=== PATIENT | male | born 1955 | race Caucasian/White ===

== ENCOUNTER 2016-10-21 20:51 | Inpatient (IN) ==
[2016-10-21] MEDS ORDERED: 0.9 % Sodium Chloride 1,000 ML IVC ONE ×3 (21:08→23:02)
[2016-10-21] MEDS ORDERED: 0.9 % Sodium Chloride 1,000 ML ONE (21:08)
[2016-10-21 21:28] LABS: Red Blood Count 3.08 M/mcL (4.19-5.50)
[2016-10-21 21:30] LABS: Hematocrit 31.1 % (37.5-50.1); Hemoglobin 10.7 g/dL (12.9-16.9); Immature Platelets 2.8 % (1.1-6.1); Mean Corpuscular HGB Conc 34.4 g/dL (31.6-35.5); Mean Corpuscular Hemoglobin 34.7 pg (28.0-33.3); Mean Platelet Volume 10.2 fL (9.4-12.4); Red Cell Distribution Width 16.7 % (11.5-14.5)
[2016-10-21 21:31] LABS: Platelet Count 56 K/mcL (140-400)
[2016-10-21 21:36] LABS: INR 2.4; Prothrombin Time 26.4 Seconds (9.4-12.1)
[2016-10-21 21:38] LABS: Activated Partial Thrombo Time 44.9 Seconds (26.0-36.0)
[2016-10-21 21:43] LABS: ABG Base Excess -8.1 mEq/L (-2.0 to 3.0); ABG HCO3 16.7 mEQ/L (21-27); ABG Oxygen Saturation 70 % (95-98); ABG PCO2 31 mmHg (35-45); ABG PH 7.34 pH Units (7.32-7.45); ABG TCO2 17.7 mEq/L (20-26); Blood Gas FiO2 21 %; Carboxyhemoglobin 1.6 % (0-5)
[2016-10-21 21:44] LABS: Alanine Aminotransferase 30 Units/L (0-55); Albumin/Globulin Ratio 0.4 (1.1-2.2); Alkaline Phosphatase 58 Units/L (38-126); Aspartate Amino Transferase 126 Units/L (5-34); BUN/Creatinine Ratio 14 (6-26); Bilirubin,Direct 3.6 mg/dL (0.0-0.5); Bilirubin,Indirect 1.9 mg/dL (0.0-1.2); Blood Urea Nitrogen 53 mg/dL (8-26); Calcium 8.4 mg/dL (8.6-10.8); Carbon Dioxide 15 mEq/L (19-29); Chloride 109 mEq/L (98-109); Creatine Kinase 1634 Units/L (30-200); Globulin 4.6 g/dL (2.4-3.5); Glucose 68 mg/dL (70-99); Osmolality,Calculated 301 (280-300); Potassium 3.5 mEq/L (3.5-4.5); Sodium 139 mEq/L (136-145); Total Protein 6.5 g/dL (6.0-8.3); eGFR For African Americans 19 (> 60); eGFR For Non-African Americans 16 (> 60)
[2016-10-21 21:44] LABS: ABG PO2 39 mmHg (85-104)
[2016-10-21 21:45] LABS: Albumin 1.9 g/dL (3.5-5.0); Ethanol < 10 mg/dL (0-10)
[2016-10-21 22:16] LABS: Lymphocytes # 1.1 K/mcL (0.6-4.6); Monocytes # 0.4 K/mcL (0.0-1.3); Neutrophils # 7.6 K/mcL (1.6-8.9)
[2016-10-21 22:18] LABS: Dohle Bodies Present (Not Present); Toxic Granulation Present (Not Present)
[2016-10-21 22:20] LABS: Anisocytosis 1+ (Not Present); Burr Cells 1+ (Not Present); Platelet Estimate Marked Decrease (Normal); Polychromasia 1+ (Not Present)
[2016-10-21 22:39] LABS: Thyroid Stimulating Hormone 0.763 mcIU/mL (0.350-4.840)
[2016-10-21 22:40] LABS: Bilirubin,Total 5.5 mg/dL (0.2-1.2)
--- NOTE | 2016-10-21 23:05 | Emergency Department Note ---
Disposition Clinical Impression: Dehydration Altered mental status Qualifiers: Altered mental status type: transient alteration of awareness Qualified Code(s) : R40.4 - Transient alteration of awareness Ascites Qualifiers: Ascites type: due to alcoholic cirrhosis Qualified Code(s): K70.31 - Alcoholic cirrhosis of liver with ascites Cirrhosis Qualifiers: Hepatic cirrhosis type: alcoholic cirrhosis Ascites presence: with ascites Qualified Code(s): K70.31 - Alcoholic cirrhosis of liver with ascites Acute kidney failure Qualifiers: Acute renal failure type: with acute tubular necrosis Qualified Code(s): N17.0 - Acute kidney failure with tubular necrosis Disposition: Admitted As Inpatient Condition: Fair Altered Mental Status HPI - General Chief Complaint: ED Altered Mental Status Stated Complaint: fell/hypoglycemic Time Seen by Provider: 10/21/16 20:57 Source: patient, EMS Limitations: altered mental status Nursing Notes Reviewed: Yes Vital Signs Reviewed: Yes - History of Present Illness HPI Narrative: She has a 61-year-old male who was found down in his home today he could have possibly been there for up to 48 hours. He does not have a life alert system when the squad arrived his blood sugar was 40. The patient is very confused he does not remember what happened and does not understand his surroundings at this time. His caregiver was present on arrival she states he has been more confused the last several days. He does suffer from chronic liver disease and gets frequent visits for paracentesis. The patient is unable to give any significant information on what happened he is not complaining of any pain. - Related Data Home Medications Medication Instructions Recorded Confirmed Ranitidine HCl [Heartburn Relief] 150 mg PO BID 02/28/16 10/22/16 Diazepam [Valium] 5 mg PO Q4H PRN 07/22/16 10/22/16 Previous Rx's Medication Instructions Recorded Furosemide [Lasix] 40 mg PO DAILY #30 tablet 04/26/16 Lactulose 20 gm PO BID 30 Days 04/26/16 Magnesium Oxide [Mag-Ox] 400 mg PO BID #60 tablet 07/24/16 Potassium Chloride 20 meq PO DAILY #30 tab.er.prt 07/24/16 HYDROcodone/Acet 5/325 mg [[place] 1 tab PO Q6H PRN #30 tab 08/25/16 5-325 mg] Nadolol [Corgard] 20 mg PO DAILY #30 tablet 12/16/16 Allergies Allergy/AdvReac Type Severity Reaction Status Date / Time aspirin AdvReac Severe Gastrointestinal Verified 08/23/16 07:43 Upset NSAIDS (Non-Steroidal AdvReac Severe Gastrointestinal Verified 08/23/16 07:43 Anti-Inflamma Upset Limitations: ROS unobtainable due to patients medical condition Past Medical History - Past Medical History Source: patient, old records reviewed, obtained from family, nursing notes reviewed Medical history: Reports: cirrhosis, hepatitis Surgical history: Reports: no surgical history Psychiatric history: Reports: no psych history - Social History Smoking Status: Current every day smoker Smokeless Tobacco Status: No Alcohol use: Reports: heavy, recent Drug use: Reports: none Physical Exam - General Limitations: altered mental status General appearance: in no apparent distress - Head Head exam: atraumatic, normocephalic, normal inspection - Eye Eye exam: Present: normal appearance, PERRL, EOMI - ENT ENT exam: mucous membranes dry - Neck Neck exam: Present: normal inspection, full ROM, trachea midline - Chest Chest inspection: Present: normal inspection, symmetric chest wall rise - Respiratory Respiratory exam: Present: other (Bilateral scattered rhonchi) - Cardiovascular Cardiovascular exam: Present: regular rate, normal rhythm, normal heart sounds - Abdominal Exam Abdominal exam: Present: distention, normal bowel sounds - Male exam: Present: scrotal swelling - Back Exam Back exam: Present: normal inspection, full ROM. Absent: tenderness - Neurological Exam Neurological exam: Present: alert, CN II-XII intact - Psychiatric Psychiatric exam: Present: other (Patient confused) Course - Reevaluation(s) Reevaluation #1: I requested dr. rivas hospitalist to eval at bedside. Time: 23:34 Reevaluation #2: SEPSIS FLUIDS NOT ORDERED DUE TO LARGE ASCITES, HOSPITALIST AT BEDSIDE, ZOSYN TO BE STARTED, CONT GENTLE HYDRATION. Time: 23:50 Vital Signs Temperature 97.3 F L 10/21/16 20:54 Pulse Rate 101 10/21/16 20:54 Respiratory Rate 16 10/21/16 20:54 Blood Pressure 87/57 10/21/16 20:54 O2 Sat by Pulse Oximetry 100 10/21/16 20:54 Temperature 97.4 F L 10/22/16 20:03 Pulse Rate 78 10/22/16 20:03 Respiratory Rate 23 10/22/16 20:03 Blood Pressure 99/62 10/22/16 20:03 O2 Sat by Pulse Oximetry 98 10/22/16 20:03 Oxygen Delivery Oxygen Delivery Nasal Cannula Altered Mental Status - Differential Diagnosis Likely: altered mental status, delirium, dementia, hypoglycemia, subarachnoid hemorrhage - Medical Records Medical records reviewed: Yes I reviewed the patient's medical records. - Lab Data Lab results reviewed: Yes I reviewed the patient's lab results. Result diagrams: 10/22/16 01:15 10/22/16 01:15 Lab Results 10/21/16 10/21/16 10/21/16 Range/Units 20:56 21:16 21:16 WBC 9.3 (4.3-11.1) K/mcL RBC 3.08 L (4.19-5.50) M/mcL Hgb 10.7 L (12.9-16.9) g/dL Hct 31.1 L (37.5-50.1) % MCV 101.0 H (83.0-100.0) fL MCH 34.7 H (28.0-33.3) pg MCHC 34.4 (31.6-35.5) g/dL RDW 16.7 H (11.5-14.5) % Plt Count 56 L (140-400) K/mcL MPV 10.2 (9.4-12.4) fL Seg Neutrophils % 40.0 % Band Neutrophils % 42.0 H (0-4) % Lymphocytes % 12.0 % Monocytes % 4.0 % Metamyelocytes % 2.0 H (0) % Neutrophils # 7.6 (1.6-8.9) K/mcL Lymphocytes # 1.1 (0.6-4.6) K/mcL Monocytes # 0.4 (0.0-1.3) K/mcL Toxic Granulation Present A (Not Present) Dohle Bodies Present A (Not Present) Platelet Estimate Marked Decrease L (Normal) Immature Plt Fraction 2.8 (1.1-6.1) % Polychromasia 1+ A (Not Present) Anisocytosis 1+ A (Not Present) [place] Cells 1+ A (Not Present) PT 26.4 H (9.4-12.1) Seconds INR 2.4 APTT 44.9 H (26.0-36.0) Seconds ABG pH (7.32-7.45) pH Units ABG pCO2 (35-45) mmHg ABG pO2 (85-104) mmHg ABG HCO3 (21-27) mEQ/L ABG Total CO2 (20-26) mEq/L ABG O2 Saturation (95-98) % ABG Base Excess (-2.0 to 3.0) mEq/L Carboxyhemoglobin (0-5) % Blood Gas Modality Inspired O2 % Sodium (136-145) mEq/L Potassium (3.5-4.5) mEq/L Chloride (98-109) mEq/L Carbon Dioxide (19-29) mEq/L BUN (8-26) mg/dL Creatinine (0.72-1.25) mg/dL Est GFR ( Amer) (> 60) Est GFR (Non-Af Amer) (> 60) BUN/Creatinine Ratio (6-26) Glucose (70-99) mg/dL POC Glucose 130 H (58-89) Calculated Osmolality (280-300) Lactic Acid (0.5-2.2) mmol/L Calcium (8.6-10.8) mg/dL Total Bilirubin (0.2-1.2) mg/dL Direct Bilirubin (0.0-0.5) mg/dL Indirect Bilirubin (0.0-1.2) mg/dL AST (5-34) Units/L ALT (0-55) Units/L Alkaline Phosphatase (38-126) Units/L Ammonia (18-72) mcmol/L Creatine Kinase (30-200) Units/L Troponin I (0-0.03) ng/mL Serum Total Protein (6.0-8.3) g/dL Albumin (3.5-5.0) g/dL Globulin (2.4-3.5) g/dL Albumin/Globulin Ratio (1.1-2.2) TSH (0.350-4.840) mcIU/mL Ethyl Alcohol (0-10) mg/dL A. baumannii (TEM-PCR) (Not Detect) Zoe albicans (PCR) (Not Detect) C. glabrata (PCR) (Not Detect) C. krusei (PCR) (Not Detect) C. parapsilosis (PCR) (Not Detect) C. tropicalis (PCR) (Not Detect) Enterobacteriac sp PCR (Not Detect) E. cloacae complex PCR (Not Detect) Enterococcus sp PCR (Not Detect) E. coli (PCR) (Not Detect) H. influenzae DNA (Not Detect) Klebsiella oxytoca PCR (Not Detect) Klebsiella pneumoniae (Not Detect) Listeria (PCR) (Not Detect) N. meningitidis (PCR) (Not Detect) Proteus species (PCR) (Not Detect) Serratia marcescens PCR (Not Detect) Staphylococcus sp PCR (Not Detect) Staph aureus (PCR) (Not Detect) MRS (TEM-PCR) (Not Detect) Streptococcus sp PCR (Not Detect) Group A Strep DNA (Not Detect) Group B Strep (PCR) (Not Detect) Strep pneumoniae (PCR) (Not Detect) P. aeruginosa (TEM-PCR) (Not Detect) VRE (PCR) (Not Detect) KPC (blaKPC) Detect PCR (Not Detect) 10/21/16 10/21/16 10/21/16 Range/Units 21:16 21:16 21:16 WBC (4.3-11.1) K/mcL RBC (4.19-5.50) M/mcL Hgb (12.9-16.9) g/dL Hct (37.5-50.1) % MCV (83.0-100.0) fL MCH (28.0-33.3) pg MCHC (31.6-35.5) g/dL RDW (11.5-14.5) % Plt Count (140-400) K/mcL MPV (9.4-12.4) fL Seg Neutrophils % % Band Neutrophils % (0-4) % Lymphocytes % % Monocytes % % Metamyelocytes % (0) % Neutrophils # (1.6-8.9) K/mcL Lymphocytes # (0.6-4.6) K/mcL Monocytes # (0.0-1.3) K/mcL Toxic Granulation (Not Present) Dohle Bodies (Not Present) Platelet Estimate (Normal) Immature Plt Fraction (1.1-6.1) % Polychromasia (Not Present) Anisocytosis (Not Present) [place] Cells (Not Present) PT (9.4-12.1) Seconds INR APTT (26.0-36.0) Seconds ABG pH (7.32-7.45) pH Units ABG pCO2 (35-45) mmHg ABG pO2 (85-104) mmHg ABG HCO3 (21-27) mEQ/L ABG Total CO2 (20-26) mEq/L ABG O2 Saturation (95-98) % ABG Base Excess (-2.0 to 3.0) mEq/L Carboxyhemoglobin (0-5) % Blood Gas Modality Inspired O2 % Sodium 139 (136-145) mEq/L Potassium 3.5 (3.5-4.5) mEq/L Chloride 109 (98-109) mEq/L Carbon Dioxide 15 L (19-29) mEq/L BUN 53 H (8-26) mg/dL Creatinine 3.84 H (0.72-1.25) mg/dL Est GFR ( Amer) 19 L (> 60) Est GFR (Non-Af Amer) 16 L (> 60) BUN/Creatinine Ratio 14 (6-26) Glucose 68 L (70-99) mg/dL POC Glucose (58-89) Calculated Osmolality 301 H (280-300) Lactic Acid (0.5-2.2) mmol/L Calcium 8.4 L (8.6-10.8) mg/dL Total Bilirubin 5.5 H (0.2-1.2) mg/dL Direct Bilirubin 3.6 H (0.0-0.5) mg/dL Indirect Bilirubin 1.9 H (0.0-1.2) mg/dL AST 126 H (5-34) Units/L ALT 30 (0-55) Units/L Alkaline Phosphatase 58 (38-126) Units/L Ammonia 68 (18-72) mcmol/L Creatine Kinase 1634 H (30-200) Units/L Troponin I 0.03 (0-0.03) ng/mL Serum Total Protein 6.5 (6.0-8.3) g/dL Albumin 1.9 L (3.5-5.0) g/dL Globulin 4.6 H (2.4-3.5) g/dL Albumin/Globulin Ratio 0.4 L (1.1-2.2) TSH 0.763 (0.350-4.840) mcIU/mL Ethyl Alcohol < 10 (0-10) mg/dL A. baumannii (TEM-PCR) (Not Detect) Zoe albicans (PCR) (Not Detect) C. glabrata (PCR) (Not Detect) C. krusei (PCR) (Not Detect) C. parapsilosis (PCR) (Not Detect) C. tropicalis (PCR) (Not Detect) Enterobacteriac sp PCR (Not Detect) E. cloacae complex PCR (Not Detect) Enterococcus sp PCR (Not Detect) E. coli (PCR) (Not Detect) H. influenzae DNA (Not Detect) Klebsiella oxytoca PCR (Not Detect) Klebsiella pneumoniae (Not Detect) Listeria (PCR) (Not Detect) N. meningitidis (PCR) (Not Detect) Proteus species (PCR) (Not Detect) Serratia marcescens PCR (Not Detect) Staphylococcus sp PCR (Not Detect) Staph aureus (PCR) (Not Detect) MRS (TEM-PCR) (Not Detect) Streptococcus sp PCR (Not Detect) Group A Strep DNA (Not Detect) Group B Strep (PCR) (Not Detect) Strep pneumoniae (PCR) (Not Detect) P. aeruginosa (TEM-PCR) (Not Detect) VRE (PCR) (Not Detect) KPC (blaKPC) Detect PCR (Not Detect) 10/21/16 10/21/16 10/21/16 Range/Units 21:16 21:16 21:19 WBC (4.3-11.1) K/mcL RBC (4.19-5.50) M/mcL Hgb (12.9-16.9) g/dL Hct (37.5-50.1) % MCV (83.0-100.0) fL MCH (28.0-33.3) pg MCHC (31.6-35.5) g/dL RDW (11.5-14.5) % Plt Count (140-400) K/mcL MPV (9.4-12.4) fL Seg Neutrophils % % Band Neutrophils % (0-4) % Lymphocytes % % Monocytes % % Metamyelocytes % (0) % Neutrophils # (1.6-8.9) K/mcL Lymphocytes # (0.6-4.6) K/mcL Monocytes # (0.0-1.3) K/mcL Toxic Granulation (Not Present) Dohle Bodies (Not Present) Platelet Estimate (Normal) Immature Plt Fraction (1.1-6.1) % Polychromasia (Not Present) Anisocytosis (Not Present) [place] Cells (Not Present) PT (9.4-12.1) Seconds INR APTT (26.0-36.0) Seconds ABG pH 7.34 (7.32-7.45) pH Units ABG pCO2 31 L (35-45) mmHg ABG pO2 39 L* (85-104) mmHg ABG HCO3 16.7 L (21-27) mEQ/L ABG Total CO2 17.7 L (20-26) mEq/L ABG O2 Saturation 70 L (95-98) % ABG Base Excess -8.1 L (-2.0 to 3.0) mEq/L Carboxyhemoglobin 1.6 (0-5) % Blood Gas Modality ROOM AIR Inspired O2 21 % Sodium (136-145) mEq/L Potassium (3.5-4.5) mEq/L Chloride (98-109) mEq/L Carbon Dioxide (19-29) mEq/L BUN (8-26) mg/dL Creatinine (0.72-1.25) mg/dL Est GFR ( Amer) (> 60) Est GFR (Non-Af Amer) (> 60) BUN/Creatinine Ratio (6-26) Glucose (70-99) mg/dL POC Glucose (58-89) Calculated Osmolality (280-300) Lactic Acid 5.9 H* (0.5-2.2) mmol/L Calcium (8.6-10.8) mg/dL Total Bilirubin (0.2-1.2) mg/dL Direct Bilirubin (0.0-0.5) mg/dL Indirect Bilirubin (0.0-1.2) mg/dL AST (5-34) Units/L ALT (0-55) Units/L Alkaline Phosphatase (38-126) Units/L Ammonia (18-72) mcmol/L Creatine Kinase (30-200) Units/L Troponin I (0-0.03) ng/mL Serum Total Protein (6.0-8.3) g/dL Albumin (3.5-5.0) g/dL Globulin (2.4-3.5) g/dL Albumin/Globulin Ratio (1.1-2.2) TSH (0.350-4.840) mcIU/mL Ethyl Alcohol (0-10) mg/dL A. baumannii (TEM-PCR) Not Detected (Not Detect) Zoe albicans (PCR) Not Detected (Not Detect) C. glabrata (PCR) Not Detected (Not Detect) C. krusei (PCR) Not Detected (Not Detect) C. parapsilosis (PCR) Not Detected (Not Detect) C. tropicalis (PCR) Not Detected (Not Detect) Enterobacteriac sp PCR DETECTED A (Not Detect) E. cloacae complex PCR Not Detected (Not Detect) Enterococcus sp PCR Not Detected (Not Detect) E. coli (PCR) Not Detected (Not Detect) H. influenzae DNA Not Detected (Not Detect) Klebsiella oxytoca PCR Not Detected (Not Detect) Klebsiella pneumoniae DETECTED A (Not Detect) Listeria (PCR) Not Detected (Not Detect) N. meningitidis (PCR) Not Detected (Not Detect) Proteus species (PCR) Not Detected (Not Detect) Serratia marcescens PCR Not Detected (Not Detect) Staphylococcus sp PCR Not Detected (Not Detect) Staph aureus (PCR) Not Detected (Not Detect) MRS (TEM-PCR) N/A (Not Detect) Streptococcus sp PCR Not Detected (Not Detect) Group A Strep DNA Not Detected (Not Detect) Group B Strep (PCR) Not Detected (Not Detect) Strep pneumoniae (PCR) Not Detected (Not Detect) P. aeruginosa (TEM-PCR) Not Detected (Not Detect) VRE (PCR) N/A (Not Detect) KPC (blaKPC) Detect PCR Not Detected (Not Detect) 10/21/16 Range/Units 23:13 WBC (4.3-11.1) K/mcL RBC (4.19-5.50) M/mcL Hgb (12.9-16.9) g/dL Hct (37.5-50.1) % MCV (83.0-100.0) fL MCH (28.0-33.3) pg MCHC (31.6-35.5) g/dL RDW (11.5-14.5) % Plt Count (140-400) K/mcL MPV (9.4-12.4) fL Seg Neutrophils % % Band Neutrophils % (0-4) % Lymphocytes % % Monocytes % % Metamyelocytes % (0) % Neutrophils # (1.6-8.9) K/mcL Lymphocytes # (0.6-4.6) K/mcL Monocytes # (0.0-1.3) K/mcL Toxic Granulation (Not Present) Dohle Bodies (Not Present) Platelet Estimate (Normal) Immature Plt Fraction (1.1-6.1) % Polychromasia (Not Present) Anisocytosis (Not Present) [place] Cells (Not Present) PT (9.4-12.1) Seconds INR APTT (26.0-36.0) Seconds ABG pH (7.32-7.45) pH Units ABG pCO2 (35-45) mmHg ABG pO2 (85-104) mmHg ABG HCO3 (21-27) mEQ/L ABG Total CO2 (20-26) mEq/L ABG O2 Saturation (95-98) % ABG Base Excess (-2.0 to 3.0) mEq/L Carboxyhemoglobin (0-5) % Blood Gas Modality Inspired O2 % Sodium (136-145) mEq/L Potassium (3.5-4.5) mEq/L Chloride (98-109) mEq/L Carbon Dioxide (19-29) mEq/L BUN (8-26) mg/dL Creatinine (0.72-1.25) mg/dL Est GFR ( Amer) (> 60) Est GFR (Non-Af Amer) (> 60) BUN/Creatinine Ratio (6-26) Glucose (70-99) mg/dL POC Glucose 75 (58-89) Calculated Osmolality (280-300) Lactic Acid (0.5-2.2) mmol/L Calcium (8.6-10.8) mg/dL Total Bilirubin (0.2-1.2) mg/dL Direct Bilirubin (0.0-0.5) mg/dL Indirect Bilirubin (0.0-1.2) mg/dL AST (5-34) Units/L ALT (0-55) Units/L Alkaline Phosphatase (38-126) Units/L Ammonia (18-72) mcmol/L Creatine Kinase (30-200) Units/L Troponin I (0-0.03) ng/mL Serum Total Protein (6.0-8.3) g/dL Albumin (3.5-5.0) g/dL Globulin (2.4-3.5) g/dL Albumin/Globulin Ratio (1.1-2.2) TSH (0.350-4.840) mcIU/mL Ethyl Alcohol (0-10) mg/dL A. baumannii (TEM-PCR) (Not Detect) Zoe albicans (PCR) (Not Detect) C. glabrata (PCR) (Not Detect) C. krusei (PCR) (Not Detect) C. parapsilosis (PCR) (Not Detect) C. tropicalis (PCR) (Not Detect) Enterobacteriac sp PCR (Not Detect) E. cloacae complex PCR (Not Detect) Enterococcus sp PCR (Not Detect) E. coli (PCR) (Not Detect) H. influenzae DNA (Not Detect) Klebsiella oxytoca PCR (Not Detect) Klebsiella pneumoniae (Not Detect) Listeria (PCR) (Not Detect) N. meningitidis (PCR) (Not Detect) Proteus species (PCR) (Not Detect) Serratia marcescens PCR (Not Detect) Staphylococcus sp PCR (Not Detect) Staph aureus (PCR) (Not Detect) MRS (TEM-PCR) (Not Detect) Streptococcus sp PCR (Not Detect) Group A Strep DNA (Not Detect) Group B Strep (PCR) (Not Detect) Strep pneumoniae (PCR) (Not Detect) P. aeruginosa (TEM-PCR) (Not Detect) VRE (PCR) (Not Detect) KPC (blaKPC) Detect PCR (Not Detect) - Radiology Data Radiology results reviewed: Yes I reviewed the patient's radiology results. TPA Checklist - LKW: 3-4.5 hrs Add. Contraindications Patient/family understanding: The patient/family members have been counseled and understood the risk, benefit , and alternatives of treatment. Critical Care Time Critical Care Time: Yes Total Critical Care Time: 40 Attestation: Critical care performed: Time is exclusive of separately billable procedures. Time includes: direct patient care, patient reassessment, coordination of patient care, interpretation of data (laboratory data, radiology data, and respiratory data), review of patient's medical records, medical consultation and documentation of patient care. Procedures included in critical care time: Procedures excluded from critical care time:
[2016-10-21] MEDS ORDERED: Piperacillin/Tazobactam 3.375 GM in D5% in Water (Mini-Bag+) 100 ML IVPB ONE (23:49)
[2016-10-22] MEDS ORDERED: Ipratropium/Albuterol Neb 3 ML IH ONE (00:03)
[2016-10-22] MEDS ORDERED: Naloxone 0.4 MG/ML INJ IVP PRN (00:17)
[2016-10-22] MEDS ORDERED: *HR* Phytonadione 5 MG TABLET PO ONE (00:24)
--- NOTE | 2016-10-22 01:15 | Internal Med History&Physical ---
Date of Encounter: 10/22/16 Time of Encounter: 00:30 Assessment and Plan (1) Hypoglycemia Current visit: Yes Status: Acute Possibly due to poor oral intake and cirrhosis of liver. Pt is on D5-NS infusion at this time (2) Acute kidney failure Current visit: Yes Status: Acute Possibility due to volume depletion versus secondary to rhabdomyolysis. Treat with intravenous fluids. Monitor renal function. CT scan of the abdomen did not show any obstructive pattern Qualifiers: Acute renal failure type: unspecified Qualified Code(s): N17.9 - Acute kidney failure, unspecified (3) Rhabdomyolysis Current visit: Yes Status: Acute Possibly due to fall. Will treat with IV fluids. Qualifiers: Rhabdomyolysis type: non-traumatic Qualified Code(s): M62.82 - Rhabdomyolysis (4) Ascites Current visit: Yes Status: Chronic Pt has bandemia. Will get paracentesis to exclude SBP. Qualifiers: Ascites type: due to alcoholic cirrhosis Qualified Code(s): K70.31 - Alcoholic cirrhosis of liver with ascites (5) Alcoholic cirrhosis of liver with ascites Current visit: Yes Status: Chronic (6) Bandemia Current visit: Yes Status: Acute Possibly due to infection. Urine studies not available. Blood cultures sent. Need paracentesis to exclude SBP. Emperically start zosyn (7) Lactic acidosis Current visit: Yes Status: Acute Need to exclude sepsis. Cultures pending. Emperically treated with zosyn. Monitor lactate level. Treat with IV fluids. (8) Coagulopathy Current visit: Yes Status: Acute Likely due to cirrhosis of liver. Vitamin K PO. (9) Thrombocytopenia Current visit: No Status: Chronic Possibly due to cirrhosis of liver. Monitor platelet count (10) Bronchitis Current visit: Yes Status: Acute Treat with bronchodilators, on antibiotics (11) Hepatic encephalopathy Current visit: Yes Status: Acute Treat with lactulose (12) Alcohol abuse Current visit: Yes Status: Chronic Will start on Thiamin, folic acid, multivitamins, CIWA protocol (13) Macrocytosis Current visit: Yes Status: Chronic Will check Vitamin B12 and folate level. (14) DVT prophylaxis Current visit: Yes Status: Acute Pt has coagulopathy with INR > 2 and thrombocytopenia. No anticoagulants at this time Internal Medicine - H&P: HPI Chief complaint: Found on the floor; hypoglycemia Admitted From: Emergency Dept Plans for Post Hospital Care: Home History of present illness: Mr. Hook is a 61 year old male with medical history significant for alcoholic liver disease /cirrhosis with ascites, portal hypertension, hepatitis C, thrombocytopenia and coagulopathy related to liver cirrhosis. Pt is not able to give clinical details and I have obtained his sister who is at the bedside in the emergency department. I also discussed with the ER physician. Patient apparently was found on the floor by his sister. He was apparently naked and was confused, when his sister found him (last time she visited was about 2 days earlier). His sister called for EMS, and was noted to have the glucose of about 40. He was evaluated in the emergency department and was noted to have acute renal failure with creatinine of 3.84. He was given IV fluids. Treated for hypoglycemia. CT scan of the chest and abdomenwere done. He was noted to have bandemia and elevated lactate. He is admitted to the hospitalist service for further management. Pts sister reports that pt was heavy alcoholic in the past. He started to drink alcohol again, but very less compared to the past. He does not eat much. Pt denies chest pain, shortness of breath. Reports vague abdominal pain. No nausea or vomiting. No incontinence. Past Med Surg Social Fam HX - Past Medical History Medical history: cirrhosis, hepatitis Psychiatric history: no psych history - Past Surgical History Surgical History: no surgical history - Social History Smoking Status: Current every day smoker Smokeless Tobacco Status: No Alcohol use: heavy, recent Drug use: none - Family History Father Adopted: No Family Member Ethnicity: Non- Living Status: Hx Family Cardiac Disorders: No Hx Family Respiratory Disorders: No Hx Family Cancer: No Hx Family GI Disorders: No Hx Family Endocrine Disorder: No Hx Family Neuromuscular Disorders: No Hx Family Neurologic Disorders: No Hx Family HEENT Disorders: No Hx Family Autoimmune Disorders: No Mother Adopted: No Family Member Ethnicity: Non- Living Status: Hx Family Cardiac Disorders: Yes Hx Family Respiratory Disorders: No Hx Family Cancer: No Hx Family GI Disorders: No Hx Family Endocrine Disorder: No Hx Family Neuromuscular Disorders: No Hx Family Neurologic Disorders: No Hx Family HEENT Disorders: No Hx Family Autoimmune Disorders: No Internal Medicine - H&P: Meds Ranitidine HCl [Heartburn Relief] 150 mg PO BID 02/28/16 [History] HYDROcodone/Acet 5/325 mg [[place] 5-325 mg] 1 tab PO Q4H PRN 04/21/16 [History] Furosemide [Lasix] 40 mg PO DAILY #30 tablet 04/26/16 [Rx] Lactulose 20 gm PO BID 30 Days 04/26/16 [Rx] Spironolactone [Aldactone] 100 mg PO DAILY #30 tablet 04/26/16 [Rx] Diazepam [Valium] 5 mg PO Q4H PRN 07/22/16 [History] Magnesium Oxide [Mag-Ox] 400 mg PO BID #60 tablet 07/24/16 [Rx] Potassium Chloride 20 meq PO DAILY #30 tab.er.prt 07/24/16 [Rx] HYDROcodone/Acet 5/325 mg [[place] 5-325 mg] 1 tab PO Q6H PRN #30 tab 08/25/16 [Rx ] Nadolol [Corgard] 20 mg PO DAILY #30 tablet 08/25/16 [Rx] Spironolactone [Aldactone] 100 mg PO DAILY #30 tablet 08/25/16 [Rx] Allergies aspirin Adverse Reaction (Severe, Verified 08/23/16 07:43) Gastrointestinal Upset BLEEDING/NAUSEA/VOMITING NSAIDS (Non-Steroidal Anti-Inflamma Adverse Reaction (Severe, Verified 08/23/16 07:43) Gastrointestinal Upset BLEEDING/NAUSEA/VOMITING All Systems PM: A 10-system review of systems was performed and is negative for pertinent findings except as documented above in the HPI. - Constitutional Vitals: Temp Pulse Resp BP Pulse Ox 97.3 F L 93 16 106/62 100 10/21/16 20:54 10/22/16 00:53 10/22/16 00:53 10/22/16 00:53 10/22/16 00:53 Exam: General: Not in acute distress at the time of my evaluation HEENT: Oral mucosa is dry. No conjunctival palor or scleral icterus Neck: No obvious neck swellings Lungs: Bilateral wheeze present Cardiac: Regular rate and rhythm. No significant murmurs Abdomen: Distended, abdominal wall edema present. Mild tenderness over the left upper quadrant area Genitourinary: No calzada catheter. There is swelling of the prepuse. Redness of the scrotum present Neurological: Confused. No gross localizing deficits. Flapping tremor present Psych: Not aggressive or agitated Extremities: leg edema Skin: No generalized rash Internal Med - H&P Results - Labs CBC & Chem 7: 10/22/16 01:15 10/22/16 01:15 - EKG Data -: EKG Interpreted by Myself EKG shows normal: sinus rhythm Rate: normal - Impressions ITS Impressions Chest X-Ray 10/21/16 21:07 IMPRESSION: In this patient with chronic right hemidiaphragm elevation, new bandlike opacity may represent worsening atelectasis or developing pneumonitis. D/ / Parrish Waters MD / Parrish Waters MD Interpreting Provider: Parrish Waters MD Chest CT 10/21/16 22:18 IMPRESSION: 1. Cirrhosis and portal hypertension. Large volume ascites and body wall edema stable from prior exam. 2. Secretions in the proximal trachea. Trace right pleural effusion. Atelectasis in the right middle lobe and in the superior segment of the right lower lobe. D/ / Parrish Waters MD / Parrish Waters MD Interpreting Provider: Parrish Waters MD Head CT 10/21/16 22:18 IMPRESSION: No acute intracranial hemorrhage or mass effect. Moderate cerebral white matter small vessel ischemic disease without substantial interval change. D/ / Eliceo Coffman MD / Eliceo Coffman MD Interpreting Provider: Eliceo Coffman MD Abdomen/Pelvis CT 10/21/16 22:49
[2016-10-22 01:36] LABS: Hemoglobin 10.7 g/dL (12.9-16.9); Mean Corpuscular Hemoglobin 34.6 pg (28.0-33.3); Red Blood Count 3.09 M/mcL (4.19-5.50)
[2016-10-22 01:38] LABS: Hematocrit 31.1 % (37.5-50.1); INR 2.7; Mean Corpuscular HGB Conc 34.4 g/dL (31.6-35.5); Mean Corpuscular Volume 100.6 fL (83.0-100.0); Mean Platelet Volume 10.1 fL (9.4-12.4); Prothrombin Time 30.2 Seconds (9.4-12.1); Red Cell Distribution Width 16.4 % (11.5-14.5)
[2016-10-22] MEDS: D5% in 0.9% NACL 1,000 ML IVC SCH ×2 (01:44→12:35)
[2016-10-22 01:49] LABS: Albumin/Globulin Ratio 0.4 (1.1-2.2); Bilirubin,Total 5.6 mg/dL (0.2-1.2); Calcium 8.4 mg/dL (8.6-10.8); Globulin 4.6 g/dL (2.4-3.5); Magnesium 1.6 mg/dL (1.6-2.6); Potassium 3.6 mEq/L (3.5-4.5); Total Protein 6.5 g/dL (6.0-8.3)
[2016-10-22 01:50] LABS: Albumin 1.9 g/dL (3.5-5.0)
[2016-10-22 01:56] LABS: Estimated Average Glucose < 68 mg/dl; Hemoglobin A1C <= 3.9 %
[2016-10-22 03:34] LABS: Bilirubin,Urine Small (Negative); Blood,Urine Negative (Negative); Clarity,Urine Cloudy (Clear); Color,Urine Dark Yellow (Yellow); Glucose,Urine (UA) Normal (Normal); Ketones,Urine Trace mg/dL (Negative); Leukocyte Esterase,Urine Small (Negative); Nitrite,Urine Negative (Negative); PH,Urine 5.5 pH Units (5.0-8.0); Protein,Urine Trace mg/dL (Neg-Trace); Urobilinogen,Urine Normal (Normal)
[2016-10-22 03:35] LABS: Bacteria,Urine Many per hpf (None-Few); Hyaline Casts,Urine None Seen per lpf (None-Few); Squamous Epithelial Cell,Urine Many per lpf (None-Few)
[2016-10-22 03:41] LABS: Amphetamine Screen,Urine Negative ng/mL (Cutoff=1000); Barbiturate Screen,Urine Negative ng/mL (Cutoff=200); Benzodiazepines Screen,Urine Positive ng/mL (Cutoff=200); Cannabinoid Screen,Urine Negative ng/mL (Cutoff = 50); Cocaine Screen,Urine Negative ng/mL (Cutoff= 300); Opiate Screen,Urine Positive ng/mL (Cutoff=300); Phencyclidine Screen,Urine Negative ng/mL (Cutoff=25)
[2016-10-22] MEDS ORDERED: 0.9 % Sodium Chloride 250 ML IVC ONE (04:23)
[2016-10-22] MEDS ORDERED: *HR* LORazepam 2 MG/ML VIAL IVP PRN ×3 (04:24)
[2016-10-22 06:49] LABS: Folate 4.2 ng/mL (7.0-31.4); Vitamin B12 > 2000 pg/mL (213-816)
[2016-10-22] MEDS ORDERED: *HR* Heparin 5,000 UNIT/ML VIAL SQ SCH (07:00)
[2016-10-22] MEDS ORDERED: Piperacillin/Tazobactam 2.25 GM in D5% in Water (Mini-Bag+) 100 ML IVPB SCH (08:00)
[2016-10-22] MEDS ORDERED: Folic Acid 1 MG TABLET PO SCH (09:00)
[2016-10-22] MEDS ORDERED: Lactulose Oral Soln 20 GM/30 ML UDC PO SCH (09:00)
[2016-10-22] MEDS: Albumin 25% 25gram/100mL 25 GM/100 ML IV.SOLN IVPB SCH ×2 (10:37→15:19)
[2016-10-22 10:44] LABS: Acinetobacter baumannii by PCR Not Detected (Not Detect); Candida albicans by PCR Not Detected (Not Detect); Candida glabrata by PCR Not Detected (Not Detect); Candida krusei by PCR Not Detected (Not Detect); Candida parapsilosis by PCR Not Detected (Not Detect); Candida tropicalis by PCR Not Detected (Not Detect); Enterococcus by PCR Not Detected (Not Detect); Escherichia coli by PCR Not Detected (Not Detect); Klebsiella oxytoca by PCR Not Detected (Not Detect); Klebsiella pneumoniae by PCR ***DETECTED*** (Not Detect); Pseudomonas aeruginosa by PCR Not Detected (Not Detect); Serratia marcescens by PCR Not Detected (Not Detect); Staphylococcus aureus by PCR Not Detected (Not Detect); Streptococcus agalactiae(B)PCR Not Detected (Not Detect); Streptococcus by PCR Not Detected (Not Detect); Streptococcus pneumoniae PCR Not Detected (Not Detect); Streptococcus pyogenes (A) PCR Not Detected (Not Detect); blaKPC Carbapenem-Resist Gene Not Detected (Not Detect)
--- NOTE | 2016-10-22 11:37 | Neurology - Consult Note ---
Date of Encounter: 10/22/16 Time of Encounter: 11:01 Assessment and Plan (1) Acute kidney failure Current Visit: Yes Status: Acute 1. ARF most likely has ATN, prerenal sec to poor by mouth intake in the setting of diuretics and borderline low BP CK level is elevated at 1634, not significant enough to cause renal failure Check urine sodium, serum uric acid level, PC ratio Hold diuretics, continue IV fluids, monitor I and O. CT abdomen negative for hydronephrosis 2. Low serum bicarbonate. Repeat ABG. Probably has combination of respiratory alkalosis and metabolic acidosis. Plan to start bicarbonate supplements based on ABG Qualifiers: Acute renal failure type: unspecified Qualified Code(s): N17.9 - Acute kidney failure, unspecified History of Present Illness Chief complaint: Renal failure HPI: Mr. Hook is a 61 year old male with h/o alcoholism, hep C, cirrhosis complicated by portal HTN, Thrombocytopenia and coagulopathy. He was found on the floor, confused by his sister and was brought to the ER by shruthi Sanabria. Accu-Chek was 40. bp 106/62, pulse 93 Labs were significant for cr 3.8, 42% bands, INR 2.4, lactic acid level 5.9 CT abdomen; large volume ascites. CT chest; trace right pleural effusion and atelectasis of the right middle lobe and lower lobe. CT head small vessel ischemic change, no acute event Was taking furosemide, SPIRONOLACTONE, magnesium potassium supplements and hydrocodone D5NS and Zosyn were started empirically Baseline cr 0.8-1.1 last year, 1.3 last month, serum globulin elevated at 4.6. UA has trace protein. had Large volume ascites on 09/19/2016. Patient is awake, oriented 3, very slow to respond, does not have much recollection of recent events. Last drink was a beer, a week ago on Sunday as per pt. c/o burning pain with voiding last week. Denies taking OTC meds. Daughter at bedside Past Med Surg Social Fam HX - Past Medical History Medical history: cirrhosis, hepatitis Psychiatric history: no psych history - Past Surgical History Surgical History: no surgical history - Social History Smoking Status: Current every day smoker Smokeless Tobacco Status: No Alcohol use: heavy, recent Drug use: none - Family History Father Adopted: No Family Member Ethnicity: Non- Living Status: Hx Family Cardiac Disorders: No Hx Family Respiratory Disorders: No Hx Family Cancer: No Hx Family GI Disorders: No Hx Family Endocrine Disorder: No Hx Family Neuromuscular Disorders: No Hx Family Neurologic Disorders: No Hx Family HEENT Disorders: No Hx Family Autoimmune Disorders: No Mother Adopted: No Family Member Ethnicity: Non- Living Status: Hx Family Cardiac Disorders: Yes Hx Family Respiratory Disorders: No Hx Family Cancer: No Hx Family GI Disorders: No Hx Family Endocrine Disorder: No Hx Family Neuromuscular Disorders: No Hx Family Neurologic Disorders: No Hx Family HEENT Disorders: No Hx Family Autoimmune Disorders: No Medications and Allergies Ranitidine HCl [Heartburn Relief] 150 mg PO BID 02/28/16 [History] HYDROcodone/Acet 5/325 mg [[place] 5-325 mg] 1 tab PO Q4H PRN 04/21/16 [History] Furosemide [Lasix] 40 mg PO DAILY #30 tablet 04/26/16 [Rx] Lactulose 20 gm PO BID 30 Days 04/26/16 [Rx] Spironolactone [Aldactone] 100 mg PO DAILY #30 tablet 04/26/16 [Rx] Diazepam [Valium] 5 mg PO Q4H PRN 07/22/16 [History] Magnesium Oxide [Mag-Ox] 400 mg PO BID #60 tablet 07/24/16 [Rx] Potassium Chloride 20 meq PO DAILY #30 tab.er.prt 07/24/16 [Rx] HYDROcodone/Acet 5/325 mg [[place] 5-325 mg] 1 tab PO Q6H PRN #30 tab 08/25/16 [Rx ] Nadolol [Corgard] 20 mg PO DAILY #30 tablet 08/25/16 [Rx] Spironolactone [Aldactone] 100 mg PO DAILY #30 tablet 08/25/16 [Rx] Allergies aspirin Adverse Reaction (Severe, Verified 08/23/16 07:43) Gastrointestinal Upset BLEEDING/NAUSEA/VOMITING NSAIDS (Non-Steroidal Anti-Inflamma Adverse Reaction (Severe, Verified 08/23/16 07:43) Gastrointestinal Upset BLEEDING/NAUSEA/VOMITING All Systems: A 10-system review of systems was performed and is negative for pertinent findings except as documented above in the HPI. GI; by mouth intake has been poor. c/o abdominal pain cvs; has chronic swelling of legs and abdominal distention, unclear if it is getting worse Physical Examination - Vital Signs Vital Signs: Initial Vital Signs Temp Pulse Resp BP Pulse Ox 97.3 F L 101 16 87/57 100 10/21/16 20:54 10/21/16 20:54 10/21/16 20:54 10/21/16 20:54 10/21/16 20:54 - Exam Exam: HEENT; PERRL, pallor and icterus present Neck; supple no JVD no lymphadenopathy no carotid bruit CVS; s1s2 present, regular, no murmurs RESP; decreased air entry, coarse rhonchi present ABD; distended, soft, NT, BS present, unable to appreciate organomegaly, no bruits, abd wall edema present EXT; 3+ edema, DP pulses palpable. 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 3 Results - Laboratory Findings CBC and BMP: 10/22/16 01:15 10/22/16 01:15 Abnormal lab findings: Abnormal lab results RBC 3.09 M/mcL (4.19-5.50) L 10/22/16 01:15 Hgb 10.7 g/dL (12.9-16.9) L 10/22/16 01:15 Hct 31.1 % (37.5-50.1) L 10/22/16 01:15 MCV 100.6 fL (83.0-100.0) H 10/22/16 01:15 MCH 34.6 pg (28.0-33.3) H 10/22/16 01:15 RDW 16.4 % (11.5-14.5) H 10/22/16 01:15 Plt Count 53 K/mcL (140-400) L 10/22/16 01:15 Band Neutrophils % 42.0 % (0-4) H 10/21/16 21:16 Metamyelocytes % 2.0 % (0) H 10/21/16 21:16 Toxic Granulation Present (Not Present) A 10/21/16 21:16 Dohle Bodies Present (Not Present) A 10/21/16 21:16 Platelet Estimate Marked Decrease (Normal) L 10/21/16 21:16 Polychromasia 1+ (Not Present) A 10/21/16 21:16 Anisocytosis 1+ (Not Present) A 10/21/16 21:16 Pearl Cells 1+ (Not Present) A 10/21/16 21:16 PT 30.2 Seconds (9.4-12.1) H 10/22/16 01:15 APTT 44.9 Seconds (26.0-36.0) H 10/21/16 21:16 ABG pCO2 31 mmHg (35-45) L 10/21/16 21:19 ABG pO2 39 mmHg (85-104) L* 10/21/16 21:19 ABG HCO3 16.7 mEQ/L (21-27) L 10/21/16 21:19 ABG Total CO2 17.7 mEq/L (20-26) L 10/21/16 21:19 ABG O2 Saturation 70 % (95-98) L 10/21/16 21:19 ABG Base Excess -8.1 mEq/L (-2.0 to 3.0) L 10/21/16 21:19 Chloride 111 mEq/L (98-109) H 10/22/16 01:15 Carbon Dioxide 16 mEq/L (19-29) L 10/22/16 01:15 BUN 54 mg/dL (8-26) H 10/22/16 01:15 Creatinine 3.84 mg/dL (0.72-1.25) H 10/22/16 01:15 Est GFR ( Amer) 19 (> 60) L 10/22/16 01:15 Est GFR (Non-Af Amer) 16 (> 60) L 10/22/16 01:15 Glucose 68 mg/dL (70-99) L 10/22/16 01:15 Calculated Osmolality 303 (280-300) H 10/22/16 01:15 Lactic Acid 4.1 mmol/L (0.5-2.2) H* 10/22/16 05:50 Calcium 8.4 mg/dL (8.6-10.8) L 10/22/16 01:15 Total Bilirubin 5.6 mg/dL (0.2-1.2) H 10/22/16 01:15 Direct Bilirubin 3.6 mg/dL (0.0-0.5) H 10/21/16 21:16 Indirect Bilirubin 1.9 mg/dL (0.0-1.2) H 10/21/16 21:16 AST 131 Units/L (5-34) H 10/22/16 01:15 Creatine Kinase 1236 Units/L (30-200) H 10/22/16 01:15 Albumin 1.9 g/dL (3.5-5.0) L 10/22/16 01:15 Globulin 4.6 g/dL (2.4-3.5) H 10/22/16 01:15 Albumin/Globulin Ratio 0.4 (1.1-2.2) L 10/22/16 01:15 Vitamin B12 > 2000 pg/mL (213-816) H 10/22/16 05:50 Folate 4.2 ng/mL (7.0-31.4) L 10/22/16 05:50 Urine Clarity Cloudy (Clear) A 10/22/16 03:27 Urine Ketones Trace mg/dL (Negative) H 10/22/16 03:27 Urine Bilirubin Small (Negative) H 10/22/16 03:27 Ur Leukocyte Esterase Small (Negative) H 10/22/16 03:27 Urine Microscopic RBC 3-5 per hpf (0-3) H 10/22/16 03:27 Urine Microscopic WBC 5-15 per hpf (0-3) H 10/22/16 03:27 Ur Squamous Epith Cells Many per lpf (None-Few) H 10/22/16 03:27 Urine Bacteria Many per hpf (None-Few) H 10/22/16 03:27 Ur Culture Indicated? YES (NO) A 10/22/16 03:27 Urine Opiates Screen Positive ng/mL (Fpngdr=291) H 10/22/16 03:27 U Benzodiazepines Scrn Positive ng/mL (Wickuj=567) H 10/22/16 03:27 Enterobacteriac sp PCR DETECTED (Not Detect) A 10/21/16 21:16 Klebsiella pneumoniae DETECTED (Not Detect) A 10/21/16 21:16 Consult Discharge Plan - Plan Referrals: Zhou Kern Jr, MD [Primary Care Provider] -
[2016-10-22] MEDS: *HR* Morphine 2 MG/ML SYRINGE IVP PRN ×2 (12:23→21:20)
[2016-10-22] MEDS: Piperacillin/Tazobactam 3.375 GM in D5% in Water (Mini-Bag+) 100 ML IVPB SCH (12:34)
[2016-10-22] MEDS: Thiamine (B-1) 100 MG TABLET PO SCH (12:51)
[2016-10-22] MEDS: Multivit/Ca/Min/Fe/FA 1 TAB TABLET PO SCH (12:51)
--- NOTE | 2016-10-22 14:42 | Electrocardiograph Report ---
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
[2016-10-22 16:28] LABS: ABG HCO3 18.6 mEQ/L (21-27); ABG Oxygen Saturation 95 % (95-98); ABG PCO2 37 mmHg (35-45); ABG PH 7.31 pH Units (7.32-7.45); ABG PO2 81 mmHg (85-104); ABG TCO2 19.7 mEq/L (20-26); Blood Gas Liter Flow 4 L/MIN
[2016-10-22 16:29] LABS: Blood Gas FiO2 36 %
--- NOTE | 2016-10-22 17:14 | Internal Med Progress Note ---
Date of Encounter: 10/22/16 Time of Encounter: 09:00 - Assessment and plan (1) Bacteremia due to Gram-negative bacteria Current Visit: Yes Status: Acute Assessment and plan: Blood culture positive for gram-negative rebecca. We will repeat the blood culture. On zosyn now. Wait for final culture report. (2) Acute kidney failure Current Visit: Yes Status: Acute Assessment and plan: Likely has ATN. We will continue IV fluid, monitor I and O, follow renal function. Nephrology consult appreciated. Qualifiers: Acute renal failure type: with acute tubular necrosis Qualified Code(s): N17.0 - Acute kidney failure with tubular necrosis (3) Altered mental status Current Visit: Yes Status: Acute Assessment and plan: Patient is confused, ammonia level 68. We will continue lactulose, add rifaxamin and zinc, keep 2-3 bowel movements a day. follow-up ammonia level Qualifiers: Altered mental status type: transient alteration of awareness Qualified Code(s): R40.4 - Transient alteration of awareness (4) Bandemia Current Visit: Yes Status: Acute Assessment and plan: Continue antibiotic, Tap Ascites tomorrow to rule out SBP (5) Bronchitis Current Visit: Yes Status: Acute Assessment and plan: Patient has secretion, bronchitis versus pneumonia, continue Zosyn. (6) Cirrhosis Current Visit: Yes Status: Acute Assessment and plan: Treatment plan as above. Per family, patient has been evaluated for liver transplant but not a good candidate because of noncompliance. Qualifiers: Hepatic cirrhosis type: alcoholic cirrhosis Ascites presence: with ascites Qualified Code(s): K70.31 - Alcoholic cirrhosis of liver with ascites (7) DVT prophylaxis Current Visit: Yes Status: Acute Assessment and plan: EPCD (8) Dehydration Current Visit: Yes Status: Acute Assessment and plan: We will continue Albumin infusion and IVF. (9) Hepatic encephalopathy Current Visit: Yes Status: Acute Assessment and plan: Continue lactulose, rifaximin, and zinc. Follow-up ammonia level (10) Hypoglycemia Current Visit: Yes Status: Acute Assessment and plan: Close the monitor glucose level. Currently 154 (11) Rhabdomyolysis Current Visit: Yes Status: Acute Assessment and plan: Continue hydrate patient, follow-up CK level. Qualifiers: Rhabdomyolysis type: non-traumatic Qualified Code(s): M62.82 - Rhabdomyolysis (12) Alcohol abuse Current Visit: Yes Status: Chronic Assessment and plan: CIWA protocol applied, banana bag x3 days. (13) Alcoholic cirrhosis of liver with ascites Current Visit: Yes Status: Chronic Assessment and plan: Treatment as above (14) Portal hypertension Current Visit: No Status: Chronic Assessment and plan: Continue nadolol and lasix, PPI to provent bleeding. - Time Spent With Patient Greater than 35 minutes - Subjective Interval history: Patient is a 61-year-old male admitted for altered mental status and hypoglycemia. His past medical history is significant for old colic or liver disease/cirrhosis with ascites, hep C, current alcoholic. I saw and examined the patient. He is in acute respiratory distress, but oxygen saturation is acceptable. Patient is awake alert, mildly confused, oriented 2. His blood pressure at a lower side. Will continue antibiotic treatment for lung infection and possible SBP. Give IV albumin for low BP. Plan for paracentasis tomorrow. Nephrology consult was appreciated. Discussed with patient's sister and daughter, they told me that patient is generally noncompliant with his medication. He still drinks alcohol now. His condition is critical now, family verbalized understanding. All questions answered. - Constitutional Vitals: Temp Pulse Resp BP Pulse Ox 98.1 F 99 20 97/71 97 10/22/16 15:30 10/22/16 15:45 10/22/16 15:30 10/22/16 15:30 10/22/16 15:30 General appearance: Present: A&O X 2, mild distress - Head Head exam: Present: atraumatic, normocephalic - Eye Eye exam: Present: PERRL, conjuntiva pink, sclera anicteric Pupils: Present: PERRL - Neck Neck exam general surgery: Present: supple, trachea midline. Absent: lymphadenopathy - Respiratory Respiratory exam: Present: CTAB. Absent: accessory muscle use, rales, rhonchi, wheezes - Cardiovascular Cardiovascular exam: Present: RRR, +S1, +S2. Absent: diastolic murmur, gallop, rubs, systolic murmur - GI/Abdominal GI/Abdominal exam: Present: distended, normal bowel sounds, soft, no peritoneal signs. Absent: tenderness - Extremities Exam Extremities exam: Present: warm, radial pulses palpable and symetrical. Absent : calf tenderness, cyanotic, pedal edema - Neurological Exam Neurological exam: Present: CN II-XII intact, oriented X3, no focal deficits. Absent: pronater drift, facial droop, speech deficit - Skin Skin exam: Present: dry, intact Internal Medicine: Result - Labs CBC & Chem 7: 10/22/16 01:15 10/22/16 01:15 Labs: Short CBC 10/22/16 Range/Units 01:15 WBC 8.3 (4.3-11.1) K/mcL Hgb 10.7 L (12.9-16.9) g/dL Hct 31.1 L (37.5-50.1) % Plt Count 53 L (140-400) K/mcL BMP 10/22/16 01:15 Sodium 140 Potassium 3.6 Chloride 111 H Carbon Dioxide 16 L BUN 54 H Creatinine 3.84 H Glucose 68 L Calcium 8.4 L Liver Function 10/22/16 Range/Units 01:15 Total Bilirubin 5.6 H (0.2-1.2) mg/dL AST 131 H (5-34) Units/L ALT 30 (0-55) Units/L Alkaline Phosphatase 56 (38-126) Units/L Albumin 1.9 L (3.5-5.0) g/dL Urine 10/22/16 Range/Units 03:27 Urine Color Dark Yellow (Yellow) Urine Clarity Cloudy A (Clear) Urine pH 5.5 (5.0-8.0) pH Units Ur Specific [place] 1.020 (1.010-1.025) Urine Protein Trace (Neg-Trace) mg/dL Urine Glucose (UA) Normal (Normal) mg/dL - ABG Interpretation ABG results: ABG ABG pH 7.31 pH Units (7.32-7.45) L 10/22/16 16:20 ABG pCO2 37 mmHg (35-45) 10/22/16 16:20 ABG pO2 81 mmHg (85-104) L 10/22/16 16:20 ABG O2 Saturation 95 % (95-98) 10/22/16 16:20 PT/INR, D-dimer PT 30.2 Seconds (9.4-12.1) H 10/22/16 01:15 Consult Discharge Plan - Plan Referrals: Zhou Kern Jr, MD [Primary Care Provider] -
[2016-10-22] MEDS: Zinc Sulfate 220 MG CAPSULE PO SCH (18:28)
[2016-10-22] MEDS: Thiamine (B-1) 100 MG, Folic Acid 1 MG, MVI, adult with vitamin K 10 ML in 0.9 % Sodi... IVPB SCH (18:29)
[2016-10-22] MEDS: Lactulose Oral Soln 20 GM/30 ML UDC PO SCH (21:21)
[2016-10-22] MEDS: Ipratropium/Albuterol Neb 3 ML IH PRN (22:19)
[2016-10-22 22:33] LABS: Protein/Creatinine Ratio,Urine 0.67 mg/mg (0-0.20)
[2016-10-23] MEDS: Albumin 25% 25gram/100mL 25 GM/100 ML IV.SOLN IVPB SCH ×2 (00:19→07:43)
[2016-10-23] MEDS: Piperacillin/Tazobactam 3.375 GM in D5% in Water (Mini-Bag+) 100 ML IVPB SCH ×2 (01:57→12:44)
[2016-10-23 04:20] LABS: ABG Base Excess -5.4 mEq/L (-2.0 to 3.0); ABG HCO3 21.9 mEQ/L (21-27); ABG Oxygen Saturation 70 % (95-98); ABG PCO2 51 mmHg (35-45); ABG PH 7.24 pH Units (7.32-7.45); ABG TCO2 23.5 mEq/L (20-26)
[2016-10-23 04:21] LABS: Blood Gas FiO2 28 %
[2016-10-23 04:23] LABS: ABG PO2 44 mmHg (85-104)
[2016-10-23 04:28] LABS: Basophils % 0.1 %; Eosinophils % 0.3 %; Hematocrit 31.5 % (37.5-50.1); Hemoglobin 10.3 g/dL (12.9-16.9); Immature Granulocytes % 0.6 % (0-4); Lymphocytes # 1.1 K/mcL (0.6-4.6); Lymphocytes % 9.2 %; Mean Corpuscular HGB Conc 32.7 g/dL (31.6-35.5); Mean Corpuscular Hemoglobin 34.7 pg (28.0-33.3); Mean Corpuscular Volume 106.1 fL (83.0-100.0); Mean Platelet Volume 10.3 fL (9.4-12.4); Monocytes % 8.7 %; Neutrophils # 9.6 K/mcL (1.6-8.9); Red Blood Count 2.97 M/mcL (4.19-5.50); Red Cell Distribution Width 16.8 % (11.5-14.5); Segmented Neutrophils % 81.1 %
[2016-10-23] MEDS ORDERED: Furosemide 20 MG/2 ML VIAL IVP ONE ×2 (04:30→05:06)
[2016-10-23 04:41] LABS: Albumin/Globulin Ratio 0.7 (1.1-2.2); Calcium 7.8 mg/dL (8.6-10.8); Globulin 4.1 g/dL (2.4-3.5); Magnesium 2.1 mg/dL (1.6-2.6); Phosphorous 5.9 mg/dL (2.3-4.7); Potassium 3.8 mEq/L (3.5-4.5); Total Protein 6.8 g/dL (6.0-8.3)
[2016-10-23 04:44] LABS: Albumin 2.7 g/dL (3.5-5.0); Bilirubin,Total 5.5 mg/dL (0.2-1.2)
[2016-10-23 04:56] LABS: Platelet Count 62 K/mcL (140-400)
[2016-10-23] MEDS ORDERED: Sodium Bicarbonate 50 MEQ in 0.45 % Sodium Chloride 1,000 ML IVC SCH (05:00)
[2016-10-23 05:04] LABS: Platelet Estimate Decreased (Normal)
[2016-10-23 05:05] LABS: Macrocytosis Present (Not Present)
[2016-10-23] MEDS ORDERED: 0.9 % Sodium Chloride 250 ML ONE (05:05)
[2016-10-23] MEDS: Sodium Bicarbonate 50 MEQ in 0.45 % Sodium Chloride 1,000 ML IVC SCH (05:21)
[2016-10-23] MEDS: Ipratropium/Albuterol Neb 3 ML IH PRN ×4 (05:42→21:01)
[2016-10-23] MEDS: Lactulose Oral Soln 20 GM/30 ML UDC PO SCH ×3 (07:44→19:38)
[2016-10-23] MEDS: Thiamine (B-1) 100 MG TABLET PO SCH (07:44)
[2016-10-23] MEDS: Zinc Sulfate 220 MG CAPSULE PO SCH (07:44)
[2016-10-23] MEDS: Multivit/Ca/Min/Fe/FA 1 TAB TABLET PO SCH (07:45)
[2016-10-23] MEDS ORDERED: *HR* Midazolam HCl 5 MG/5 ML VIAL IVP ONE (07:47)
[2016-10-23] MEDS ORDERED: *HR* Etomidate 40 MG/20 ML VIAL IVP ONE (07:47)
[2016-10-23] MEDS ORDERED: Vancomycin 1,500 MG in D5% in Water 250 ML IVPB ONE (08:00)
--- NOTE | 2016-10-23 08:14 | Gastroenterology Consult Note ---
<Lula Crespo - Last Filed: 10/23/16 11:42> Date of Encounter: 10/23/16 Time of Encounter: 10:40 - Assessment and plan (1) Hepatitis C Current Visit: Yes Status: Chronic Assessment and plan: genotype 2B, viral load 6 mil Qualifiers: Viral hepatitis chronicity: chronic Hepatic coma status: without hepatic coma Qualified Code(s): B18.2 - Chronic viral hepatitis C (2) Acute kidney failure Current Visit: Yes Status: Acute Assessment and plan: 2ndary to cirrhosis - hepatorenal syndrome? or 2ndary to rhabdomyolysis? Consider midodrine therapy. Add midodrine conservatively based on patient respiratory and hemodynamic status at 2.5 mg tid. Adding octreotide SQ [address] Feliz. Qualifiers: Acute renal failure type: with acute tubular necrosis Qualified Code(s): N17.0 - Acute kidney failure with tubular necrosis (3) Coagulopathy Current Visit: Yes Status: Acute (4) Hepatic encephalopathy Current Visit: Yes Status: Chronic Assessment and plan: Patient was to have been on lactulose, titrate to 2-4 BM daily, xifaxan and zinc supplements. (5) Lactic acidosis Current Visit: Yes Status: Resolved Assessment and plan: Currently resolved, likely 2ndary to rhabdomyolysis (6) Alcoholic cirrhosis of liver with ascites Current Visit: Yes Status: Chronic Assessment and plan: MELD Na 37, MELD 37, ChildsPugh C, discriminate function 88.8. R/O SBP. Patient has paracentesis with cellstudies and cytology ordered for today. Due to diminished kidney function during patient last OV with Dr. Feliz in Sep 2016, discussion surrounded possible TIPS for patient refractory ascites. (7) SBP (spontaneous bacterial peritonitis) Current Visit: Yes Status: Acute Assessment and plan: Patient receiving atbs. Add albumin infusion of 1.5 g/kg today and 1.0 g/kg tomorrow x 2 days. Awaiting FFP instillation to correct patient coagulopathy then paracentesis. I/R is having to place a central line for access. - Time Spent With Patient Total time spent is greater than 50% in coordination of care (as documented) at patient's floor/unit and/or counseling patient: less than 15 minutes GI History of Present Illness - Data of Consult Patient: known to practice within the last 3 years Consult date: 10/23/16 Requesting Physician: Sarkis Li MD - Consult Narrative Reason for consult: Cirrhosis, hepatorenal syndrome, etoh History of present illness: Mr. Hook is a 61 year old male with a PMH etoh liver disease with refractory ascites, portal htn, encephalopathy, hepatitis C, thrombocytopenia and coagulopathy well known to GI service. He was last seen in OV with Dr. Feliz at which time possible TIPS placement was discussed. Patient has been admitted for continued complications secondary to his alcoholic cirrhosis multiple times over the past year (2015). Pt was not able to give clinical details at the time of this admission. He was reportedly found on the floor of his home and may have been there up to 48 hours. He was hypoglycemic, found with lactic acidosis and altered mental status. Initial diagnosis of rhabdomyolysis, he is scheduled for paracentesis today to r/o SBP. He is on prophylactic antibiotics. He was found to be in acute kidney failure during this hospitalization. Patient continues to consume alcohol. Patient was unable to verbally respond to me at the time of my examination, he was able to follow commands. He is currently on BIPAP, extremely lethargic, but not difficult to arouse. No family at bedside at the time of my exam, therefore, the above information is taken from the medical records. Colonoscopy: 2010 - Aleida - hyperplastic polyp EGD: 08/2016 - Trini - RAJESH Grade B esoph, portal HTN gastropathy Past Med Surg Social Fam HX - Past Medical History Medical history: cirrhosis, hepatitis Psychiatric history: no psych history - Past Surgical History Surgical History: no surgical history - Social History Smoking Status: Current every day smoker Smokeless Tobacco Status: No Alcohol use: heavy, recent Drug use: none - Family History Father Adopted: No Family Member Ethnicity: Non- Living Status: Hx Family Cardiac Disorders: No Hx Family Respiratory Disorders: No Hx Family Cancer: No Hx Family GI Disorders: No Hx Family Endocrine Disorder: No Hx Family Neuromuscular Disorders: No Hx Family Neurologic Disorders: No Hx Family HEENT Disorders: No Hx Family Autoimmune Disorders: No Mother Adopted: No Family Member Ethnicity: Non- Living Status: Hx Family Cardiac Disorders: Yes Hx Family Respiratory Disorders: No Hx Family Cancer: No Hx Family GI Disorders: No Hx Family Endocrine Disorder: No Hx Family Neuromuscular Disorders: No Hx Family Neurologic Disorders: No Hx Family HEENT Disorders: No Hx Family Autoimmune Disorders: No ROS unobtainable: due to mental status - Constitutional Vitals: Temp Pulse Resp BP Pulse Ox 95.9 F L 63 12 100/65 94 L 10/23/16 07:14 10/23/16 07:14 10/23/16 07:37 10/23/16 07:37 10/23/16 07:37 General appearance: Present: disheveled - Head Head exam: Present: atraumatic, normocephalic - Eye Eye exam: Present: scleral icterus - ENT ENT exam: Present: mucous membranes dry Additional comments: BIPAP in place - Neck Neck exam general surgery: Present: normal inspection, trachea midline - Respiratory Additional comments: BIPAP - Cardiovascular Cardiovascular exam: Present: +S1, +S2 - GI/Abdominal GI/Abdominal exam: Present: distended, firm, hernia - Rectal Rectal exam: Present: deferred - Extremities Exam Extremities exam: Present: pedal edema, warm - Neurological Exam Neurological exam: Present: altered - Psychiatric Psychiatric exam: Present: flat affect - Skin Skin exam: Present: pallor Results - Labs CBC & Chem 7: 10/23/16 04:16 10/23/16 04:16 Labs: Last Result Calcium 7.8 mg/dL (8.6-10.8) L 10/23/16 04:16 Troponin I 0.03 ng/mL (0-0.03) 10/21/16 21:16 Vitamin B12 > 2000 pg/mL (213-816) H 10/22/16 05:50 Folate 4.2 ng/mL (7.0-31.4) L 10/22/16 05:50 Urine Opiates Screen Positive ng/mL (Jjptxi=615) H 10/22/16 03:27 Entire Visit Hgb 10.3 g/dL (12.9-16.9) L 10/23/16 04:16 Hct 31.5 % (37.5-50.1) L 10/23/16 04:16 PT 30.2 Seconds (9.4-12.1) H 10/22/16 01:15 Total Bilirubin 5.5 mg/dL (0.2-1.2) H 10/23/16 04:16 AST 99 Units/L (5-34) H 10/23/16 04:16 ALT 36 Units/L (0-55) 10/23/16 04:16 Ammonia 51 mcmol/L (18-72) 10/23/16 04:16 Folate 4.2 ng/mL (7.0-31.4) L 10/22/16 05:50 E. coli (PCR) Not Detected (Not Detect) 10/21/16 21:16 - ABG ABG results: ABG ABG pH 7.24 pH Units (7.32-7.45) L 10/23/16 04:05 ABG pCO2 51 mmHg (35-45) H 10/23/16 04:05 ABG pO2 44 mmHg (85-104) L* 10/23/16 04:05 ABG O2 Saturation 70 % (95-98) L 10/23/16 04:05 PT/INR, D-dimer PT 30.2 Seconds (9.4-12.1) H 10/22/16 01:15 Consult Discharge Plan - Plan Referrals: Zhou Kenr Jr, MD [Primary Care Provider] - 11/01/16 11:40 am <Leila Feliz - Last Filed: 10/23/16 14:20> Time of Encounter: 11:00 - Time Spent With Patient Total time spent is greater than 50% in coordination of care (as documented) at patient's floor/unit and/or counseling patient: GI History of Present Illness - Data of Consult Requesting Physician: Sarkis Li MD - Consult Narrative History of present illness: Mr. Hook is a 61 year old male - Constitutional Vitals: Temp Pulse Resp BP Pulse Ox 95.8 F L 62 13 95/67 94 L 10/23/16 12:45 10/23/16 12:45 10/23/16 12:45 10/23/16 12:45 10/23/16 12:45 Results - Labs CBC & Chem 7: 10/23/16 04:16 10/23/16 04:16 Labs: Last Result Calcium 7.8 mg/dL (8.6-10.8) L 10/23/16 04:16 Troponin I 0.03 ng/mL (0-0.03) 10/21/16 21:16 Vitamin B12 > 2000 pg/mL (213-816) H 10/22/16 05:50 Folate 4.2 ng/mL (7.0-31.4) L 10/22/16 05:50 Peritoneal Tot Protein 1.1 g/dL (No Ref Range) 10/23/16 12:00 Peritoneal Albumin 0.5 g/dL (No Ref Range) 10/23/16 12:00 Urine Opiates Screen Positive ng/mL (Luohye=234) H 10/22/16 03:27 Entire Visit Hgb 10.3 g/dL (12.9-16.9) L 10/23/16 04:16 Hct 31.5 % (37.5-50.1) L 10/23/16 04:16 PT 24.7 Seconds (9.4-12.1) H 10/23/16 09:37 Total Bilirubin 5.5 mg/dL (0.2-1.2) H 10/23/16 04:16 AST 99 Units/L (5-34) H 10/23/16 04:16 ALT 36 Units/L (0-55) 10/23/16 04:16 Ammonia 51 mcmol/L (18-72) 10/23/16 04:16 Folate 4.2 ng/mL (7.0-31.4) L 10/22/16 05:50 E. coli (PCR) Not Detected (Not Detect) 10/21/16 21:16 - ABG ABG results: ABG ABG pH 7.24 pH Units (7.32-7.45) L 10/23/16 04:05 ABG pCO2 51 mmHg (35-45) H 10/23/16 04:05 ABG pO2 44 mmHg (85-104) L* 10/23/16 04:05 ABG O2 Saturation 70 % (95-98) L 10/23/16 04:05 PT/INR, D-dimer PT 24.7 Seconds (9.4-12.1) H 10/23/16 09:37 - Attending Attestation I examined this patient and my medical decision-making was reviewed with the HEALTH CARE ADMINISTRATOR/PA/Advanced Practice Nurse/Resident Physician. I agree with the documented findings, disposition and treatment plan as described except to the extent set forth below. Neena have seeing alcoholic cirrhosis now with acute liver failure along with renal failure and sepsis most probably due to SBP. Rec: IV albumin, octreotide, midodrine for his renal failure. For his SBP IV abs along with IV albumin. Had a paracentesis done today. Rifaximin for encephalopathy ,prognosis is very poor
[2016-10-23] MEDS ORDERED: Furosemide 40 MG TABLET PO SCH (09:00)
--- NOTE | 2016-10-23 09:01 | Nephrology Progress Note ---
Date of Encounter: 10/23/16 Time of Encounter: 08:59 - Assessment and Plan (1) Acute kidney failure Current Visit: Yes Status: Acute Patient has acute kidney injury in the setting of urinary tract infection gram- negative sepsis cirrhosis with ascites and portal hypertension and volume overload and hypotension. Patient remains oliguric. Azotemia is worsening. I am going to place the patient on a Lasix drip to see if this helps with his urine output. I suspect he is going to need transfer to the intensive care unit and placed on Nilda patient was unable to answer whether or not he wished to proceed with dialysis when I asked him. We will try to contact his family to see if they have any input. Qualifiers: Acute renal failure type: with acute tubular necrosis Qualified Code(s): N17.0 - Acute kidney failure with tubular necrosis (2) Bacteremia due to Gram-negative bacteria Current Visit: Yes Status: Acute (3) Alcoholic cirrhosis of liver with ascites Current Visit: Yes Status: Chronic (4) Bacteremia due to Gram-positive bacteria Current Visit: No Status: Acute (5) Hepatitis C antibody test positive Current Visit: No Status: Acute Subjective Interval history: According to the patient's nurse the patient has deteriorated overnight. He became hypotensive and is now on low-dose dopamine. He is also been placed on BiPAP. From a renal perspective he remains oliguric and his azotemia continues to worsen. Objective - Vital Signs Vital signs: Vital Signs Temp Pulse Resp BP Pulse Ox 10/23/16 08:05 67 10/23/16 07:37 12 100/65 94 L 10/23/16 07:14 95.9 F L 63 20 90/75 94 L 10/23/16 05:42 16 96 10/23/16 03:51 95.4 F L 68 16 82/50 96 10/23/16 00:00 95.8 F L 72 24 95/64 93 L 10/22/16 20:03 97.4 F L 78 23 99/62 98 10/22/16 15:45 99 10/22/16 15:30 98.1 F 95 20 97/71 97 10/22/16 13:10 94 10/22/16 11:26 97.0 F L 94 18 105/63 99 10/22/16 09:43 97 Intake and Output 10/22/16 10/23/16 10/23/16 23:59 07:59 15:59 Intake Total 436 / 436 188.4 / 188.4 Output Total 100 / 100 100 / 100 50 / 50 Balance 336 / 336 88.4 / 88.4 -50 / -50 Intake: IV Fluids 200 / 200 188.4 / 188.4 D5% And 0.9% Nacl 1000 Ml 0 / 0 1,000 ML @ 75 mls/hr IVC .[id number] BIJAL Rx#: [id number] DOPamine Premix (400mg/ 0 / 0 250mL D5W) 400 mg In 250 ml @ 5 MCG/KG/MIN 17.925 mls/hr IVC .[id number] BIJAL Rx#:[id number] Sodium Bicarbonate 50 MEQ 88.4 / 88.4 In 0.45% Sodium Chloride 1000 Ml 1000 Ml 1,000 ML @ 40 mls/hr IVC .Q24H BIJAL Rx#:[id number] Flexbumin 25 gm In 100 ml 100 / 100 100 / 100 @ 60 mls/hr IVPB Q8HR [facility]IJAL Rx#:[id number] Zosyn 3.375 GM In 100 / 100 Dextrose 5% (Minibag+) 100 ML 100 ML @ 25 mls/hr IVPB Q12H BIJAL Rx#: [id number] Oral 236 / 236 0 / 0 Output: Catheter 100 / 100 100 / 100 50 / 50 Other: Meal Nourishment/Supplement Weight 96.2 kg Blood Glucose* 185 96 Patient Weight 10/23/16 23:59 Weight 96.2 kg - General Appearance Exam: Patient is on BiPAP. He is in no acute distress. He really is unable to answer questions in any detail. He is on low-dose dopamine. Lungs coarse breath sounds bilaterally. Heart regular rate and rhythm. Abdomen shows diminished bowel sounds. Abdomen is obviously distended with ascites. Patient has 3+ lower extremity swelling. - Lab 10/23/16 04:16 10/23/16 04:16 Most recent lab results ABG pH 7.24 pH Units (7.32-7.45) L 10/23/16 04:05 ABG pCO2 51 mmHg (35-45) H 10/23/16 04:05 ABG pO2 44 mmHg (85-104) L* 10/23/16 04:05 ABG HCO3 21.9 mEQ/L (21-27) 10/23/16 04:05 ABG O2 Saturation 70 % (95-98) L 10/23/16 04:05 Calcium 7.8 mg/dL (8.6-10.8) L 10/23/16 04:16 Phosphorus 5.9 mg/dL (2.3-4.7) H 10/23/16 04:16 Magnesium 2.1 mg/dL (1.6-2.6) 10/23/16 04:16 Urine Creatinine 297 mg/dL 10/22/16 22:00 Urine Sodium 39.0 mEq/L 10/22/16 22:00 Urine Total Protein 198 mg/dL (1-14) H 10/22/16 22:00 Consult Discharge Plan - Plan Referrals: Zhou Kern Jr, MD [Primary Care Provider] -
[2016-10-23 09:44] LABS: INR 2.2; Prothrombin Time 24.7 Seconds (9.4-12.1)
[2016-10-23] MEDS: Furosemide 480 MG in D5% in Water 192 ML IVC SCH (10:05)
[2016-10-23] MEDS ORDERED: Albumin 25% 25gram/100mL 25 GM/100 ML IV.SOLN IVPB ONE (11:38)
[2016-10-23] MEDS ORDERED: Albumin 25% 25gram/100mL 25 GM/100 ML IV.SOLN ONE (12:15)
[2016-10-23] MEDS ORDERED: Aminoglycoside Consult 1 EACH MC ONE (12:44)
--- NOTE | 2016-10-23 13:22 | IR Procedure Note ---
Date of procedure: 10/23/16 Consent Obtained: Verbal consent Timeout: Correct patient and procedure verified, Correct site verified, Time out performed, Skin prep completed Local anesthetic: Lidocaine 1% Indications: Ascites Procedure Performed: Paracentesis Site/Technique: Paracentesis performed Results/Findings: Large ascites Estimated blood loss (cc): 1 Complications: None; Tolerated procedure well Post Procedure Treatment Plan: Continue inpatient care
[2016-10-23 14:16] LABS: Glucose,Peritoneal Fluid 133 mg/dL (No Ref Range); LDH,Peritoneal Fluid 45 Units/L (No Ref Range); Total Protein,Peritoneal Fluid 1.1 g/dL (No Ref Range)
[2016-10-23 14:18] LABS: RBC,Peritoneal Fluid < 0.002 M/mcL
--- NOTE | 2016-10-23 15:07 | Internal Med Progress Note ---
Date of Encounter: 10/23/16 Time of Encounter: 10:00 - Assessment and plan (1) Bacteremia due to Gram-negative bacteria Current Visit: Yes Status: Acute Assessment and plan: Blood culture positive for gram-negative rebecca. We will repeat the blood culture. On vanco and zosyn now. Wait for final culture report. Patient is at high risk because of vancomycin, need close monitoring. (2) Acute kidney failure Current Visit: Yes Status: Acute Assessment and plan: Likely has ATN. We will continue IV fluid, monitor I and O, follow renal function. Nephrology consult appreciated. Lasix drip was started. Qualifiers: Acute renal failure type: with acute tubular necrosis Qualified Code(s): N17.0 - Acute kidney failure with tubular necrosis (3) Altered mental status Current Visit: Yes Status: Acute Assessment and plan: Patient is confused, ammonia level slightly get Down. Mental status change is multifactoral, include acute kidney injury, hepatic disease, sepsis. We will continue treat underlying disease. Patient is at high risk because of acute change in mental status Qualifiers: Altered mental status type: transient alteration of awareness Qualified Code(s): R40.4 - Transient alteration of awareness (4) Bandemia Current Visit: Yes Status: Acute Assessment and plan: Continue antibiotic, paracentesis done, less likely SBP b/o nucleared cell only 34. (5) Bronchitis Current Visit: Yes Status: Acute Assessment and plan: Patient has secretion, bronchitis versus pneumonia, continue vanco and Zosyn. (6) Cirrhosis Current Visit: Yes Status: Acute Assessment and plan: Treatment plan as above. Per family, patient has been evaluated for liver transplant but not a good candidate because of noncompliance. Qualifiers: Hepatic cirrhosis type: alcoholic cirrhosis Ascites presence: with ascites Qualified Code(s): K70.31 - Alcoholic cirrhosis of liver with ascites (7) DVT prophylaxis Current Visit: Yes Status: Acute Assessment and plan: EPCD (8) Dehydration Current Visit: Yes Status: Acute Assessment and plan: We will continue Albumin infusion and IVF. (9) Hepatic encephalopathy Current Visit: Yes Status: Chronic Assessment and plan: Continue lactulose, rifaximin, and zinc. Follow-up ammonia level (10) Hypoglycemia Current Visit: Yes Status: Acute Assessment and plan: Close the monitor glucose level. Currently 138 (11) Rhabdomyolysis Current Visit: Yes Status: Acute Assessment and plan: Continue hydrate patient, follow-up CK level. CK level get down now. Qualifiers: Rhabdomyolysis type: non-traumatic Qualified Code(s): M62.82 - Rhabdomyolysis (12) Alcohol abuse Current Visit: Yes Status: Chronic Assessment and plan: CIWA protocol applied, banana bag x3 days. (13) Alcoholic cirrhosis of liver with ascites Current Visit: Yes Status: Chronic Assessment and plan: Treatment as above (14) Portal hypertension Current Visit: No Status: Chronic Assessment and plan: Continue nadolol and lasix, PPI to provent bleeding. (15) UTI (urinary tract infection) Current Visit: Yes Status: Acute Assessment and plan: Urine culture positive for gram-negative rebecca. Continue antibiotic treatment. Qualifiers: Urinary tract infection type: acute cystitis Qualified Code(s): N30.00 - Acute cystitis without hematuria (16) Sepsis Current Visit: Yes Status: Acute Assessment and plan: Etiology is undetermined, less likely SBP, possibly from UTI or lung infection. Continue antibiotics and supportive treatment Qualifiers: Sepsis type: sepsis due to unspecified organism Qualified Code(s): A41.9 - Sepsis, unspecified organism - Subjective Interval history: Patient is a 61-year-old male admitted for altered mental status and hypoglycemia. His past medical history is significant for old colic or liver disease/cirrhosis with ascites, hep C, current alcoholic. I saw and examined the patient. His condition is getting worse overnight. Worsening mental status. Only try to open eyes with stimulation. Cannot talk. He has hypothermia, was placed on bear hug. He has hypotension and is on dopamine drip now. IR drained about 9 L peritoneal fluid today. Fluid analysis shows nucleared cell is 34, less likely SBP. Patient has a urine infection with gram-negative rods. He also has cellulitis. Will add Vanco to cover MRSA. GI and nephrology consult appreciated. Patient is in critical condition with multiple organ dysfunction. Prognosis guarded. - Constitutional Vitals: Temp Pulse Resp BP Pulse Ox 95.8 F L 62 13 95/67 94 L 10/23/16 12:45 10/23/16 12:45 10/23/16 12:45 10/23/16 12:45 10/23/16 12:45 General appearance: Present: A&O X 0, mild distress - Head Head exam: Present: atraumatic, normocephalic - Eye Eye exam: Present: PERRL, conjuntiva pink, sclera anicteric Pupils: Present: PERRL - Neck Neck exam general surgery: Present: supple, trachea midline. Absent: lymphadenopathy - Respiratory Respiratory exam: Present: CTAB. Absent: accessory muscle use, rales, rhonchi, wheezes - Cardiovascular Cardiovascular exam: Present: RRR, +S1, +S2. Absent: diastolic murmur, gallop, rubs, systolic murmur - GI/Abdominal GI/Abdominal exam: Present: distended, normal bowel sounds, soft, tenderness, no peritoneal signs - Extremities Exam Extremities exam: Present: warm, radial pulses palpable and symetrical. Absent : calf tenderness, cyanotic, pedal edema Additional comments: Both leg and has redness and warmth on skin, no open wound no discharge. - Neurological Exam Neurological exam: Present: CN II-XII intact, oriented X3, no focal deficits. Absent: pronater drift, facial droop, speech deficit - Skin Skin exam: Present: dry, intact Internal Medicine: Result - Labs CBC & Chem 7: 10/23/16 04:16 10/23/16 04:16 Labs: Short CBC 10/23/16 Range/Units 04:16 WBC 11.8 H (4.3-11.1) K/mcL Hgb 10.3 L (12.9-16.9) g/dL Hct 31.5 L (37.5-50.1) % Plt Count 62 L (140-400) K/mcL Neutrophils # 9.6 H (1.6-8.9) K/mcL BMP 10/23/16 04:16 Sodium 139 Potassium 3.8 Chloride 113 H Carbon Dioxide 19 BUN 75 H D Creatinine 4.55 H Glucose 138 H Calcium 7.8 L Liver Function 10/23/16 Range/Units 04:16 Total Bilirubin 5.5 H (0.2-1.2) mg/dL AST 99 H (5-34) Units/L ALT 36 (0-55) Units/L Alkaline Phosphatase 48 (38-126) Units/L Albumin 2.7 L D (3.5-5.0) g/dL - ABG Interpretation ABG results: ABG ABG pH 7.24 pH Units (7.32-7.45) L 10/23/16 04:05 ABG pCO2 51 mmHg (35-45) H 10/23/16 04:05 ABG pO2 44 mmHg (85-104) L* 10/23/16 04:05 ABG O2 Saturation 70 % (95-98) L 10/23/16 04:05 PT/INR, D-dimer PT 24.7 Seconds (9.4-12.1) H 10/23/16 09:37 - Impressions Impressions Paracentesis Ultrasound 10/23/16 00:00 IMPRESSION: Successful ultrasound guided paracentesis. D/ / Kenneth Lewis MD / Kenneth Lewis MD Interpreting Provider: Kenneth Lewis MD Consult Discharge Plan - Plan Referrals: Zhou Kern Jr, MD [Primary Care Provider] - 11/01/16 11:40 am
[2016-10-23 15:49] LABS: Appearance of Peritoneal Fl CLEAR (Clear)
[2016-10-23] MEDS ORDERED: *HR* FentaNYL (PF) 100 MCG/2 ML VIAL ONE (17:15)
[2016-10-23] MEDS ORDERED: *HR* Midazolam HCl 2 MG/2 ML VIAL ONE (17:16)
--- NOTE | 2016-10-23 18:57 | Event Note ---
Date of Encounter: 10/23/16 Time of Encounter: 17:00 Pt need central line to run multiple drips and to be used for higher rate dopamine. However, pt has coagulopathy which makes central line insertion a high risk procedure. Discussed with family with the risk and benefit, they agrees to have a line. Informed consent signed. Pt had two units of FFP before the line. Pt has very thin right IJ vein. Choose left IJ vein. Sterile procedure followed. Triple lumen catheter was placed uneventfully under US guide. Withdraw three lumen all have good blood retune. Fixed at 14 cm. CXR ordered and position is confirmed. No pneumothorax. Estimated blood loss 10ml.
[2016-10-23] MEDS: Pantoprazole 40 MG VIAL IVP SCH (19:57)
[2016-10-23] MEDS: Thiamine (B-1) 100 MG, Folic Acid 1 MG, MVI, adult with vitamin K 10 ML in 0.9 % Sodi... IVPB SCH (19:59)
[2016-10-23] MEDS ORDERED: Lacri-Lube 3.5 GM TUBE BOTH EYES PRN (22:02)
[2016-10-23] MEDS ORDERED: Propofol 500 MG/50 ML INFUS..BTL ONE (22:16)
--- NOTE | 2016-10-23 22:16 | Event Note ---
Date of Encounter: 10/23/16 Time of Encounter: 21:45 Mr. Hook is a 61 year old male with medical history significant for alcoholic liver disease /cirrhosis with ascites, portal hypertension, hepatitis C, thrombocytopenia and coagulopathy related to liver cirrhosis. He was brought to the emergency department after he was found on the floor by his sister. He was hypoglycemic with blood glucose of 40 at the scene. He was noted to be acute renal failure at admission, with rhabdomyolysis, bandemia, lactic acidosis in the ER. He had significant ascites on evaluation he was empirically started on Zosyn, for suspected SBP but the peritoneal fluid analysis was negative. His urine culture growing gram negative rods and blood cultures are positive for Klebsiella pneumoniae. Pt had large volume paracentesis done today, with removal of over 9L of fluid. Pts mental status was worsening and hypotensive started on dopamine infusion. Rapid response was called as the pt is getting hypoxic on BiPAP hence he was intubated and mechanically ventilated. CXR showed worsening bilateral pulmonary infiltrates may be related to pneumonia, ARDS versus pulmonary edema. Pt is on zosyn and vancomycin at this time. Pt is transferred to ICU, from . I have discussed with the pt's sister and christa and explained the current care and poor prognosis.
[2016-10-23 22:32] LABS: ABG Oxygen Saturation 97 % (95-98); ABG PCO2 55 mmHg (35-45); ABG PH 7.21 pH Units (7.32-7.45); ABG PO2 109 mmHg (85-104); ABG TCO2 23.7 mEq/L (20-26); Blood Gas FiO2 100 %
[2016-10-24] MEDS: Lactulose Oral Soln 20 GM/30 ML UDC PO SCH ×5 (00:54→22:07)
[2016-10-24] MEDS: Lacri-Lube 3.5 GM TUBE BOTH EYES SCH ×6 (01:41→22:06)
[2016-10-24] MEDS: Piperacillin/Tazobactam 3.375 GM in D5% in Water (Mini-Bag+) 100 ML IVPB SCH ×2 (01:41→13:57)
[2016-10-24 04:21] LABS: Nucleated Red Blood Cells 0.1 /100 WBC (0); Red Cell Distribution Width 16.4 % (11.5-14.5)
[2016-10-24 04:23] LABS: Hematocrit 29.8 % (37.5-50.1); Immature Platelets 3.1 % (1.1-6.1); Mean Corpuscular HGB Conc 33.6 g/dL (31.6-35.5); Mean Corpuscular Hemoglobin 34.4 pg (28.0-33.3); Mean Corpuscular Volume 102.4 fL (83.0-100.0); Mean Platelet Volume 10.6 fL (9.4-12.4); Red Blood Count 2.91 M/mcL (4.19-5.50)
[2016-10-24 04:28] LABS: Albumin/Globulin Ratio 0.7 (1.1-2.2); Bilirubin,Total 4.9 mg/dL (0.2-1.2); Calcium 8.1 mg/dL (8.6-10.8); Globulin 3.5 g/dL (2.4-3.5); Potassium 3.4 mEq/L (3.5-4.5)
[2016-10-24 04:35] LABS: Albumin 2.3 g/dL (3.5-5.0); Total Protein 5.8 g/dL (6.0-8.3)
[2016-10-24 04:51] LABS: Platelet Count 65 K/mcL (140-400)
[2016-10-24 04:53] LABS: Lymphocytes # 1.2 K/mcL (0.6-4.6); Monocytes # 1.8 K/mcL (0.0-1.3); Neutrophils # 11.4 K/mcL (1.6-8.9)
[2016-10-24 04:54] LABS: Platelet Estimate Marked Decrease (Normal); Toxic Granulation Present (Not Present); Toxic Vacuolation Present (Not Present)
[2016-10-24] MEDS: Pantoprazole 40 MG VIAL IVP SCH ×2 (05:13→16:15)
[2016-10-24 05:46] LABS: ABG Base Excess -2.3 mEq/L (-2.0 to 3.0); ABG HCO3 23.7 mEQ/L (21-27); ABG Oxygen Saturation 90 % (95-98); ABG PCO2 45 mmHg (35-45); ABG PH 7.33 pH Units (7.32-7.45); ABG PO2 63 mmHg (85-104); ABG TCO2 25.1 mEq/L (20-26)
[2016-10-24 05:48] LABS: Blood Gas FiO2 80 %; Blood Gas PEEP 5 cm H2O; Blood Gas Respiration Rate 14; Blood Gas VT 550 cc
[2016-10-24] MEDS: Chlorhexidine Rinse 15 ML MOUTHWASH MM SCH ×2 (07:59→22:07)
[2016-10-24] MEDS: Thiamine (B-1) 100 MG TABLET PO SCH (07:59)
[2016-10-24] MEDS: Multivit/Ca/Min/Fe/FA 1 TAB TABLET PO SCH (07:59)
--- NOTE | 2016-10-24 08:13 | Nephrology Progress Note ---
Date of Encounter: 10/24/16 Time of Encounter: 08:11 - Assessment and Plan (1) Acute kidney failure Current Visit: Yes Status: Acute Patient has acute kidney injury in the setting of urinary tract infection gram- negative sepsis cirrhosis with ascites and portal hypertension and volume overload and hypotension. He is status post paracentesis with 9 L removed. His hypotension has gotten worse. IV fluids and Lasix drip been discontinued. Since his azotemia is stable and he is not hyperkalemic we will monitor him for another day. Should his azotemia worsen and/or should his urine output decrease he may require jeet. We will continue to monitor him closely. Qualifiers: Acute renal failure type: with acute tubular necrosis Qualified Code(s): N17.0 - Acute kidney failure with tubular necrosis (2) Bacteremia due to Gram-negative bacteria Current Visit: Yes Status: Acute (3) Alcoholic cirrhosis of liver with ascites Current Visit: Yes Status: Chronic (4) Bacteremia due to Gram-positive bacteria Current Visit: No Status: Acute (5) Hepatitis C antibody test positive Current Visit: No Status: Acute Subjective Interval history: The patient is now on the intensive care unit. He is intubated on the ventilator. He is status post paracentesis with approximately 9 L removed. Urine output yesterday was recorded is 825 mL. He is now on dopamine at 10 mics per kilogram per minute. His azotemia is stable. He has mild hypokalemia. Objective - Vital Signs Vital signs: Vital Signs Temp Pulse Resp BP Pulse Ox 10/24/16 07:56 15 95/55 90 L 10/24/16 07:20 78 17 95/55 93 L 10/24/16 06:26 17 96/55 93 L 10/24/16 06:00 80 16 99/58 92 L 10/24/16 05:00 81 21 100/57 91 L 10/24/16 04:30 19 88/51 92 L 10/24/16 04:16 97.7 F 10/24/16 04:00 78 24 84/50 97 10/24/16 03:00 79 20 95/55 100 10/24/16 02:25 18 115/65 98 10/24/16 02:00 84 21 101/60 99 10/24/16 01:00 81 17 99/58 98 10/24/16 00:47 22 108/62 96 02/14/17 00:44 98 F 86 24 102/61 94 L 10/24/16 00:24 98 F 87 28 108/65 95 10/24/16 00:09 98.2 F 81 23 105/59 100 10/24/16 00:00 98.2 F 85 31 112/90 96 10/23/16 23:44 97 32 108/51 77 L 10/23/16 23:38 23 123/51 99 10/23/16 23:35 98.2 F 89 21 123/51 99 10/23/16 23:20 23 98 10/23/16 23:18 97.4 F L 88 22 113/70 100 10/23/16 23:10 96 27 126/71 10/23/16 23:05 96 129/78 10/23/16 23:00 97 125/83 10/23/16 22:55 95 122/76 10/23/16 22:53 96.9 F L 95 122 122/76 10/23/16 22:50 94 120/75 10/23/16 22:45 91 120/85 10/23/16 22:40 93 26 110/76 100 10/23/16 22:38 96.8 F L 89 24 116/72 100 10/23/16 22:35 89 116/72 10/23/16 22:30 90 114/74 10/23/16 22:25 90 115/72 10/23/16 22:20 87 114/61 10/23/16 22:15 84 110/71 10/23/16 22:10 79 94/64 10/23/16 22:05 79 98/53 10/23/16 22:00 79 92/54 10/23/16 21:55 83 24 92/51 100 10/23/16 21:50 79 99/55 10/23/16 21:45 83 94/49 10/23/16 21:40 85 94/56 10/23/16 21:35 86 112/28 10/23/16 21:30 97 107/71 83 L 10/23/16 21:25 97 40 108/51 70 L 10/23/16 21:03 35 86 L 10/23/16 20:45 76 81/71 92 L 10/23/16 20:30 72 93/53 92 L 10/23/16 20:25 72 78/43 91 L 10/23/16 20:20 74 80/55 100 10/23/16 20:15 77 78/43 99 10/23/16 20:02 97.3 F L 73 30 87/53 90 L 10/23/16 20:00 73 87/53 97 10/23/16 19:45 76 102/60 95 10/23/16 19:30 79 110/65 96 10/23/16 18:46 97.1 F L 80 22 112/64 96 10/23/16 17:55 85 10/23/16 16:02 97.0 F L 72 35 96/58 87 L 10/23/16 15:47 96.9 F L 89 18 125/68 90 L 10/23/16 15:15 97.5 F L 82 13 112/61 10/23/16 12:45 95.8 F L 62 13 95/67 94 L 10/23/16 12:30 95.5 F L 63 13 92/46 96 10/23/16 11:37 59 10/23/16 11:24 96.5 F L 60 15 86/52 99 10/23/16 11:01 12 100/65 98 Intake and Output 10/23/16 10/24/16 10/24/16 23:59 07:59 15:59 Intake Total 1482.4 / 1482.4 2003.2 / 2003.2 Output Total 675 / 675 825 / 825 Balance 807.4 / 807.4 1179.2 / 1179.2 Intake: IV Fluids 235.4 / 235.4 1754.2 / 1754.2 DOPamine Premix (400mg/ 129.8 / 129.8 235 / 235 250mL D5W) 400 mg In 250 ml @ 5 MCG/KG/MIN 17.925 mls/hr IVC .[id number] [facility] Rx#:[id number] Lasix 480 MG In Dextrose 171 / 171 5% 192 ML @ 20 MG/HR 10 mls/hr IVC .Q24H [facility] Rx#: [id number] Diprivan 1,000 mg In 100 5.6 / 5.6 43 / 43 ml @ 5 MCG/KG/MIN 2.886 mls/hr IVC .Q24H [facility] Rx#: [id number] Sodium Bicarbonate 50 MEQ 694 / 694 In 0.45% Sodium Chloride 1000 Ml 1000 Ml 1,000 ML @ 40 mls/hr IVC .Q24H [facility] Rx#:[id number] Zosyn 3.375 GM In 100 / 100 100 / 100 Dextrose 5% (Minibag+) 100 ML 100 ML @ 25 mls/hr IVPB Q12H [facility] Rx#: [id number] Vitamin B-1 100 MG 511.2 / 511.2 Folvite 1 MG M.v.i. Adult 10 ml In 0.9 % Sodium Chloride 500 ML @ 85.2 mls/hr IVPB DAILY@1800 [facility] Rx#:[id number] Oral 0 / 0 Blood Product 1247 / 1247 250 / 250 Plasma Unit 248 / 248 [id number] Plasma Unit 250 / 250 [id number] Plasma Unit 999 / 999 [id number] Output: Catheter 675 / 675 625 / 625 Gastric Drainage 200 / 200 Other: Weight 91.081 kg Blood Glucose* 137 108 Patient Weight 10/24/16 23:59 Weight 91.081 kg - General Appearance Exam: Patient is sedated on the ventilator. He is on dopamine at 10 mics per kilo per minute. He is in no acute distress. Lung sounds. Heart regular rate and rhythm. Abdomen is much less distended and less tense compared to yesterday's exam. He has less lower extremity swelling. Has a Jacobs catheter in place. - Lab 10/24/16 03:59 10/24/16 03:59 Most recent lab results ABG pH 7.33 pH Units (7.32-7.45) 10/24/16 05:25 ABG pCO2 45 mmHg (35-45) 10/24/16 05:25 ABG pO2 63 mmHg (85-104) L 10/24/16 05:25 ABG HCO3 23.7 mEQ/L (21-27) 10/24/16 05:25 ABG O2 Saturation 90 % (95-98) L 10/24/16 05:25 Calcium 8.1 mg/dL (8.6-10.8) L 10/24/16 03:59 Phosphorus 5.9 mg/dL (2.3-4.7) H 10/23/16 04:16 Magnesium 2.1 mg/dL (1.6-2.6) 10/23/16 04:16 Urine Creatinine 297 mg/dL 10/22/16 22:00 Urine Sodium 39.0 mEq/L 10/22/16 22:00 Urine Total Protein 198 mg/dL (1-14) H 10/22/16 22:00 Consult Discharge Plan - Plan Referrals: Zhou Kern Jr, MD [Primary Care Provider] - 11/01/16 11:40 am
[2016-10-24] MEDS: Zinc Sulfate 220 MG CAPSULE PO SCH (08:43)
--- NOTE | 2016-10-24 10:01 | Gastroenterology Progress Note ---
<Lula Crespo - Last Filed: 10/24/16 11:07> Date of Encounter: 10/24/16 Time of Encounter: 10:45 - Assessment and plan (1) Hepatitis C Current Visit: Yes Status: Chronic Assessment and plan: genotype 2B, viral load 6 mil Qualifiers: Viral hepatitis chronicity: chronic Hepatic coma status: without hepatic coma Qualified Code(s): B18.2 - Chronic viral hepatitis C (2) Acute kidney failure Current Visit: Yes Status: Acute Assessment and plan: Likely hepatorenal syndrome - nephrology on board. Started octreotide and midodrine yesterday. Creatinine stable. Qualifiers: Acute renal failure type: with acute tubular necrosis Qualified Code(s): N17.0 - Acute kidney failure with tubular necrosis (3) Coagulopathy Current Visit: Yes Status: Acute Assessment and plan: Continue to monitor. FFP for invasive procedures if necessary, vit K (4) Hepatic encephalopathy Current Visit: Yes Status: Chronic Assessment and plan: Patient was to have been on lactulose, titrate to 2-4 BM daily, xifaxan and zinc supplements. He is currently intubated. (5) Lactic acidosis Current Visit: Yes Status: Resolved Assessment and plan: Currently resolved, likely 2ndary to rhabdomyolysis (6) Alcoholic cirrhosis of liver with ascites Current Visit: Yes Status: Chronic Assessment and plan: MELD Na 37, MELD 37, ChildsPugh C, discriminate function 88.8. Receiving treatment for SBP, atbs and albumin infusions daily. Patient had paracentesis 9L removed 10/23 with cellstudies , cytology and pathology report pending. Prognosis is poor. (7) SBP (spontaneous bacterial peritonitis) Current Visit: Yes Status: Acute Assessment and plan: Patient receiving atbs. Added albumin infusion of 1.5 g/kg 10/23 and 1.0 g/kg 2 and . - Time Spent With Patient Total time spent is greater than 50% in coordination of care (as documented) at patient's floor/unit and/or counseling patient: less than 15 minutes - Subjective Interval history: The patient is now on the intensive care unit. He is intubated on the ventilator. He is status post paracentesis with approximately 9 L removed. Abdomen is soft to palpation. Peripheral edema apparent. Urine is yellow. - Constitutional Vitals: Temp Pulse Resp BP Pulse Ox 97.6 F 77 17 95/59 90 L 10/24/16 08:40 10/24/16 08:30 10/24/16 08:30 10/24/16 08:30 10/24/16 08:30 General appearance: Present: disheveled Exam: intubated - Head Head exam: Present: atraumatic, normocephalic - Eye Eye exam: Present: scleral icterus - ENT ENT exam: Present: mucous membranes dry - Neck Neck exam general surgery: Present: normal inspection, trachea midline - Respiratory Additional comments: on ventilator - Cardiovascular Cardiovascular exam: Present: RRR, +S1, +S2 - GI/Abdominal GI/Abdominal exam: Present: hernia, soft, no peritoneal signs - Rectal Rectal exam: Present: deferred - Extremities Exam Extremities exam: Present: pedal edema Additional comments: +1 pitting b/l - Neurological Exam Additional comments: unable to assess - Psychiatric Additional comments: unable to assess - Skin Skin exam: Present: dry, warm Additional comments: jaundice Results - Labs CBC & Chem 7: 10/24/16 03:59 10/24/16 03:59 Labs: Last Result Calcium 8.1 mg/dL (8.6-10.8) L 10/24/16 03:59 Troponin I 0.03 ng/mL (0-0.03) 10/21/16 21:16 Vitamin B12 > 2000 pg/mL (213-816) H 10/22/16 05:50 Folate 4.2 ng/mL (7.0-31.4) L 10/22/16 05:50 Peritoneal Appearance CLEAR (Clear) 10/23/16 12:00 Peritoneal Volume 50.0 mL 10/23/16 12:00 Peritoneal pH 7.61 pH Units (No Ref Range) 10/23/16 12:00 Peritoneal RBC < 0.002 M/mcL (0.000-0.002) 10/23/16 12:00 Periton Tot Nuc Cells 34 TNC/mcL (0-300) 10/23/16 12:00 Periton Band Neuts 1.3 % 10/23/16 12:00 Periton Lymphocytes % 8.8 % 10/23/16 12:00 Periton Monocytes % 1.3 % 10/23/16 12:00 Periton Other Cells % 20.0 % 10/23/16 12:00 Peritoneal Tot Protein 1.1 g/dL (No Ref Range) 10/23/16 12:00 Peritoneal Albumin 0.5 g/dL (No Ref Range) 10/23/16 12:00 Peritoneal LDH 45 Units/L (No Ref Range) 10/23/16 12:00 Peritoneal Glucose 133 mg/dL (No Ref Range) 10/23/16 12:00 Urine Opiates Screen Positive ng/mL (Itiycx=248) H 10/22/16 03:27 Entire Visit Hgb 10.0 g/dL (12.9-16.9) L 10/24/16 03:59 Hct 29.8 % (37.5-50.1) L 10/24/16 03:59 PT 24.7 Seconds (9.4-12.1) H 10/23/16 09:37 Total Bilirubin 4.9 mg/dL (0.2-1.2) H 10/24/16 03:59 AST 46 Units/L (5-34) H 10/24/16 03:59 ALT 22 Units/L (0-55) 10/24/16 03:59 Ammonia 58 mcmol/L (18-72) 10/24/16 03:59 Folate 4.2 ng/mL (7.0-31.4) L 10/22/16 05:50 E. coli (PCR) Not Detected (Not Detect) 10/21/16 21:16 - ABG ABG results: ABG ABG pH 7.33 pH Units (7.32-7.45) 10/24/16 05:25 ABG pCO2 45 mmHg (35-45) 10/24/16 05:25 ABG pO2 63 mmHg (85-104) L 10/24/16 05:25 ABG O2 Saturation 90 % (95-98) L 10/24/16 05:25 PT/INR, D-dimer PT 24.7 Seconds (9.4-12.1) H 10/23/16 09:37 - Impressions Impressions Paracentesis Ultrasound 10/23/16 00:00 IMPRESSION: Successful ultrasound guided paracentesis. D/ / Kenneth Lewis MD / Kenneth Lewis MD Interpreting Provider: Kenneth Lewis MD Chest X-Ray 10/23/16 17:50 IMPRESSION: 1. Worsening bilateral lung infiltrates which may be related to pneumonia, ARDS, versus pulmonary edema. 2. Left internal jugular vein catheter tip terminates in the region of the brachiocephalic vein. No pneumothorax. D/ / 10/23/2016 18:31:01 Ric Jacobs MD / noa Interpreting Provider: Ric Jacobs MD Chest X-Ray 10/23/16 21:31 IMPRESSION: Mild interval retraction of endotracheal tube, tip projecting over the mid thoracic trachea. Bilateral multifocal consolidation. Suspect small right pleural effusion. D/ / Eliceo Coffman MD / Eliceo Coffman MD Interpreting Provider: Eliceo Coffman MD Chest X-Ray 10/23/16 21:31 IMPRESSION: Support apparatus as described above. Patchy bilateral airspace disease, increasing at the right base as compared to prior with probable posterior layering right pleural effusion. D/ / Osman Kapoor MD / Osman Kapoor MD Interpreting Provider: Osman Kapoor MD Consult Discharge Plan - Plan Referrals: Zhou Kern Jr, MD [Primary Care Provider] - 11/01/16 11:40 am <Leila Feliz - Last Filed: 10/24/16 18:22> Time of Encounter: 18:00 - Time Spent With Patient Total time spent is greater than 50% in coordination of care (as documented) at patient's floor/unit and/or counseling patient: - Constitutional Vitals: Temp Pulse Resp BP Pulse Ox 97.6 F 61 15 150/58 91 L 10/24/16 15:31 10/24/16 15:31 10/24/16 15:59 10/24/16 15:59 10/24/16 15:59 Results - Labs CBC & Chem 7: 10/24/16 03:59 10/24/16 03:59 Labs: Last Result Calcium 8.1 mg/dL (8.6-10.8) L 10/24/16 03:59 Troponin I 0.03 ng/mL (0-0.03) 10/21/16 21:16 Vitamin B12 > 2000 pg/mL (213-816) H 10/22/16 05:50 Folate 4.2 ng/mL (7.0-31.4) L 10/22/16 05:50 Peritoneal Appearance CLEAR (Clear) 10/23/16 12:00 Peritoneal Volume 50.0 mL 10/23/16 12:00 Peritoneal pH 7.61 pH Units (No Ref Range) 10/23/16 12:00 Peritoneal RBC < 0.002 M/mcL (0.000-0.002) 10/23/16 12:00 Periton Tot Nuc Cells 34 TNC/mcL (0-300) 10/23/16 12:00 Periton Band Neuts 1.3 % 10/23/16 12:00 Periton Lymphocytes % 8.8 % 10/23/16 12:00 Periton Monocytes % 1.3 % 10/23/16 12:00 Periton Other Cells % 20.0 % 10/23/16 12:00 Peritoneal Tot Protein 1.1 g/dL (No Ref Range) 10/23/16 12:00 Peritoneal Albumin 0.5 g/dL (No Ref Range) 10/23/16 12:00 Peritoneal LDH 45 Units/L (No Ref Range) 10/23/16 12:00 Peritoneal Glucose 133 mg/dL (No Ref Range) 10/23/16 12:00 Urine Opiates Screen Positive ng/mL (Mycgmm=480) H 10/22/16 03:27 Entire Visit Hgb 10.0 g/dL (12.9-16.9) L 10/24/16 03:59 Hct 29.8 % (37.5-50.1) L 10/24/16 03:59 PT 24.7 Seconds (9.4-12.1) H 10/23/16 09:37 Total Bilirubin 4.9 mg/dL (0.2-1.2) H 10/24/16 03:59 AST 46 Units/L (5-34) H 10/24/16 03:59 ALT 22 Units/L (0-55) 10/24/16 03:59 Ammonia 58 mcmol/L (18-72) 10/24/16 03:59 Folate 4.2 ng/mL (7.0-31.4) L 10/22/16 05:50 E. coli (PCR) Not Detected (Not Detect) 10/21/16 21:16 - ABG ABG results: ABG ABG pH 7.33 pH Units (7.32-7.45) 10/24/16 05:25 ABG pCO2 45 mmHg (35-45) 10/24/16 05:25 ABG pO2 63 mmHg (85-104) L 10/24/16 05:25 ABG O2 Saturation 90 % (95-98) L 10/24/16 05:25 PT/INR, D-dimer PT 24.7 Seconds (9.4-12.1) H 10/23/16 09:37 - Impressions Impressions Chest X-Ray 10/23/16 17:50 IMPRESSION: 1. Worsening bilateral lung infiltrates which may be related to pneumonia, ARDS, versus pulmonary edema. 2. Left internal jugular vein catheter tip terminates in the region of the brachiocephalic vein. No pneumothorax. D/ / 10/23/2016 18:31:01 Ric Jacobs MD / [facility] Interpreting Provider: Ric Jacobs MD Chest X-Ray 10/23/16 21:31 IMPRESSION: Mild interval retraction of endotracheal tube, tip projecting over the mid thoracic trachea. Bilateral multifocal consolidation. Suspect small right pleural effusion. D/ / Eliceo Coffman MD / Eliceo Coffman MD Interpreting Provider: Eliceo Coffman MD Chest X-Ray 10/23/16 21:31 IMPRESSION: Support apparatus as described above. Patchy bilateral airspace disease, increasing at the right base as compared to prior with probable posterior layering right pleural effusion. D/ / Osman Kapoor MD / Osman Kapoor MD Interpreting Provider: Osman Kapoor MD Chest X-Ray 10/24/16 09:22 IMPRESSION: 1. Stable position of lines and tubes as above. Left central venous catheter tip overlies the left innominate vein. 2. Unchanged diffuse interstitial and airspace opacities with an upper lobe predominance, which could be related to cardiogenic pulmonary edema versus ARDS or diffuse infection. D/ / 10/24/2016 12:40:09 Apollo Gross MD / [facility] Interpreting Provider: Apollo Gross MD - Attending Attestation I examined this patient and my medical decision-making was reviewed with the ETHYL BLENDER/PA/Advanced Practice Nurse/Resident Physician. I agree with the documented findings, disposition and treatment plan as described except to the extent set forth below. acute liver failure with multiple organs failure along with sepsis. Very poor prognosis
[2016-10-24] MEDS: Albumin 25% 25gram/100mL 25 GM/100 ML IV.SOLN IVPB SCH ×6 (11:37→17:40)
[2016-10-24] MEDS: PrednisoLONE Oral Soln 15 MG/5 ML UDC PO SCH (12:40)
[2016-10-24] MEDS: Norepinephrine 4 MG in D5% in Water 250 ML IVC SCH ×3 (12:44→20:01)
[2016-10-24] MEDS: Sodium Bicarbonate 50 MEQ in 0.45 % Sodium Chloride 1,000 ML IVC SCH (12:44)
--- NOTE | 2016-10-24 12:59 | Pulmonology Progress Note ---
Date of Encounter: 10/24/16 Time of Encounter: 08:30 Objective PUL Vital signs: Last Vital Signs Temp 97.6 F 10/24/16 08:40 Pulse 72 10/24/16 11:30 Resp 15 10/24/16 11:54 BP 96/53 10/24/16 11:54 Pulse Ox 92 L 10/24/16 11:54 Ventilator Settings Ventilator Settings: Ventilator Settings, Last 8 Hours Ventilator Mode VC+ Ventilator Mode VC+ Ventilator Mode VC+ Ventilator Mode VC+ Ventilator Mode VC+ Ventilator Mode VC+ Ventilator Mode VC+ Ventilator Mode VC+ Ventilator Mode VC+ Ventilator Tidal Volume 525 Setting Ventilator Tidal Volume 543 Setting Ventilator Tidal Volume 550 Setting Ventilator Tidal Volume 550 Setting Ventilator Tidal Volume 550 Setting Ventilator Tidal Volume 550 Setting Ventilator Tidal Volume 550 Setting Ventilator Tidal Volume 550 Setting Ventilator Tidal Volume 550 Setting Ventilator Respiratory Rate 14 Setting Ventilator Respiratory Rate 14 Setting Ventilator Respiratory Rate 14 Setting Ventilator Respiratory Rate 14 Setting Ventilator Respiratory Rate 14 Setting Ventilator Respiratory Rate 14 Setting Ventilator Respiratory Rate 14 Setting Ventilator Respiratory Rate 14 Setting Ventilator Respiratory Rate 14 Setting Actual Respiratory Rate 15 Actual Respiratory Rate 15 Actual Respiratory Rate 17 Actual Respiratory Rate 15 Actual Respiratory Rate 17 Actual Respiratory Rate 16 Actual Respiratory Rate 20 Actual Respiratory Rate 21 Positive End Expiratory 8 Pressure Positive End Expiratory 8 Pressure Positive End Expiratory 8 Pressure Positive End Expiratory 8 Pressure Positive End Expiratory 8 Pressure Positive End Expiratory 5 Pressure Positive End Expiratory 5 Pressure Positive End Expiratory 5 Pressure Positive End Expiratory 5 Pressure Peak Inspiratory Airway 34 Pressure Peak Inspiratory Airway 34 Pressure Peak Inspiratory Airway 30 Pressure Peak Inspiratory Airway 33 Pressure Peak Inspiratory Airway 30 Pressure Peak Inspiratory Airway 32 Pressure Peak Inspiratory Airway 32 Pressure Peak Inspiratory Airway 32 Pressure Peak Inspiratory Airway 33 Pressure Peak Inspiratory Airway 31 Pressure Peak Inspiratory Airway 31 Pressure Results - Laboratory Findings CBC and BMP: 10/24/16 03:59 10/24/16 03:59 ABG ABG pH 7.33 pH Units (7.32-7.45) 10/24/16 05:25 ABG pCO2 45 mmHg (35-45) 10/24/16 05:25 ABG pO2 63 mmHg (85-104) L 10/24/16 05:25 ABG O2 Saturation 90 % (95-98) L 10/24/16 05:25 PT/INR, D-dimer PT 24.7 Seconds (9.4-12.1) H 10/23/16 09:37 Abnormal lab findings: Abnormal lab results WBC 14.6 K/mcL (4.3-11.1) H 10/24/16 03:59 RBC 2.91 M/mcL (4.19-5.50) L 10/24/16 03:59 Hgb 10.0 g/dL (12.9-16.9) L 10/24/16 03:59 Hct 29.8 % (37.5-50.1) L 10/24/16 03:59 MCV 102.4 fL (83.0-100.0) H 10/24/16 03:59 MCH 34.4 pg (28.0-33.3) H 10/24/16 03:59 RDW 16.4 % (11.5-14.5) H 10/24/16 03:59 Plt Count 65 K/mcL (140-400) L 10/24/16 03:59 Band Neutrophils % 30.0 % (0-4) H 10/24/16 03:59 Metamyelocytes % 2.0 % (0) H 10/24/16 03:59 Neutrophils # 11.4 K/mcL (1.6-8.9) H 10/24/16 03:59 Monocytes # 1.8 K/mcL (0.0-1.3) H 10/24/16 03:59 Nucleated RBCs/100 WBC 0.1 /100 WBC (0) H 10/24/16 03:59 Toxic Granulation Present (Not Present) A 10/24/16 03:59 Toxic Vacuolation Present (Not Present) A 10/24/16 03:59 Dohle Bodies Present (Not Present) A 10/21/16 21:16 Platelet Estimate Marked Decrease (Normal) L 10/24/16 03:59 Polychromasia 1+ (Not Present) A 10/21/16 21:16 Anisocytosis 1+ (Not Present) A 10/21/16 21:16 Macrocytosis Present (Not Present) A 10/23/16 04:16 Pearl Cells 1+ (Not Present) A 10/21/16 21:16 PT 24.7 Seconds (9.4-12.1) H 10/23/16 09:37 APTT 44.9 Seconds (26.0-36.0) H 10/21/16 21:16 ABG pO2 63 mmHg (85-104) L 10/24/16 05:25 ABG O2 Saturation 90 % (95-98) L 10/24/16 05:25 ABG Base Excess -2.3 mEq/L (-2.0 to 3.0) L 10/24/16 05:25 Potassium 3.4 mEq/L (3.5-4.5) L 10/24/16 03:59 BUN 80 mg/dL (8-26) H 10/24/16 03:59 Creatinine 4.42 mg/dL (0.72-1.25) H 10/24/16 03:59 Est GFR ( Amer) 16 (> 60) L 10/24/16 03:59 Est GFR (Non-Af Amer) 14 (> 60) L 10/24/16 03:59 Glucose 137 mg/dL (70-99) H 10/24/16 03:59 POC Glucose 115 (58-89) H 10/24/16 11:13 Calculated Osmolality 316 (280-300) H 10/24/16 03:59 Uric Acid 11.0 mg/dL (3.5-7.2) H 10/23/16 04:16 Calcium 8.1 mg/dL (8.6-10.8) L 10/24/16 03:59 Phosphorus 5.9 mg/dL (2.3-4.7) H 10/23/16 04:16 Total Bilirubin 4.9 mg/dL (0.2-1.2) H 10/24/16 03:59 Direct Bilirubin 3.6 mg/dL (0.0-0.5) H 10/21/16 21:16 Indirect Bilirubin 1.9 mg/dL (0.0-1.2) H 10/21/16 21:16 AST 46 Units/L (5-34) H 10/24/16 03:59 Creatine Kinase 569 Units/L (30-200) H 10/23/16 04:16 Serum Total Protein 5.8 g/dL (6.0-8.3) L 10/24/16 03:59 Albumin 2.3 g/dL (3.5-5.0) L 10/24/16 03:59 Albumin/Globulin Ratio 0.7 (1.1-2.2) L 10/24/16 03:59 Vitamin B12 > 2000 pg/mL (213-816) H 10/22/16 05:50 Folate 4.2 ng/mL (7.0-31.4) L 10/22/16 05:50 Urine Clarity Cloudy (Clear) A 10/22/16 03:27 Urine Ketones Trace mg/dL (Negative) H 10/22/16 03:27 Urine Bilirubin Small (Negative) H 10/22/16 03:27 Ur Leukocyte Esterase Small (Negative) H 10/22/16 03:27 Urine Microscopic RBC 3-5 per hpf (0-3) H 10/22/16 03:27 Urine Microscopic WBC 5-15 per hpf (0-3) H 10/22/16 03:27 Ur Squamous Epith Cells Many per lpf (None-Few) H 10/22/16 03:27 Urine Bacteria Many per hpf (None-Few) H 10/22/16 03:27 Ur Culture Indicated? YES (NO) A 10/22/16 03:27 Protein/Creatinin Ratio 0.67 mg/mg (0-0.20) H 10/22/16 22:00 Urine Total Protein 198 mg/dL (1-14) H 10/22/16 22:00 Urine Opiates Screen Positive ng/mL (Dplydn=205) H 10/22/16 03:27 U Benzodiazepines Scrn Positive ng/mL (Izhhpu=096) H 10/22/16 03:27 Enterobacteriac sp PCR DETECTED (Not Detect) A 10/21/16 21:16 Klebsiella pneumoniae DETECTED (Not Detect) A 10/21/16 21:16 - Microbiology Findings Microbiology Findings: Microbiology, Last 48 Hours 10/23/16 04:16 Blood Culture - Preliminary Peripheral Venipuncture No growth. 10/22/16 03:27 Urine Culture - Final Urine,Clean Catch Klebsiella pneumoniae - Clinical Findings Intake & Output: Intake & Output 10/23/16 10/24/16 10/24/16 23:59 07:59 15:59 Intake Total 1482.4 / 1482.4 2004.2 / 2004.2 444.4 / 444.4 Output Total 675 / 675 825 / 825 400 / 400 Balance 807.4 / 807.4 1179.2 / 1179.2 44.4 / 44.4 Weight 91.081 kg Consult Discharge Plan - Plan Referrals: Zhou Kern Jr, MD [Primary Care Provider] - 11/01/16 11:40 am
--- NOTE | 2016-10-24 13:48 | Palliative - Consult Note ---
Date of Encounter: 10/24/16 Time of Encounter: 11:00 - Assessment and Plan (1) Anxiety Current Visit: Yes Status: Acute Assessment and plan: Continues receiving Diprivan per ICU protocol. Continue and monitor (2) Counseling regarding advanced care planning and goals of care Current Visit: Yes Status: Acute Assessment and plan: Discussed with pt only daughter, Stacy, as well as pt sister, Rosaura. Patient has no healthcare POA in place. Daughter Stacy states she is quite overwhelmed at this time, and that she had to make decisions with her mother , so she desires to consult to pt sister, Rosaura for decisions. Discussed code status with both of them, and they agree that pt most likely would not survive a code situation, and transitioned to DNRCC-Arrest. They would like for present management to continue at this time and are trying to find a time they can come to hospital to meed...Patient was living alone - if he survives, will need sr. social media & mobile manager closely involved for d/e plan. MELD 37 - poor prognosis ( 80% 3-month mortality rate) . Will continue to follow. (3) Acute kidney failure Current Visit: Yes Status: Acute Qualifiers: Acute renal failure type: with acute tubular necrosis Qualified Code(s): N17.0 - Acute kidney failure with tubular necrosis (4) Bacteremia due to Gram-negative bacteria Current Visit: Yes Status: Acute (5) Alcoholic cirrhosis of liver with ascites Current Visit: Yes Status: Chronic (6) Liver cirrhosis Current Visit: Yes Status: Acute Qualifiers: Hepatic cirrhosis type: unspecified hepatic cirrhosis Ascites presence: with ascites Qualified Code(s): K74.60 - Unspecified cirrhosis of liver Palliative-CN HPI - Data of Consult Requesting Physician: Sarkis Li MD Primary Care Provider: Zhou Kern Jr, MD - Consult Narrative History of present illness: Mr. Hook is a 61 year old male CC: Sarkis Li MD Past Med Surg Social Fam HX - Past Medical History Medical history: cirrhosis, hepatitis Psychiatric history: no psych history - Past Surgical History Surgical History: no surgical history - Social History Smoking Status: Current every day smoker Smokeless Tobacco Status: No Alcohol use: heavy, recent Drug use: none - Family History Father Adopted: No Family Member Ethnicity: Non- Living Status: Hx Family Cardiac Disorders: No Hx Family Respiratory Disorders: No Hx Family Cancer: No Hx Family GI Disorders: No Hx Family Endocrine Disorder: No Hx Family Neuromuscular Disorders: No Hx Family Neurologic Disorders: No Hx Family HEENT Disorders: No Hx Family Autoimmune Disorders: No Mother Adopted: No Family Member Ethnicity: Non- Living Status: Hx Family Cardiac Disorders: Yes Hx Family Respiratory Disorders: No Hx Family Cancer: No Hx Family GI Disorders: No Hx Family Endocrine Disorder: No Hx Family Neuromuscular Disorders: No Hx Family Neurologic Disorders: No Hx Family HEENT Disorders: No Hx Family Autoimmune Disorders: No Medications and Allergies Ranitidine HCl [Heartburn Relief] 150 mg PO BID 02/28/16 [History] Furosemide [Lasix] 40 mg PO DAILY #30 tablet 04/26/16 [Rx] Lactulose 20 gm PO BID 30 Days 04/26/16 [Rx] Diazepam [Valium] 5 mg PO Q4H PRN 07/22/16 [History] Magnesium Oxide [Mag-Ox] 400 mg PO BID #60 tablet 07/24/16 [Rx] Potassium Chloride 20 meq PO DAILY #30 tab.er.prt 07/24/16 [Rx] HYDROcodone/Acet 5/325 mg [[place] 5-325 mg] 1 tab PO Q6H PRN #30 tab 08/25/16 [Rx ] Nadolol [Corgard] 20 mg PO DAILY #30 tablet 08/25/16 [Rx] Allergies aspirin Adverse Reaction (Severe, Verified 08/23/16 07:43) Gastrointestinal Upset BLEEDING/NAUSEA/VOMITING NSAIDS (Non-Steroidal Anti-Inflamma Adverse Reaction (Severe, Verified 08/23/16 07:43) Gastrointestinal Upset BLEEDING/NAUSEA/VOMITING ROS unobtainable: due to endotracheal tube Palliative Care-Exam - Constitutional Vitals: Temp Pulse Resp BP Pulse Ox 97.6 F 73 15 90/52 91 L 10/24/16 08:40 10/24/16 12:30 10/24/16 13:33 10/24/16 13:33 10/24/16 13:33 General appearance: Present: no acute distress - Head Head Exam: Present: normal inspection, normocephalic - Eye Eye exam: Present: normal appearance - Respiratory Additional comments: Breath sounds diminished to lower lobes. Remains on vent 70% Fio2 - 8 PEEP - Cardiovascular Cardiovascular exam: Present: +S1, +S2 - GI/Abdominal Exam GI/Abdominal exam: Present: diminished bowel sounds, distended - Catheter Type: Urethral (Jacobs) Additional comments: Clear yellow urine noted - Extremities Exam Additional comments: Generalized edema to all extremities - Neurological Exam Additional comments: Sedated on vent at this time. Head movements noted with tactile stimuli. Does not follow commands. - Skin Skin exam: Present: dry, pallor, warm Internal Medicine - CN: Reslt - Labs CBC & Chem 7: 10/24/16 03:59 10/24/16 03:59 Labs: Short CBC 10/24/16 Range/Units 03:59 WBC 14.6 H (4.3-11.1) K/mcL Hgb 10.0 L (12.9-16.9) g/dL Hct 29.8 L (37.5-50.1) % Plt Count 65 L (140-400) K/mcL Neutrophils # 11.4 H (1.6-8.9) K/mcL BMP 10/24/16 03:59 Sodium 140 Potassium 3.4 L Chloride 109 Carbon Dioxide 20 BUN 80 H Creatinine 4.42 H Glucose 137 H Calcium 8.1 L Liver Function 10/24/16 Range/Units 03:59 Total Bilirubin 4.9 H (0.2-1.2) mg/dL AST 46 H (5-34) Units/L ALT 22 (0-55) Units/L Alkaline Phosphatase 57 (38-126) Units/L Albumin 2.3 L (3.5-5.0) g/dL - ABG Interpretation ABG results: ABG ABG pH 7.33 pH Units (7.32-7.45) 10/24/16 05:25 ABG pCO2 45 mmHg (35-45) 10/24/16 05:25 ABG pO2 63 mmHg (85-104) L 10/24/16 05:25 ABG O2 Saturation 90 % (95-98) L 10/24/16 05:25 PT/INR, D-dimer PT 24.7 Seconds (9.4-12.1) H 10/23/16 09:37 - Impressions Impressions Paracentesis Ultrasound 10/23/16 00:00 IMPRESSION: Successful ultrasound guided paracentesis. D/ / Kenneth Lewis MD / Kenneth Lewis MD Interpreting Provider: Kenneth Lewis MD Chest X-Ray 10/23/16 17:50 IMPRESSION: 1. Worsening bilateral lung infiltrates which may be related to pneumonia, ARDS, versus pulmonary edema. 2. Left internal jugular vein catheter tip terminates in the region of the brachiocephalic vein. No pneumothorax. D/ / 10/23/2016 18:31:01 Ric Jacobs MD / noa Interpreting Provider: Ric Jacobs MD Chest X-Ray 10/23/16 21:31 IMPRESSION: Mild interval retraction of endotracheal tube, tip projecting over the mid thoracic trachea. Bilateral multifocal consolidation. Suspect small right pleural effusion. D/ / Eliceo Coffman MD / Eliceo Coffman MD Interpreting Provider: Eliceo Coffman MD Chest X-Ray 10/23/16 21:31 IMPRESSION: Support apparatus as described above. Patchy bilateral airspace disease, increasing at the right base as compared to prior with probable posterior layering right pleural effusion. D/ / Osman Kapoor MD / Osman Kapoor MD Interpreting Provider: Osman Kapoor MD Chest X-Ray 10/24/16 09:22 IMPRESSION: 1. Stable position of lines and tubes as above. Left central venous catheter tip overlies the left innominate vein. 2. Unchanged diffuse interstitial and airspace opacities with an upper lobe predominance, which could be related to cardiogenic pulmonary edema versus ARDS or diffuse infection. D/ / 10/24/2016 12:40:09 Apollo Gross MD / noa Interpreting Provider: Apollo Gross MD Consult Discharge Plan - Plan Referrals: Zhou Kern Jr, MD [Primary Care Provider] - 11/01/16 11:40 am Palliative Quality Palliative Quality: Screen for Code Status: Yes, Screen for Goals of Care: Yes, Screen for Pain: Yes, If Pain Regimen Started, Initiate Bowel Regimen: NA, Screen for Nausea/Vomitting: NA Code Status: 10/22/16 00:17 Resuscitation Status: Active [RES] Routine Comment: Resuscitation Status: Full Code 10/24/16 12:02 DNR [Resuscitation Status: Active] [RES] Routine Comment: Resuscitation Status: DNR-Comfort Care-Arrest
--- NOTE | 2016-10-24 14:20 | Pulmonology Consult Note ---
<Noble Engel - Last Filed: 10/24/16 14:17> Date of Encounter: 10/24/16 Time of Encounter: 08:30 Assessment and Plan (1) Alcoholic cirrhosis of liver with ascites Current Visit: Yes Status: Chronic Patient has history of liver cirrhosis due to alcohol usage and hepatitis C. Prior medical history indicates portal hypertension. Maddrey's discovered factor 63, indicating poor prognosis and likely benefit from stress dose steroids. For GI meld score 37 and Noemi Chiu C. 9 L paracentesis performed yesterday Coagulopathy and thrombocytopenia likely result of liver function GI following, appreciate recommendations for continued care Midodrin, octreotide, and albumin started Patient has received multivitamins through "banana bag" We will start 40 mg prednisolone daily Continue lactulose and rifaximin (2) Acute kidney failure Current Visit: Yes Status: Acute Patient now has acute kidney failure since admission, with serum creatinine at 3.84 on 10/21/16 this has gone up to 4.55. Given patient history of portal hypertension and liver cirrhosis, concern for hepatorenal syndrome is present Nephrology is following, appreciate recommendations for continued care Patient might require Nilda if continued worsening kidney function Continue to monitor kidney function and electrolytes Qualifiers: Acute renal failure type: with acute tubular necrosis Qualified Code(s): N17.0 - Acute kidney failure with tubular necrosis (3) Septic shock Current Visit: Yes Status: Acute Bandemia, leukocytosis, blood cultures positive for Klebsiella, urine culture positive for Klebsiella, suspicious findings on chest x-ray for pneumonia. Patient hypotensive with evident organ failure of liver and kidneys. We will continue to monitor fluid level closely We will continue Zosyn We will stop vancomycin due to apparent Klebsiella infection We will change dopamine to Levophed (4) Bacteremia due to Gram-negative bacteria Current Visit: Yes Status: Acute Plan as above (5) UTI (urinary tract infection) Current Visit: Yes Status: Acute Plan as above Qualifiers: Urinary tract infection type: acute cystitis Qualified Code(s): N30.00 - Acute cystitis without hematuria (6) Rhabdomyolysis Current Visit: Yes Status: Acute Initial CK 1634, has shown to be decreasing over several days to 569 when last checked. Nephrology not concerned that this is cause of kidney failure. Qualifiers: Rhabdomyolysis type: non-traumatic Qualified Code(s): M62.82 - Rhabdomyolysis (7) Coagulopathy Current Visit: Yes Status: Acute Result of liver disease/cirrhosis (8) DVT prophylaxis Current Visit: Yes Status: Acute GI prophylaxis pantoprazole DVT prophylaxis: auto anticoagulation Neuro/sedation: Patient unresponsive currently, result of sedation with propofol with possible hepatic encephalopathy graduating. Pulmonary: Likely pneumonia given findings of right lower opacification. Consent for aspiration. We will continue Zosyn Cardiovascular: Patient pretense of requiring pressor to maintain blood pressures. Currently on norepinephrine Fluids/electrolytes: Patient has anasarca and ascites with 9 L paracentesis performed yesterday. We will monitor fluids closely GI: History of liver cirrhosis due to alcohol and hepatitis C, portal hypertension, and ascites. 9 L paracentesis performed yesterday. Patient on lactulose and rifaximin. GI consulted. Started on octreotide, measuring, albumin. Renal: Acute renal failure, Nilda per nephrology. Concern for possible hepatorenal. We will continue to monitor ID: Bandemia, Klebsiella bacteremia, urine culture shows Klebsiella, concern for pneumonia. Will continue patient Zosyn and stop vancomycin Heme/Onc: Patient has stable anemia around 10, thrombocytopenia, auto anticoagulation due to liver disease. Stable Endocrine: Multivitamin/banana bag given. Integumentary: Jaundice present. Skin care per ICU protocol Disposition: Vision prognosis poor CODE STATUS: DNR CCA History of Present Illness Consult date: 10/24/16 Requesting physician: Josiah Devlin Reason for consult: hypoxemia, other (Patient intubated) Chief complaint: Altered mental status and Cirrhosis with ascites History of present illness: Mr. Hook was brought to the hospital on 10/21/16 by squad after his sister had found him naked and confused on the floor of his home. She will previously seen him normal 2 days prior to this incident. In the emergency room he was found to have a blood glucose 40, elevated lactic acid level, bandemia, acute renal failure, and CK of 1634. He had been admitted to [facility] where he underwent paracentesis on 10/23/16 of 9 L transitive fluid. Unfortunately, he was having continued worsening of his mental status that necessitated intubation a moderate of 10/23/16 after which she was brought to the ICU. Blood cultures resulted in pansensitive Klebsiella, urine culture also grew Klebsiella, and chest x-ray showed bilateral airspace disease with increased right lower opacity. When seen in the ICU he remains intubated and sedated, and unresponsive. He is on pressor support with dopamine to maintain adequate blood pressure. He had been seen by the volunteer manager and news librarian previously. He was started on octreotide, Midodrin, and albumin. He is on antibiotics for his numerous infections. He has a medical history significant for alcoholic liver cirrhosis, hepatitis C , portal hypertension, and ascites. Past Med Surg Social Fam HX - Past Medical History Medical history: cirrhosis, hepatitis Psychiatric history: no psych history - Past Surgical History Surgical History: no surgical history - Social History Smoking Status: Current every day smoker Smokeless Tobacco Status: No Alcohol use: heavy, recent Drug use: none - Family History Father Adopted: No Family Member Ethnicity: Non- Living Status: Hx Family Cardiac Disorders: No Hx Family Respiratory Disorders: No Hx Family Cancer: No Hx Family GI Disorders: No Hx Family Endocrine Disorder: No Hx Family Neuromuscular Disorders: No Hx Family Neurologic Disorders: No Hx Family HEENT Disorders: No Hx Family Autoimmune Disorders: No Mother Adopted: No Family Member Ethnicity: Non- Living Status: Hx Family Cardiac Disorders: Yes Hx Family Respiratory Disorders: No Hx Family Cancer: No Hx Family GI Disorders: No Hx Family Endocrine Disorder: No Hx Family Neuromuscular Disorders: No Hx Family Neurologic Disorders: No Hx Family HEENT Disorders: No Hx Family Autoimmune Disorders: No Medications and Allergies Ranitidine HCl [Heartburn Relief] 150 mg PO BID 02/28/16 [History] Furosemide [Lasix] 40 mg PO DAILY #30 tablet 04/26/16 [Rx] Lactulose 20 gm PO BID 30 Days 04/26/16 [Rx] Diazepam [Valium] 5 mg PO Q4H PRN 07/22/16 [History] Magnesium Oxide [Mag-Ox] 400 mg PO BID #60 tablet 07/24/16 [Rx] Potassium Chloride 20 meq PO DAILY #30 tab.er.prt 07/24/16 [Rx] HYDROcodone/Acet 5/325 mg [[place] 5-325 mg] 1 tab PO Q6H PRN #30 tab 08/25/16 [Rx ] Nadolol [Corgard] 20 mg PO DAILY #30 tablet 08/25/16 [Rx] Allergies aspirin Adverse Reaction (Severe, Verified 08/23/16 07:43) Gastrointestinal Upset BLEEDING/NAUSEA/VOMITING NSAIDS (Non-Steroidal Anti-Inflamma Adverse Reaction (Severe, Verified 08/23/16 07:43) Gastrointestinal Upset BLEEDING/NAUSEA/VOMITING ROS unobtainable: due to endotracheal tube, due to mental status Physical Examination Vital Signs: Vital Signs, Last 4 Hours Temp Pulse Resp BP Pulse Ox 10/24/16 13:33 15 90/52 91 L 10/24/16 12:30 73 18 95/56 94 L 10/24/16 11:54 15 96/53 92 L 10/24/16 11:30 72 16 96/53 92 L 10/24/16 11:10 97.6 F 10/24/16 10:48 15 98/57 91 L 10/24/16 10:30 76 17 99/63 92 L General appearance: no acute distress, comatose Eyes: icteric ENT: oropharynx moist Effort: other (Intubated and mechanically ventilated) Auscultation: left: clear, right: rales Cardiovascular: regular rate and rhythm Gastrointestinal: normoactive bowel sounds, soft, non-distended, other ( Anasarca present, no fluid wave appreciated) Integumentary: other (Jaundice present) Extremities: no cyanosis, no clubbing, pink and warm (Legs), cool (Hands cool), edema (1-2+ bilateral), anasarca Musculoskeletal: no deformities pupils equal and round (And reactive) other (Intubated and sedated) Ventilator Settings Ventilator Settings: Ventilator Settings, Last 8 Hours Ventilator Mode VC+ Ventilator Mode VC+ Ventilator Mode VC+ Ventilator Mode VC+ Ventilator Mode VC+ Ventilator Mode VC+ Ventilator Mode VC+ Ventilator Mode VC+ Ventilator Tidal Volume 561 Setting Ventilator Tidal Volume 550 Setting Ventilator Tidal Volume 525 Setting Ventilator Tidal Volume 543 Setting Ventilator Tidal Volume 550 Setting Ventilator Tidal Volume 550 Setting Ventilator Tidal Volume 550 Setting Ventilator Tidal Volume 550 Setting Ventilator Respiratory Rate 14 Setting Ventilator Respiratory Rate 14 Setting Ventilator Respiratory Rate 14 Setting Ventilator Respiratory Rate 14 Setting Ventilator Respiratory Rate 14 Setting Ventilator Respiratory Rate 14 Setting Ventilator Respiratory Rate 14 Setting Ventilator Respiratory Rate 14 Setting Actual Respiratory Rate 15 Actual Respiratory Rate 19 Actual Respiratory Rate 15 Actual Respiratory Rate 15 Actual Respiratory Rate 17 Actual Respiratory Rate 15 Actual Respiratory Rate 17 Actual Respiratory Rate 16 Positive End Expiratory 8 Pressure Positive End Expiratory 8 Pressure Positive End Expiratory 8 Pressure Positive End Expiratory 8 Pressure Positive End Expiratory 8 Pressure Positive End Expiratory 8 Pressure Positive End Expiratory 8 Pressure Positive End Expiratory 5 Pressure Peak Inspiratory Airway 32 Pressure Peak Inspiratory Airway 33 Pressure Peak Inspiratory Airway 34 Pressure Peak Inspiratory Airway 34 Pressure Peak Inspiratory Airway 30 Pressure Peak Inspiratory Airway 33 Pressure Peak Inspiratory Airway 30 Pressure Peak Inspiratory Airway 32 Pressure Peak Inspiratory Airway 32 Pressure Peak Inspiratory Airway 32 Pressure Peak Inspiratory Airway 33 Pressure Results - Laboratory Findings CBC and BMP: 10/24/16 03:59 10/24/16 03:59 ABG ABG pH 7.33 pH Units (7.32-7.45) 10/24/16 05:25 ABG pCO2 45 mmHg (35-45) 10/24/16 05:25 ABG pO2 63 mmHg (85-104) L 10/24/16 05:25 ABG O2 Saturation 90 % (95-98) L 10/24/16 05:25 PT/INR, D-dimer PT 24.7 Seconds (9.4-12.1) H 10/23/16 09:37 Abnormal lab findings: Abnormal lab results WBC 14.6 K/mcL (4.3-11.1) H 10/24/16 03:59 RBC 2.91 M/mcL (4.19-5.50) L 10/24/16 03:59 Hgb 10.0 g/dL (12.9-16.9) L 10/24/16 03:59 Hct 29.8 % (37.5-50.1) L 10/24/16 03:59 MCV 102.4 fL (83.0-100.0) H 10/24/16 03:59 MCH 34.4 pg (28.0-33.3) H 10/24/16 03:59 RDW 16.4 % (11.5-14.5) H 10/24/16 03:59 Plt Count 65 K/mcL (140-400) L 10/24/16 03:59 Band Neutrophils % 30.0 % (0-4) H 10/24/16 03:59 Metamyelocytes % 2.0 % (0) H 10/24/16 03:59 Neutrophils # 11.4 K/mcL (1.6-8.9) H 10/24/16 03:59 Monocytes # 1.8 K/mcL (0.0-1.3) H 10/24/16 03:59 Nucleated RBCs/100 WBC 0.1 /100 WBC (0) H 10/24/16 03:59 Toxic Granulation Present (Not Present) A 10/24/16 03:59 Toxic Vacuolation Present (Not Present) A 10/24/16 03:59 Dohle Bodies Present (Not Present) A 10/21/16 21:16 Platelet Estimate Marked Decrease (Normal) L 10/24/16 03:59 Polychromasia 1+ (Not Present) A 10/21/16 21:16 Anisocytosis 1+ (Not Present) A 10/21/16 21:16 Macrocytosis Present (Not Present) A 10/23/16 04:16 [place] Cells 1+ (Not Present) A 10/21/16 21:16 PT 24.7 Seconds (9.4-12.1) H 10/23/16 09:37 APTT 44.9 Seconds (26.0-36.0) H 10/21/16 21:16 ABG pO2 63 mmHg (85-104) L 10/24/16 05:25 ABG O2 Saturation 90 % (95-98) L 10/24/16 05:25 ABG Base Excess -2.3 mEq/L (-2.0 to 3.0) L 10/24/16 05:25 Potassium 3.4 mEq/L (3.5-4.5) L 10/24/16 03:59 BUN 80 mg/dL (8-26) H 10/24/16 03:59 Creatinine 4.42 mg/dL (0.72-1.25) H 10/24/16 03:59 Est GFR ( Amer) 16 (> 60) L 10/24/16 03:59 Est GFR (Non-Af Amer) 14 (> 60) L 10/24/16 03:59 Glucose 137 mg/dL (70-99) H 10/24/16 03:59 POC Glucose 115 (58-89) H 10/24/16 11:13 Calculated Osmolality 316 (280-300) H 10/24/16 03:59 Uric Acid 11.0 mg/dL (3.5-7.2) H 10/23/16 04:16 Calcium 8.1 mg/dL (8.6-10.8) L 10/24/16 03:59 Phosphorus 5.9 mg/dL (2.3-4.7) H 10/23/16 04:16 Total Bilirubin 4.9 mg/dL (0.2-1.2) H 10/24/16 03:59 Direct Bilirubin 3.6 mg/dL (0.0-0.5) H 10/21/16 21:16 Indirect Bilirubin 1.9 mg/dL (0.0-1.2) H 10/21/16 21:16 AST 46 Units/L (5-34) H 10/24/16 03:59 Creatine Kinase 569 Units/L (30-200) H 10/23/16 04:16 Serum Total Protein 5.8 g/dL (6.0-8.3) L 10/24/16 03:59 Albumin 2.3 g/dL (3.5-5.0) L 10/24/16 03:59 Albumin/Globulin Ratio 0.7 (1.1-2.2) L 10/24/16 03:59 Vitamin B12 > 2000 pg/mL (213-816) H 10/22/16 05:50 Folate 4.2 ng/mL (7.0-31.4) L 10/22/16 05:50 Urine Clarity Cloudy (Clear) A 10/22/16 03:27 Urine Ketones Trace mg/dL (Negative) H 10/22/16 03:27 Urine Bilirubin Small (Negative) H 10/22/16 03:27 Ur Leukocyte Esterase Small (Negative) H 10/22/16 03:27 Urine Microscopic RBC 3-5 per hpf (0-3) H 10/22/16 03:27 Urine Microscopic WBC 5-15 per hpf (0-3) H 10/22/16 03:27 Ur Squamous Epith Cells Many per lpf (None-Few) H 10/22/16 03:27 Urine Bacteria Many per hpf (None-Few) H 10/22/16 03:27 Ur Culture Indicated? YES (NO) A 10/22/16 03:27 Protein/Creatinin Ratio 0.67 mg/mg (0-0.20) H 10/22/16 22:00 Urine Total Protein 198 mg/dL (1-14) H 10/22/16 22:00 Urine Opiates Screen Positive ng/mL (Svbklq=795) H 10/22/16 03:27 U Benzodiazepines Scrn Positive ng/mL (Lqprxh=580) H 10/22/16 03:27 Enterobacteriac sp PCR DETECTED (Not Detect) A 10/21/16 21:16 Klebsiella pneumoniae DETECTED (Not Detect) A 10/21/16 21:16 - Microbiology Findings Microbiology Findings: Microbiology, Last 48 Hours 10/23/16 04:16 Blood Culture - Preliminary Peripheral Venipuncture No growth. 10/22/16 03:27 Urine Culture - Final Urine,Clean Catch Klebsiella pneumoniae - Clinical Findings Intake & Output: Intake & Output 10/23/16 10/24/16 10/24/16 23:59 07:59 15:59 Intake Total 1482.4 / 1482.4 2004.2 / 2004.2 604.4 / 604.4 Output Total 675 / 675 825 / 825 700 / 700 Balance 807.4 / 807.4 1179.2 / 1179.2 -95.6 / -95.6 Weight 91.081 kg Consult Discharge Plan - Plan Referrals: Zhou Kern Jr, MD [Primary Care Provider] - 11/01/16 11:40 am <Mamadou Dyer - Last Filed: 10/24/16 21:15> All Systems: A 10-system review of systems was performed and is negative for pertinent findings except as documented above in the HPI. Physical Examination Vital Signs: Vital Signs, Last 4 Hours Temp Pulse Resp BP Pulse Ox 10/24/16 20:47 97.4 F L 10/24/16 20:41 64 10/24/16 20:30 17 105/72 90 L 10/24/16 20:00 64 15 106/69 91 L 10/24/16 19:00 65 17 109/69 91 L 10/24/16 18:30 65 20 108/66 92 L 10/24/16 17:52 19 108/69 91 L 10/24/16 17:30 67 19 108/62 90 L Ventilator Settings Ventilator Settings: Ventilator Settings, Last 8 Hours Ventilator Mode VC+ Ventilator Mode VC+ Ventilator Mode VC+ Ventilator Mode VC+ Ventilator Mode VC+ Ventilator Mode VC+ Ventilator Mode VC+ Ventilator Tidal Volume 550 Setting Ventilator Tidal Volume 550 Setting Ventilator Tidal Volume 550 Setting Ventilator Tidal Volume 550 Setting Ventilator Tidal Volume 550 Setting Ventilator Tidal Volume 550 Setting Ventilator Tidal Volume 561 Setting Ventilator Respiratory Rate 14 Setting Ventilator Respiratory Rate 14 Setting Ventilator Respiratory Rate 14 Setting Ventilator Respiratory Rate 14 Setting Ventilator Respiratory Rate 14 Setting Ventilator Respiratory Rate 14 Setting Ventilator Respiratory Rate 14 Setting Actual Respiratory Rate 17 Actual Respiratory Rate 15 Actual Respiratory Rate 17 Actual Respiratory Rate 19 Actual Respiratory Rate 19 Actual Respiratory Rate 19 Actual Respiratory Rate 15 Positive End Expiratory 8 Pressure Positive End Expiratory 8 Pressure Positive End Expiratory 8 Pressure Positive End Expiratory 8 Pressure Positive End Expiratory 8 Pressure Positive End Expiratory 8 Pressure Positive End Expiratory 8 Pressure Peak Inspiratory Airway 40 Pressure Peak Inspiratory Airway 40 Pressure Peak Inspiratory Airway 42 Pressure Peak Inspiratory Airway 34 Pressure Peak Inspiratory Airway 41 Pressure Peak Inspiratory Airway 34 Pressure Peak Inspiratory Airway 36 Pressure Peak Inspiratory Airway 39 Pressure Peak Inspiratory Airway 36 Pressure Peak Inspiratory Airway 30 Pressure Peak Inspiratory Airway 32 Pressure Peak Inspiratory Airway 31 Pressure Results - Laboratory Findings CBC and BMP: 10/24/16 03:59 10/24/16 03:59 ABG ABG pH 7.33 pH Units (7.32-7.45) 10/24/16 05:25 ABG pCO2 45 mmHg (35-45) 10/24/16 05:25 ABG pO2 63 mmHg (85-104) L 10/24/16 05:25 ABG O2 Saturation 90 % (95-98) L 10/24/16 05:25 PT/INR, D-dimer PT 24.7 Seconds (9.4-12.1) H 10/23/16 09:37 Abnormal lab findings: Abnormal lab results WBC 14.6 K/mcL (4.3-11.1) H 10/24/16 03:59 RBC 2.91 M/mcL (4.19-5.50) L 10/24/16 03:59 Hgb 10.0 g/dL (12.9-16.9) L 10/24/16 03:59 Hct 29.8 % (37.5-50.1) L 10/24/16 03:59 MCV 102.4 fL (83.0-100.0) H 10/24/16 03:59 MCH 34.4 pg (28.0-33.3) H 10/24/16 03:59 RDW 16.4 % (11.5-14.5) H 10/24/16 03:59 Plt Count 65 K/mcL (140-400) L 10/24/16 03:59 Band Neutrophils % 30.0 % (0-4) H 10/24/16 03:59 Metamyelocytes % 2.0 % (0) H 10/24/16 03:59 Neutrophils # 11.4 K/mcL (1.6-8.9) H 10/24/16 03:59 Monocytes # 1.8 K/mcL (0.0-1.3) H 10/24/16 03:59 Nucleated RBCs/100 WBC 0.1 /100 WBC (0) H 10/24/16 03:59 Toxic Granulation Present (Not Present) A 10/24/16 03:59 Toxic Vacuolation Present (Not Present) A 10/24/16 03:59 Dohle Bodies Present (Not Present) A 10/21/16 21:16 Platelet Estimate Marked Decrease (Normal) L 10/24/16 03:59 Polychromasia 1+ (Not Present) A 10/21/16 21:16 Anisocytosis 1+ (Not Present) A 10/21/16 21:16 Macrocytosis Present (Not Present) A 10/23/16 04:16 [place] Cells 1+ (Not Present) A 10/21/16 21:16 PT 24.7 Seconds (9.4-12.1) H 10/23/16 09:37 APTT 44.9 Seconds (26.0-36.0) H 10/21/16 21:16 ABG pO2 63 mmHg (85-104) L 10/24/16 05:25 ABG O2 Saturation 90 % (95-98) L 10/24/16 05:25 ABG Base Excess -2.3 mEq/L (-2.0 to 3.0) L 10/24/16 05:25 Potassium 3.4 mEq/L (3.5-4.5) L 10/24/16 03:59 BUN 80 mg/dL (8-26) H 10/24/16 03:59 Creatinine 4.42 mg/dL (0.72-1.25) H 10/24/16 03:59 Est GFR ( Amer) 16 (> 60) L 10/24/16 03:59 Est GFR (Non-Af Amer) 14 (> 60) L 10/24/16 03:59 Glucose 137 mg/dL (70-99) H 10/24/16 03:59 POC Glucose 133 (58-89) H 10/24/16 19:59 Calculated Osmolality 316 (280-300) H 10/24/16 03:59 Uric Acid 11.0 mg/dL (3.5-7.2) H 10/23/16 04:16 Calcium 8.1 mg/dL (8.6-10.8) L 10/24/16 03:59 Phosphorus 5.9 mg/dL (2.3-4.7) H 10/23/16 04:16 Total Bilirubin 4.9 mg/dL (0.2-1.2) H 10/24/16 03:59 Direct Bilirubin 3.6 mg/dL (0.0-0.5) H 10/21/16 21:16 Indirect Bilirubin 1.9 mg/dL (0.0-1.2) H 10/21/16 21:16 AST 46 Units/L (5-34) H 10/24/16 03:59 Creatine Kinase 569 Units/L (30-200) H 10/23/16 04:16 Serum Total Protein 5.8 g/dL (6.0-8.3) L 10/24/16 03:59 Albumin 2.3 g/dL (3.5-5.0) L 10/24/16 03:59 Albumin/Globulin Ratio 0.7 (1.1-2.2) L 10/24/16 03:59 Vitamin B12 > 2000 pg/mL (213-816) H 10/22/16 05:50 Folate 4.2 ng/mL (7.0-31.4) L 10/22/16 05:50 Urine Clarity Cloudy (Clear) A 10/22/16 03:27 Urine Ketones Trace mg/dL (Negative) H 10/22/16 03:27 Urine Bilirubin Small (Negative) H 10/22/16 03:27 Ur Leukocyte Esterase Small (Negative) H 10/22/16 03:27 Urine Microscopic RBC 3-5 per hpf (0-3) H 10/22/16 03:27 Urine Microscopic WBC 5-15 per hpf (0-3) H 10/22/16 03:27 Ur Squamous Epith Cells Many per lpf (None-Few) H 10/22/16 03:27 Urine Bacteria Many per hpf (None-Few) H 10/22/16 03:27 Ur Culture Indicated? YES (NO) A 10/22/16 03:27 Protein/Creatinin Ratio 0.67 mg/mg (0-0.20) H 10/22/16 22:00 Urine Total Protein 198 mg/dL (1-14) H 10/22/16 22:00 Urine Opiates Screen Positive ng/mL (Kgsuyw=635) H 10/22/16 03:27 U Benzodiazepines Scrn Positive ng/mL (Iokxmz=035) H 10/22/16 03:27 Enterobacteriac sp PCR DETECTED (Not Detect) A 10/21/16 21:16 Klebsiella pneumoniae DETECTED (Not Detect) A 10/21/16 21:16 - Microbiology Findings Microbiology Findings: Microbiology, Last 48 Hours 10/23/16 04:16 Blood Culture - Preliminary Peripheral Venipuncture No growth. 10/22/16 03:27 Urine Culture - Final Urine,Clean Catch Klebsiella pneumoniae - Clinical Findings Intake & Output: Intake & Output 10/24/16 10/24/16 10/24/16 07:59 15:59 23:59 Intake Total 2003.2 / 2003.2 704.4 / 704.4 754 / 754 Output Total 825 / 825 700 / 700 950 / 950 Balance 1179.2 / 1179.2 4.4 / 4.4 -196 / -196 Weight 91.081 kg - Attending Attestation I examined this patient and my medical decision-making was reviewed with the SYSTEMS PROGRAMMER ANALYST/PA/Advanced Practice Nurse/Resident Physician. I agree with the documented findings, disposition and treatment plan as described except to the extent set forth below. Patient seen and examined. Labs, radiology, chart personally reviewed. 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 Changed patient to VC+ mode and more PEEP to support oxygenation. I suspect patient will not do good. Cardiovascular: Shock is multifactorial. Change to Levophed and empiric antibiotics. GI: Nutrition per dietary and GI prophylaxis per routine. Patient has history of alcohol and he has jaundice. He will be on steroid due to increase his Maddrey's discriminant function. Heme: coagulopathy and not able to anticoagulate for DVT prophylaxis. Patient at risk for bleeding. ID: Continue antibiotics and plan to de-escalation Renal; urine out put and renal funtion reviewed. Suspect hepato-renal syndrome. Stopped lasix and bicarbonate drip. I feel patient will benefit from renal replacement therapy. Endorcine: blood glucose is monitored Lines: all lines checked and no evidence of infections Skin: skin care to prevent pressure ulcers per nursing routine care Patient has multi-organ failure and I feel he has poor prognosis and high mortality rate. Palliative care consulted. I spent 40 min of Critical Care time with this patient. It involved decision making of high complexity to assess, manipulate, and support vital organ system failure and/or to prevent further life threatening deterioration of the patient' s condition. The time involved in the performance of separately reportable procedures was not counted toward critical care time.
[2016-10-24] MEDS: Thiamine (B-1) 100 MG, Folic Acid 1 MG, MVI, adult with vitamin K 10 ML in 0.9 % Sodi... IVPB SCH (19:21)
[2016-10-25] MEDS: Lacri-Lube 3.5 GM TUBE BOTH EYES SCH ×4 (00:05→11:56)
[2016-10-25] MEDS: Piperacillin/Tazobactam 3.375 GM in D5% in Water (Mini-Bag+) 100 ML IVPB SCH ×2 (00:05→13:27)
[2016-10-25] MEDS: Norepinephrine 4 MG in D5% in Water 250 ML IVC SCH ×3 (01:17→13:24)
[2016-10-25 04:11] LABS: Eosinophils % 0.1 %; Hematocrit 26.4 % (37.5-50.1); Immature Granulocytes % 0.8 % (0-4); Mean Corpuscular Volume 101.5 fL (83.0-100.0)
[2016-10-25 04:13] LABS: Basophils % 0.2 %; Immature Platelets 2.6 % (1.1-6.1); Lymphocytes # 0.9 K/mcL (0.6-4.6); Lymphocytes % 5.6 %; Mean Corpuscular HGB Conc 34.1 g/dL (31.6-35.5); Mean Corpuscular Hemoglobin 34.6 pg (28.0-33.3); Mean Platelet Volume 10.7 fL (9.4-12.4); Monocytes # 1.2 K/mcL (0.0-1.3); Monocytes % 7.7 %; Red Cell Distribution Width 16.6 % (11.5-14.5); Segmented Neutrophils % 85.6 %
[2016-10-25 04:14] LABS: Neutrophils # 13.5 K/mcL (1.6-8.9); Platelet Count 43 K/mcL (140-400)
[2016-10-25 04:21] LABS: Calcium 8.3 mg/dL (8.6-10.8); Magnesium 1.9 mg/dL (1.6-2.6); Phosphorous 5.8 mg/dL (2.3-4.7); Potassium 3.3 mEq/L (3.5-4.5)
[2016-10-25] MEDS: Pantoprazole 40 MG VIAL IVP SCH (05:12)
[2016-10-25 05:27] LABS: ABG Base Excess -2.4 mEq/L (-2.0 to 3.0); ABG HCO3 22.5 mEQ/L (21-27); ABG Oxygen Saturation 92 % (95-98); ABG PCO2 38 mmHg (35-45); ABG PH 7.38 pH Units (7.32-7.45); ABG PO2 65 mmHg (85-104); ABG TCO2 23.7 mEq/L (20-26)
[2016-10-25 05:28] LABS: Blood Gas FiO2 60 %; Blood Gas PEEP 5 cm H2O; Blood Gas Respiration Rate 14; Blood Gas VT 550 cc
[2016-10-25] MEDS ORDERED: Potassium Chloride Elixir 20 MEQ/15 ML UDC GTUBE ONE (05:46)
[2016-10-25] MEDS: Sodium Bicarbonate 50 MEQ in 0.45 % Sodium Chloride 1,000 ML IVC SCH (07:46)
[2016-10-25] MEDS: Multivit/Ca/Min/Fe/FA 1 TAB TABLET PO SCH (08:04)
[2016-10-25] MEDS: Zinc Sulfate 220 MG CAPSULE PO SCH (08:04)
[2016-10-25] MEDS: Thiamine (B-1) 100 MG TABLET PO SCH (08:04)
[2016-10-25] MEDS: Chlorhexidine Rinse 15 ML MOUTHWASH MM SCH (08:05)
[2016-10-25] MEDS: Lactulose Oral Soln 20 GM/30 ML UDC PO SCH ×2 (08:05→13:27)
[2016-10-25] MEDS: PrednisoLONE Oral Soln 15 MG/5 ML UDC PO SCH (08:06)
--- NOTE | 2016-10-25 08:42 | Nephrology Progress Note ---
Date of Encounter: 10/25/16 Time of Encounter: 08:25 - Assessment and Plan (1) Acute kidney failure Current Visit: Yes Status: Acute MUMTAZ in setting of urinary tract infection gram-negative sepsis, cirrhosis with ascites, post paracentesis x 9L, portal hypertension, volume overload and hypotension. On pressor. Renal fct stable and he is not hyperkalemic, urine output 1875cc, will monitor him for another day. Qualifiers: Acute renal failure type: with acute tubular necrosis Qualified Code(s): N17.0 - Acute kidney failure with tubular necrosis Subjective Interval history: intubated, on pressor. Nursing staff states bradycardic last night, AR 40's and that family unsure if wanting to take care further Objective - Vital Signs Vital signs: Vital Signs Temp Pulse Resp BP Pulse Ox 10/25/16 08:00 97.2 F L 10/25/16 07:33 19 93/58 95 10/25/16 06:30 19 91/59 94 L 10/25/16 06:00 52 19 89/58 94 L 10/25/16 05:00 51 19 84/57 94 L 10/25/16 04:51 97.4 F L 10/25/16 04:30 18 81/52 95 10/25/16 04:00 51 18 81/52 97 10/25/16 03:00 56 18 97/63 96 10/25/16 02:35 16 93/59 95 10/25/16 02:00 56 16 94/61 94 L 10/25/16 01:00 58 18 98/62 93 L 10/25/16 00:42 96.5 F L 10/25/16 00:19 16 104/64 97 10/25/16 00:00 58 15 104/64 97 10/24/16 23:00 59 17 103/66 97 10/24/16 22:30 17 101/63 96 10/24/16 22:00 59 19 101/63 95 10/24/16 21:00 62 18 107/69 95 10/24/16 20:47 97.4 F L 10/24/16 20:41 64 10/24/16 20:30 17 105/72 90 L 10/24/16 20:00 64 15 106/69 91 L 10/24/16 19:00 65 17 109/69 91 L 10/24/16 18:30 65 20 108/66 92 L 10/24/16 17:52 19 108/69 91 L 10/24/16 17:30 67 19 108/62 90 L 10/24/16 16:30 67 21 104/66 90 L 10/24/16 15:59 15 150/58 91 L 10/24/16 15:56 19 86/52 91 L 10/24/16 15:31 97.6 F 61 18 86/52 93 L 10/24/16 14:30 55 17 103/67 93 L 10/24/16 13:33 15 90/52 91 L 10/24/16 13:30 62 16 83/53 93 L 10/24/16 12:30 73 18 95/56 94 L 10/24/16 11:54 15 96/53 92 L 10/24/16 11:30 72 16 96/53 92 L 10/24/16 11:10 97.6 F 10/24/16 10:48 15 98/57 91 L 10/24/16 10:30 76 17 99/63 92 L 10/24/16 09:30 77 16 98/57 91 L Intake and Output 10/24/16 10/25/16 10/25/16 23:59 07:59 15:59 Intake Total 1008 / 1008 566 / 566 Output Total 950 / 950 500 / 500 150 / 150 Balance 58 / 58 66 / 66 -150 / -150 Intake: IV Fluids 1008 / 1008 454 / 454 Levophed 4 MG In Dextrose 508 / 508 254 / 254 5% 250 ML @ 2 MCG/MIN 7. 62 mls/hr IVC .CONT BIJAL Rx#:[id number] Diprivan 1,000 mg In 100 100 / 100 100 / 100 ml @ 5 MCG/KG/MIN 2.886 mls/hr IVC .Q24H BIJAL Rx#: [id number] Flexbumin 25 gm In 100 ml 300 / 300 @ 100 mls/hr IVPB Q1H BIJAL Rx#:[id number] Zosyn 3.375 GM In 100 / 100 100 / 100 Dextrose 5% (Minibag+) 100 ML 100 ML @ 25 mls/hr IVPB Q12H BIJAL Rx#: [id number] Tube Feeding 112 / 112 Output: Catheter 550 / 550 500 / 500 150 / 150 Gastric Drainage 400 / 400 Other: Weight 92.397 kg Blood Glucose* 133 170 149 Patient Weight 10/25/16 23:59 Weight 92.397 kg - General Appearance General appearance: Present: chronically ill, intubated EENT: Present: mucous membranes moist Neck: Present: no JVD Respiratory: Present: clear Cardiology: Present: edema, regular rate, regular rhythm Gastrointestinal: Present: hypoactive bowel sounds, distended Integumentary: Present: warm and dry - Lab 10/25/16 03:56 10/25/16 03:56 Most recent lab results ABG pH 7.38 pH Units (7.32-7.45) 10/25/16 05:08 ABG pCO2 38 mmHg (35-45) 10/25/16 05:08 ABG pO2 65 mmHg (85-104) L 10/25/16 05:08 ABG HCO3 22.5 mEQ/L (21-27) 10/25/16 05:08 ABG O2 Saturation 92 % (95-98) L 10/25/16 05:08 Calcium 8.3 mg/dL (8.6-10.8) L 10/25/16 03:56 Phosphorus 5.8 mg/dL (2.3-4.7) H 10/25/16 03:56 Magnesium 1.9 mg/dL (1.6-2.6) 10/25/16 03:56 Urine Creatinine 297 mg/dL 10/22/16 22:00 Urine Sodium 39.0 mEq/L 10/22/16 22:00 Urine Total Protein 198 mg/dL (1-14) H 10/22/16 22:00 Consult Discharge Plan - Plan Referrals: Zhou Kern Jr, MD [Primary Care Provider] - 11/01/16 11:40 am
--- NOTE | 2016-10-25 08:50 | Pulmonology Progress Note ---
<Noble Engel - Last Filed: 10/25/16 11:10> Date of Encounter: 10/25/16 Time of Encounter: 06:45 Assessment and Plan (1) Alcoholic cirrhosis of liver with ascites Current Visit: Yes Status: Chronic Patient has history of liver cirrhosis due to alcohol usage and hepatitis C. Prior medical history indicates portal hypertension. Maddrey's discovered factor 63, indicating poor prognosis and likely benefit from stress dose steroids. Meld score 37 and Noemi Chiu C. 9 L paracentesis performed 10/23/69 Coagulopathy and thrombocytopenia likely result of liver dysfunction GI following, appreciate recommendations for continued care Midodrin, octreotide, and albumin started Patient initiation via tube feeding We will start 40 mg prednisolone daily Continue lactulose and rifaximin (2) Acute kidney failure Current Visit: Yes Status: Acute Patient has developed acute kidney failure, with serum creatinine at 3.84 on 07/27 this has gone up to 4.55, now stable at 4.32. Given patient history of portal hypertension and liver cirrhosis, concern for hepatorenal syndrome is present Nephrology is following, appreciate recommendations for continued care Patient might require Nilda if continued worsening kidney function Continue to monitor kidney function and electrolytes Qualifiers: Acute renal failure type: with acute tubular necrosis Qualified Code(s): N17.0 - Acute kidney failure with tubular necrosis (3) Septic shock Current Visit: Yes Status: Acute Bandemia, leukocytosis, blood cultures positive for Klebsiella, urine culture positive for Klebsiella, suspicious findings on chest x-ray for pneumonia. Patient hypotensive with evident organ failure of liver and kidneys. We will continue to monitor fluid level closely We will continue Zosyn We will stop vancomycin due to apparent Klebsiella infection We will change dopamine to Levophed, titrate to maintain MAP above 65 (4) Bacteremia due to Gram-negative bacteria Current Visit: Yes Status: Acute Due to pansensitive Klebsiella Plan as above (5) UTI (urinary tract infection) Current Visit: Yes Status: Acute Due to Klebsiella Plan as above Qualifiers: Urinary tract infection type: acute cystitis Hematuria presence: without hematuria Qualified Code(s): N30.00 - Acute cystitis without hematuria (6) Rhabdomyolysis Current Visit: Yes Status: Acute Initial CK 1634, has shown to be decreasing over several days to 569 when last checked. Nephrology not concerned that this is cause of kidney failure. Qualifiers: Rhabdomyolysis type: non-traumatic Qualified Code(s): M62.82 - Rhabdomyolysis (7) Coagulopathy Current Visit: Yes Status: Acute Result of liver disease/cirrhosis (8) DVT prophylaxis Current Visit: Yes Status: Acute GI prophylaxis pantoprazole DVT prophylaxis: auto anticoagulation, EPCDs, no chemical prophylaxis due to concerns patient bleeding Neuro/sedation: Patient unresponsive with no sedation currently. Corneal reflex and gag reflex intact. Possible hepatic encephalopathy contributing. Pulmonary: Likely pneumonia given findings of right lower opacification. Concern for aspiration. We will continue Zosyn Cardiovascular: Patient requiring norepinephrine to maintain blood pressures. Continue norepinephrine Fluids/electrolytes: Patient has anasarca and ascites with 9 L paracentesis performed yesterday. We will monitor fluids closely GI: History of liver cirrhosis due to alcohol and hepatitis C, portal hypertension, and ascites. 9 L paracentesis performed yesterday. Patient on lactulose and rifaximin. GI consulted. Started on octreotide, Midodrin, albumin. 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 Serum creatinine stable, good urine output. Concern for possible hepatorenal remains. We will continue to monitor ID: Septic shock, Bandemia, Klebsiella bacteremia, Klebsiella UTI, concern for pneumonia. Will continue patient Zosyn. Heme/Onc: Patient hemoglobin stable, but will continue to monitor. Thrombocytopenia and auto anticoagulation due to liver disease. Endocrine: Multivitamin/banana bag given. Integumentary: Jaundice present. Skin care per ICU protocol Disposition: Overall prognosis poor. Palliative care spoke with patient family , we will likely pursue terminal extubation today around 1700 when they are available to come to the hospital. CODE STATUS: DNR CCA Subjective Principal diagnosis: Altered mental status, kidney failure, liver cirrhosis with portal hyperten Interval history: Patient remains intubated and sedated, requiring greater amounts of norepinephrine. Occasional hypoxia required increased FiO2. Patient remains comatose despite stopping all sedation. Palliative medicine spoke with patient' s sister yesterday and change CODE STATUS of DNR CCA, patient's family would like to meet when available. Objective PUL Vital signs: Last Vital Signs Temp 97.2 F L 10/25/16 08:00 Pulse 52 10/25/16 06:00 Resp 19 10/25/16 07:33 BP 93/58 10/25/16 07:33 Pulse Ox 95 10/25/16 07:33 General appearance: no acute distress, comatose Eyes: icteric ENT: oropharynx dry Effort: other (Ventilated) Auscultation: bilateral: clear Cardiovascular: other (Normal rhythm, bradycardia) Gastrointestinal: normoactive bowel sounds, soft, non-distended, other (Fluid wave present) Integumentary: other (Jaundice present, no spider angiomata moderate appreciated ) Extremities: no cyanosis, pink and warm, edema (1-2+ bilateral) Musculoskeletal: no deformities pupils equal and round (Pupils pinpoint) Ventilator Settings Ventilator Settings: Ventilator Settings, Last 8 Hours Ventilator Mode VC+ Ventilator Mode VC+ Ventilator Mode VC+ Ventilator Mode VC+ Ventilator Mode VC+ Ventilator Mode VC+ Ventilator Mode VC+ Ventilator Mode VC+ Ventilator Mode VC+ Ventilator Mode VC+ Ventilator Mode VC+ Ventilator Tidal Volume 550 Setting Ventilator Tidal Volume 550 Setting Ventilator Tidal Volume 550 Setting Ventilator Tidal Volume 550 Setting Ventilator Tidal Volume 550 Setting Ventilator Tidal Volume 550 Setting Ventilator Tidal Volume 550 Setting Ventilator Tidal Volume 550 Setting Ventilator Tidal Volume 550 Setting Ventilator Tidal Volume 550 Setting Ventilator Tidal Volume 550 Setting Ventilator Respiratory Rate 14 Setting Ventilator Respiratory Rate 14 Setting Ventilator Respiratory Rate 14 Setting Ventilator Respiratory Rate 14 Setting Ventilator Respiratory Rate 14 Setting Ventilator Respiratory Rate 14 Setting Ventilator Respiratory Rate 14 Setting Ventilator Respiratory Rate 14 Setting Ventilator Respiratory Rate 14 Setting Ventilator Respiratory Rate 14 Setting Ventilator Respiratory Rate 14 Setting Actual Respiratory Rate 19 Actual Respiratory Rate 19 Actual Respiratory Rate 19 Actual Respiratory Rate 19 Actual Respiratory Rate 18 Actual Respiratory Rate 18 Actual Respiratory Rate 18 Actual Respiratory Rate 16 Actual Respiratory Rate 16 Actual Respiratory Rate 18 Positive End Expiratory 8 Pressure Positive End Expiratory 8 Pressure Positive End Expiratory 8 Pressure Positive End Expiratory 5 Pressure Positive End Expiratory 8 Pressure Positive End Expiratory 8 Pressure Positive End Expiratory 8 Pressure Positive End Expiratory 8 Pressure Positive End Expiratory 8 Pressure Positive End Expiratory 8 Pressure Positive End Expiratory 8 Pressure Peak Inspiratory Airway 35 Pressure Peak Inspiratory Airway 35 Pressure Peak Inspiratory Airway 33 Pressure Peak Inspiratory Airway 35 Pressure Peak Inspiratory Airway 34 Pressure Peak Inspiratory Airway 33 Pressure Peak Inspiratory Airway 35 Pressure Peak Inspiratory Airway 34 Pressure Peak Inspiratory Airway 40 Pressure Peak Inspiratory Airway 38 Pressure Results - Laboratory Findings CBC and BMP: 10/25/16 03:56 10/25/16 03:56 ABG ABG pH 7.38 pH Units (7.32-7.45) 10/25/16 05:08 ABG pCO2 38 mmHg (35-45) 10/25/16 05:08 ABG pO2 65 mmHg (85-104) L 10/25/16 05:08 ABG O2 Saturation 92 % (95-98) L 10/25/16 05:08 PT/INR, D-dimer PT 24.7 Seconds (9.4-12.1) H 10/23/16 09:37 Abnormal lab findings: Abnormal lab results WBC 15.8 K/mcL (4.3-11.1) H 10/25/16 03:56 RBC 2.60 M/mcL (4.19-5.50) L 10/25/16 03:56 Hgb 9.0 g/dL (12.9-16.9) L 10/25/16 03:56 Hct 26.4 % (37.5-50.1) L 10/25/16 03:56 MCV 101.5 fL (83.0-100.0) H 10/25/16 03:56 MCH 34.6 pg (28.0-33.3) H 10/25/16 03:56 RDW 16.6 % (11.5-14.5) H 10/25/16 03:56 Plt Count 43 K/mcL (140-400) L 10/25/16 03:56 Band Neutrophils % 30.0 % (0-4) H 10/24/16 03:59 Metamyelocytes % 2.0 % (0) H 10/24/16 03:59 Neutrophils # 13.5 K/mcL (1.6-8.9) H 10/25/16 03:56 Nucleated RBCs/100 WBC 0.1 /100 WBC (0) H 10/24/16 03:59 Toxic Granulation Present (Not Present) A 10/24/16 03:59 Toxic Vacuolation Present (Not Present) A 10/24/16 03:59 Dohle Bodies Present (Not Present) A 10/21/16 21:16 Platelet Estimate Marked Decrease (Normal) L 10/24/16 03:59 Polychromasia 1+ (Not Present) A 10/21/16 21:16 Anisocytosis 1+ (Not Present) A 10/21/16 21:16 Macrocytosis Present (Not Present) A 10/23/16 04:16 Croton Cells 1+ (Not Present) A 10/21/16 21:16 PT 24.7 Seconds (9.4-12.1) H 10/23/16 09:37 APTT 44.9 Seconds (26.0-36.0) H 10/21/16 21:16 ABG pO2 65 mmHg (85-104) L 10/25/16 05:08 ABG O2 Saturation 92 % (95-98) L 10/25/16 05:08 ABG Base Excess -2.4 mEq/L (-2.0 to 3.0) L 10/25/16 05:08 Potassium 3.3 mEq/L (3.5-4.5) L 10/25/16 03:56 BUN 92 mg/dL (8-26) H 10/25/16 03:56 Creatinine 4.32 mg/dL (0.72-1.25) H 10/25/16 03:56 Est GFR ( Amer) 17 (> 60) L 10/25/16 03:56 Est GFR (Non-Af Amer) 14 (> 60) L 10/25/16 03:56 Glucose 160 mg/dL (70-99) H 10/25/16 03:56 POC Glucose 149 (58-89) H 10/25/16 07:34 Calculated Osmolality 324 (280-300) H 10/25/16 03:56 Uric Acid 11.0 mg/dL (3.5-7.2) H 10/23/16 04:16 Calcium 8.3 mg/dL (8.6-10.8) L 10/25/16 03:56 Phosphorus 5.8 mg/dL (2.3-4.7) H 10/25/16 03:56 Total Bilirubin 4.9 mg/dL (0.2-1.2) H 10/24/16 03:59 Direct Bilirubin 3.6 mg/dL (0.0-0.5) H 10/21/16 21:16 Indirect Bilirubin 1.9 mg/dL (0.0-1.2) H 10/21/16 21:16 AST 46 Units/L (5-34) H 10/24/16 03:59 Creatine Kinase 569 Units/L (30-200) H 10/23/16 04:16 Serum Total Protein 5.8 g/dL (6.0-8.3) L 10/24/16 03:59 Albumin 2.3 g/dL (3.5-5.0) L 10/24/16 03:59 Albumin/Globulin Ratio 0.7 (1.1-2.2) L 10/24/16 03:59 Vitamin B12 > 2000 pg/mL (213-816) H 10/22/16 05:50 Folate 4.2 ng/mL (7.0-31.4) L 10/22/16 05:50 Urine Clarity Cloudy (Clear) A 10/22/16 03:27 Urine Ketones Trace mg/dL (Negative) H 10/22/16 03:27 Urine Bilirubin Small (Negative) H 10/22/16 03:27 Ur Leukocyte Esterase Small (Negative) H 10/22/16 03:27 Urine Microscopic RBC 3-5 per hpf (0-3) H 10/22/16 03:27 Urine Microscopic WBC 5-15 per hpf (0-3) H 10/22/16 03:27 Ur Squamous Epith Cells Many per lpf (None-Few) H 10/22/16 03:27 Urine Bacteria Many per hpf (None-Few) H 10/22/16 03:27 Ur Culture Indicated? YES (NO) A 10/22/16 03:27 Protein/Creatinin Ratio 0.67 mg/mg (0-0.20) H 10/22/16 22:00 Urine Total Protein 198 mg/dL (1-14) H 10/22/16 22:00 Urine Opiates Screen Positive ng/mL (Ltojzm=922) H 10/22/16 03:27 U Benzodiazepines Scrn Positive ng/mL (Rpqtsd=104) H 10/22/16 03:27 Enterobacteriac sp PCR DETECTED (Not Detect) A 10/21/16 21:16 Klebsiella pneumoniae DETECTED (Not Detect) A 10/21/16 21:16 - Microbiology Findings Microbiology Findings: Microbiology, Last 48 Hours 10/23/16 04:16 Blood Culture - Preliminary Peripheral Venipuncture No growth. 10/22/16 03:27 Urine Culture - Final Urine,Clean Catch Klebsiella pneumoniae - Clinical Findings Intake & Output: Intake & Output 10/24/16 10/25/16 10/25/16 23:59 07:59 15:59 Intake Total 1008 / 1008 566 / 566 Output Total 950 / 950 500 / 500 150 / 150 Balance 58 / 58 66 / 66 -150 / -150 Weight 92.397 kg Consult Discharge Plan - Plan Referrals: Zhou Kern Jr, MD [Primary Care Provider] - 11/01/16 11:40 am <Mamadou Dyer - Last Filed: 10/25/16 16:38> Objective PUL Vital signs: Last Vital Signs Temp 97.3 F L 10/25/16 11:00 Pulse 63 10/25/16 14:00 Resp 22 10/25/16 14:00 BP 94/60 10/25/16 14:00 Pulse Ox 91 L 10/25/16 14:00 Ventilator Settings Ventilator Settings: Ventilator Settings, Last 8 Hours Ventilator Mode VC+ Ventilator Mode VC+ Ventilator Mode VC+ Ventilator Mode VC+ Ventilator Mode VC+ Ventilator Mode VC+ Ventilator Mode VC+ Ventilator Mode VC+ Ventilator Tidal Volume 550 Setting Ventilator Tidal Volume 550 Setting Ventilator Tidal Volume 550 Setting Ventilator Tidal Volume 550 Setting Ventilator Tidal Volume 550 Setting Ventilator Tidal Volume 550 Setting Ventilator Tidal Volume 550 Setting Ventilator Tidal Volume 550 Setting Ventilator Respiratory Rate 14 Setting Ventilator Respiratory Rate 14 Setting Ventilator Respiratory Rate 14 Setting Ventilator Respiratory Rate 14 Setting Ventilator Respiratory Rate 14 Setting Ventilator Respiratory Rate 14 Setting Ventilator Respiratory Rate 14 Setting Ventilator Respiratory Rate 14 Setting Actual Respiratory Rate 22 Actual Respiratory Rate 20 Actual Respiratory Rate 23 Actual Respiratory Rate 22 Actual Respiratory Rate 21 Actual Respiratory Rate 21 Actual Respiratory Rate 19 Actual Respiratory Rate 23 Positive End Expiratory 8 Pressure Positive End Expiratory 8 Pressure Positive End Expiratory 8 Pressure Positive End Expiratory 8 Pressure Positive End Expiratory 8 Pressure Positive End Expiratory 8 Pressure Positive End Expiratory 8 Pressure Positive End Expiratory 8 Pressure Peak Inspiratory Airway 33 Pressure Peak Inspiratory Airway 35 Pressure Peak Inspiratory Airway 32 Pressure Peak Inspiratory Airway 32 Pressure Peak Inspiratory Airway 36 Pressure Peak Inspiratory Airway 33 Pressure Peak Inspiratory Airway 35 Pressure Peak Inspiratory Airway 35 Pressure Results - Laboratory Findings CBC and BMP: 10/25/16 03:56 10/25/16 03:56 ABG ABG pH 7.38 pH Units (7.32-7.45) 10/25/16 05:08 ABG pCO2 38 mmHg (35-45) 10/25/16 05:08 ABG pO2 65 mmHg (85-104) L 10/25/16 05:08 ABG O2 Saturation 92 % (95-98) L 10/25/16 05:08 PT/INR, D-dimer PT 24.7 Seconds (9.4-12.1) H 10/23/16 09:37 Abnormal lab findings: Abnormal lab results WBC 15.8 K/mcL (4.3-11.1) H 10/25/16 03:56 RBC 2.60 M/mcL (4.19-5.50) L 10/25/16 03:56 Hgb 9.0 g/dL (12.9-16.9) L 10/25/16 03:56 Hct 26.4 % (37.5-50.1) L 10/25/16 03:56 MCV 101.5 fL (83.0-100.0) H 10/25/16 03:56 MCH 34.6 pg (28.0-33.3) H 10/25/16 03:56 RDW 16.6 % (11.5-14.5) H 10/25/16 03:56 Plt Count 43 K/mcL (140-400) L 10/25/16 03:56 Band Neutrophils % 30.0 % (0-4) H 10/24/16 03:59 Metamyelocytes % 2.0 % (0) H 10/24/16 03:59 Neutrophils # 13.5 K/mcL (1.6-8.9) H 10/25/16 03:56 Nucleated RBCs/100 WBC 0.1 /100 WBC (0) H 10/24/16 03:59 Toxic Granulation Present (Not Present) A 10/24/16 03:59 Toxic Vacuolation Present (Not Present) A 10/24/16 03:59 Dohle Bodies Present (Not Present) A 10/21/16 21:16 Platelet Estimate Marked Decrease (Normal) L 10/24/16 03:59 Polychromasia 1+ (Not Present) A 10/21/16 21:16 Anisocytosis 1+ (Not Present) A 10/21/16 21:16 Macrocytosis Present (Not Present) A 10/23/16 04:16 Pearl Cells 1+ (Not Present) A 10/21/16 21:16 PT 24.7 Seconds (9.4-12.1) H 10/23/16 09:37 APTT 44.9 Seconds (26.0-36.0) H 10/21/16 21:16 ABG pO2 65 mmHg (85-104) L 10/25/16 05:08 ABG O2 Saturation 92 % (95-98) L 10/25/16 05:08 ABG Base Excess -2.4 mEq/L (-2.0 to 3.0) L 10/25/16 05:08 Potassium 3.3 mEq/L (3.5-4.5) L 10/25/16 03:56 BUN 92 mg/dL (8-26) H 10/25/16 03:56 Creatinine 4.32 mg/dL (0.72-1.25) H 10/25/16 03:56 Est GFR ( Amer) 17 (> 60) L 10/25/16 03:56 Est GFR (Non-Af Amer) 14 (> 60) L 10/25/16 03:56 Glucose 160 mg/dL (70-99) H 10/25/16 03:56 POC Glucose 173 (58-89) H 10/25/16 11:35 Calculated Osmolality 324 (280-300) H 10/25/16 03:56 Uric Acid 11.0 mg/dL (3.5-7.2) H 10/23/16 04:16 Calcium 8.3 mg/dL (8.6-10.8) L 10/25/16 03:56 Phosphorus 5.8 mg/dL (2.3-4.7) H 10/25/16 03:56 Total Bilirubin 4.9 mg/dL (0.2-1.2) H 10/24/16 03:59 Direct Bilirubin 3.6 mg/dL (0.0-0.5) H 10/21/16 21:16 Indirect Bilirubin 1.9 mg/dL (0.0-1.2) H 10/21/16 21:16 AST 46 Units/L (5-34) H 10/24/16 03:59 Creatine Kinase 569 Units/L (30-200) H 10/23/16 04:16 Serum Total Protein 5.8 g/dL (6.0-8.3) L 10/24/16 03:59 Albumin 2.3 g/dL (3.5-5.0) L 10/24/16 03:59 Albumin/Globulin Ratio 0.7 (1.1-2.2) L 10/24/16 03:59 Vitamin B12 > 2000 pg/mL (213-816) H 10/22/16 05:50 Folate 4.2 ng/mL (7.0-31.4) L 10/22/16 05:50 Urine Clarity Cloudy (Clear) A 10/22/16 03:27 Urine Ketones Trace mg/dL (Negative) H 10/22/16 03:27 Urine Bilirubin Small (Negative) H 10/22/16 03:27 Ur Leukocyte Esterase Small (Negative) H 10/22/16 03:27 Urine Microscopic RBC 3-5 per hpf (0-3) H 10/22/16 03:27 Urine Microscopic WBC 5-15 per hpf (0-3) H 10/22/16 03:27 Ur Squamous Epith Cells Many per lpf (None-Few) H 10/22/16 03:27 Urine Bacteria Many per hpf (None-Few) H 10/22/16 03:27 Ur Culture Indicated? YES (NO) A 10/22/16 03:27 Protein/Creatinin Ratio 0.67 mg/mg (0-0.20) H 10/22/16 22:00 Urine Total Protein 198 mg/dL (1-14) H 10/22/16 22:00 Urine Opiates Screen Positive ng/mL (Paylwo=184) H 10/22/16 03:27 U Benzodiazepines Scrn Positive ng/mL (Gcmrfy=323) H 10/22/16 03:27 Enterobacteriac sp PCR DETECTED (Not Detect) A 10/21/16 21:16 Klebsiella pneumoniae DETECTED (Not Detect) A 10/21/16 21:16 - Microbiology Findings Microbiology Findings: Microbiology, Last 48 Hours 10/23/16 04:16 Blood Culture - Preliminary Peripheral Venipuncture No growth. 10/22/16 03:27 Urine Culture - Final Urine,Clean Catch Klebsiella pneumoniae - Clinical Findings Intake & Output: Intake & Output 10/25/16 10/25/16 10/25/16 07:59 15:59 23:59 Intake Total 820 / 820 901 / 901 Output Total 500 / 500 350 / 350 Balance 320 / 320 551 / 551 Weight 92.397 kg - Attending Attestation I examined this patient and my medical decision-making was reviewed with the AIDS NURSE/PA/Advanced Practice Nurse/Resident Physician. I agree with the documented findings, disposition and treatment plan as described except to the extent set forth below. Patient seen and examined. Labs, radiology, chart personally reviewed. 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 Palliative care consultation and patient was extubated to be transferred to palliative care bed. Cardiovascular: unstable with septic shock GI: Patient with hepatic failure Heme: Thrombocytopenia from liver disease ID: Continue antibiotics and plan to de-escalation Renal; urine out put and renal funtion reviewed Endorcine: blood glucose is monitored Lines: all lines checked and no evidence of infections Skin: skin care to prevent pressure ulcers per nursing routine care This report prognosis. Discussed with the family at the bedside and patient will be transferred to palliative care bed.
[2016-10-25] MEDS ORDERED: Albumin 25% 25gram/100mL 100 GM/400 ML IV.SOLN IVPB SCH (09:00)
--- NOTE | 2016-10-25 11:28 | Palliative Progress Note ---
Date of Encounter: 10/25/16 Time of Encounter: 11:00 - Assessment and plan (1) Dyspnea Current Visit: Yes Status: Acute Assessment and plan: Will begin opioids for dyspnea and breathlessness prior to extubation and have available PRN afterwards. Will utilized Fentanyl and avoid Morphine r/t renal function. (2) Anxiety Current Visit: Yes Status: Acute Assessment and plan: Will begin Lorazepam prior to extubation and have available PRN afterwards for anxiety/restlessness. (3) Counseling regarding advanced care planning and goals of care Current Visit: Yes Status: Acute Assessment and plan: Discussed with sister Rosaura, and daughter Stacy over the telephone. They desire to transition to comfort care and for pt to be compassionately extubated later today when they arrive. D/W ICU primary nurse Dominik, Dr. Engel, Dr. Dyer, and informed Rachel Emerson [employer] with nephrology. Will provide comfort measures following extubation. (4) Acute kidney failure Current Visit: Yes Status: Acute Qualifiers: Acute renal failure type: with acute tubular necrosis Qualified Code(s): N17.0 - Acute kidney failure with tubular necrosis (5) Bacteremia due to Gram-negative bacteria Current Visit: Yes Status: Acute (6) Alcoholic cirrhosis of liver with ascites Current Visit: Yes Status: Chronic (7) Liver cirrhosis Current Visit: Yes Status: Acute Qualifiers: Hepatic cirrhosis type: unspecified hepatic cirrhosis Ascites presence: with ascites Qualified Code(s): K74.60 - Unspecified cirrhosis of liver - Time Spent With Patient Total time spent is greater than 50% in coordination of care (as documented) at patient's floor/unit and/or counseling patient: Greater than 35 minutes - Subjective Interval history: Patient remains unresponsive to verbal and tactile stimuli. Has required Levophed and frequent titration of this to maintain blood pressure. Continues treatment for sepsis. No family present. - Constitutional Vitals: Abnormal lab results WBC 15.8 K/mcL (4.3-11.1) H 10/25/16 03:56 RBC 2.60 M/mcL (4.19-5.50) L 10/25/16 03:56 Hgb 9.0 g/dL (12.9-16.9) L 10/25/16 03:56 Hct 26.4 % (37.5-50.1) L 10/25/16 03:56 MCV 101.5 fL (83.0-100.0) H 10/25/16 03:56 MCH 34.6 pg (28.0-33.3) H 10/25/16 03:56 RDW 16.6 % (11.5-14.5) H 10/25/16 03:56 Plt Count 43 K/mcL (140-400) L 10/25/16 03:56 Band Neutrophils % 30.0 % (0-4) H 10/24/16 03:59 Metamyelocytes % 2.0 % (0) H 10/24/16 03:59 Neutrophils # 13.5 K/mcL (1.6-8.9) H 10/25/16 03:56 Nucleated RBCs/100 WBC 0.1 /100 WBC (0) H 10/24/16 03:59 Toxic Granulation Present (Not Present) A 10/24/16 03:59 Toxic Vacuolation Present (Not Present) A 10/24/16 03:59 Dohle Bodies Present (Not Present) A 10/21/16 21:16 Platelet Estimate Marked Decrease (Normal) L 10/24/16 03:59 Polychromasia 1+ (Not Present) A 10/21/16 21:16 Anisocytosis 1+ (Not Present) A 10/21/16 21:16 Macrocytosis Present (Not Present) A 10/23/16 04:16 Pearl Cells 1+ (Not Present) A 10/21/16 21:16 PT 24.7 Seconds (9.4-12.1) H 10/23/16 09:37 APTT 44.9 Seconds (26.0-36.0) H 10/21/16 21:16 ABG pO2 65 mmHg (85-104) L 10/25/16 05:08 ABG O2 Saturation 92 % (95-98) L 10/25/16 05:08 ABG Base Excess -2.4 mEq/L (-2.0 to 3.0) L 10/25/16 05:08 Potassium 3.3 mEq/L (3.5-4.5) L 10/25/16 03:56 BUN 92 mg/dL (8-26) H 10/25/16 03:56 Creatinine 4.32 mg/dL (0.72-1.25) H 10/25/16 03:56 Est GFR ( Amer) 17 (> 60) L 10/25/16 03:56 Est GFR (Non-Af Amer) 14 (> 60) L 10/25/16 03:56 Glucose 160 mg/dL (70-99) H 10/25/16 03:56 POC Glucose 149 (58-89) H 10/25/16 07:34 Calculated Osmolality 324 (280-300) H 10/25/16 03:56 Uric Acid 11.0 mg/dL (3.5-7.2) H 10/23/16 04:16 Calcium 8.3 mg/dL (8.6-10.8) L 10/25/16 03:56 Phosphorus 5.8 mg/dL (2.3-4.7) H 10/25/16 03:56 Total Bilirubin 4.9 mg/dL (0.2-1.2) H 10/24/16 03:59 Direct Bilirubin 3.6 mg/dL (0.0-0.5) H 10/21/16 21:16 Indirect Bilirubin 1.9 mg/dL (0.0-1.2) H 10/21/16 21:16 AST 46 Units/L (5-34) H 10/24/16 03:59 Creatine Kinase 569 Units/L (30-200) H 10/23/16 04:16 Serum Total Protein 5.8 g/dL (6.0-8.3) L 10/24/16 03:59 Albumin 2.3 g/dL (3.5-5.0) L 10/24/16 03:59 Albumin/Globulin Ratio 0.7 (1.1-2.2) L 10/24/16 03:59 Vitamin B12 > 2000 pg/mL (213-816) H 10/22/16 05:50 Folate 4.2 ng/mL (7.0-31.4) L 10/22/16 05:50 Urine Clarity Cloudy (Clear) A 10/22/16 03:27 Urine Ketones Trace mg/dL (Negative) H 10/22/16 03:27 Urine Bilirubin Small (Negative) H 10/22/16 03:27 Ur Leukocyte Esterase Small (Negative) H 10/22/16 03:27 Urine Microscopic RBC 3-5 per hpf (0-3) H 10/22/16 03:27 Urine Microscopic WBC 5-15 per hpf (0-3) H 10/22/16 03:27 Ur Squamous Epith Cells Many per lpf (None-Few) H 10/22/16 03:27 Urine Bacteria Many per hpf (None-Few) H 10/22/16 03:27 Ur Culture Indicated? YES (NO) A 10/22/16 03:27 Protein/Creatinin Ratio 0.67 mg/mg (0-0.20) H 10/22/16 22:00 Urine Total Protein 198 mg/dL (1-14) H 10/22/16 22:00 Urine Opiates Screen Positive ng/mL (Dkesfh=840) H 10/22/16 03:27 U Benzodiazepines Scrn Positive ng/mL (Iytmxe=334) H 10/22/16 03:27 Enterobacteriac sp PCR DETECTED (Not Detect) A 10/21/16 21:16 Klebsiella pneumoniae DETECTED (Not Detect) A 10/21/16 21:16 General appearance: Present: no acute distress - Respiratory Additional comments: Breath sounds course. Remains on vent at 70% O2 and 8 PEEP. - Cardiovascular Cardiovascular exam: Present: bradycardia - GI/Abdominal GI/Abdominal exam: Present: distended, hypoactive bowel sounds, soft - Additional comments: Jacobs with light yellow urine - Extremities Exam Additional comments: Generalized 3+ edema to all extremities - Expanded Upper Extremity Exam General: Present: abrasion - Neurological Exam Neurological exam: Present: altered Additional comments: + gag and corneal reflexes. Does not respond to verbal, tactile, or painful stimuli. - Skin Skin exam: Present: dry, pallor, warm Palliative Quality Palliative Quality: Screen for Code Status: Yes, Screen for Goals of Care: Yes, Screen for Pain: Yes, If Pain Regimen Started, Initiate Bowel Regimen: NA, Screen for Nausea/Vomitting: NA Code Status: 10/22/16 00:17 Resuscitation Status: Active [RES] Routine Comment: Resuscitation Status: Full Code 10/24/16 12:02 DNR [Resuscitation Status: Active] [RES] Routine Comment: Resuscitation Status: DNR-Comfort Care-Arrest - Labs CBC & Chem 7: 10/25/16 03:56 10/25/16 03:56 Labs: Laboratory Results - last 24 hr 10/23/16 10/24/16 10/24/16 21:00 15:32 19:59 WBC RBC Hgb Hct MCV MCH MCHC RDW Plt Count MPV Immature Gran % Seg Neutrophils % Lymphocytes % Monocytes % Eosinophils % Basophils % Neutrophils # Lymphocytes # Monocytes # Eosinophils # Basophils # Immature Plt Fraction ABG pH ABG pCO2 ABG pO2 ABG HCO3 ABG Total CO2 ABG O2 Saturation ABG Base Excess Respiration Rate Blood Gas Modality Inspired O2 Tidal Volume PEEP Sodium Potassium Chloride Carbon Dioxide BUN Creatinine Est GFR ( Amer) Est GFR (Non-Af Amer) BUN/Creatinine Ratio Glucose POC Glucose 146 H 118 H 133 H Calculated Osmolality Calcium Phosphorus Magnesium 10/25/16 10/25/16 10/25/16 00:22 03:56 03:56 WBC 15.8 H RBC 2.60 L Hgb 9.0 L Hct 26.4 L MCV 101.5 H MCH 34.6 H MCHC 34.1 RDW 16.6 H Plt Count 43 L MPV 10.7 Immature Gran % 0.8 Seg Neutrophils % 85.6 Lymphocytes % 5.6 Monocytes % 7.7 Eosinophils % 0.1 Basophils % 0.2 Neutrophils # 13.5 H Lymphocytes # 0.9 Monocytes # 1.2 Eosinophils # 0.0 Basophils # 0.0 Immature Plt Fraction 2.6 ABG pH ABG pCO2 ABG pO2 ABG HCO3 ABG Total CO2 ABG O2 Saturation ABG Base Excess Respiration Rate Blood Gas Modality Inspired O2 Tidal Volume PEEP Sodium 141 Potassium 3.3 L Chloride 106 Carbon Dioxide 21 BUN 92 H Creatinine 4.32 H Est GFR ( Amer) 17 L Est GFR (Non-Af Amer) 14 L BUN/Creatinine Ratio 21 Glucose 160 H POC Glucose 170 H Calculated Osmolality 324 H Calcium 8.3 L Phosphorus 5.8 H Magnesium 1.9 10/25/16 10/25/16 05:08 07:34 WBC RBC Hgb Hct MCV MCH MCHC RDW Plt Count MPV Immature Gran % Seg Neutrophils % Lymphocytes % Monocytes % Eosinophils % Basophils % Neutrophils # Lymphocytes # Monocytes # Eosinophils # Basophils # Immature Plt Fraction ABG pH 7.38 ABG pCO2 38 ABG pO2 65 L ABG HCO3 22.5 ABG Total CO2 23.7 ABG O2 Saturation 92 L ABG Base Excess -2.4 L Respiration Rate 14 Blood Gas Modality VCT Inspired O2 60 Tidal Volume 550 PEEP 5 Sodium Potassium Chloride Carbon Dioxide BUN Creatinine Est GFR ( Amer) Est GFR (Non-Af Amer) BUN/Creatinine Ratio Glucose POC Glucose 149 H Calculated Osmolality Calcium Phosphorus Magnesium - Impressions Impressions Chest X-Ray 10/24/16 09:22 IMPRESSION: 1. Stable position of lines and tubes as above. Left central venous catheter tip overlies the left innominate vein. 2. Unchanged diffuse interstitial and airspace opacities with an upper lobe predominance, which could be related to cardiogenic pulmonary edema versus ARDS or diffuse infection. D/ / 10/24/2016 12:40:09 Apollo Gross MD / [email or web address] Interpreting Provider: Apollo Gross MD - ABG Interpretation ABG results: ABG ABG pH 7.38 pH Units (7.32-7.45) 10/25/16 05:08 ABG pCO2 38 mmHg (35-45) 10/25/16 05:08 ABG pO2 65 mmHg (85-104) L 10/25/16 05:08 ABG O2 Saturation 92 % (95-98) L 10/25/16 05:08 PT/INR, D-dimer PT 24.7 Seconds (9.4-12.1) H 10/23/16 09:37 Consult Discharge Plan - Plan Referrals: Zhou Kern Jr, MD [Primary Care Provider] - 11/01/16 11:40 am
[2016-10-25] MEDS: D5% in 0.9% NACL 1,000 ML IVC SCH ×2 (12:38)
[2016-10-25] MEDS: Furosemide 480 MG in D5% in Water 192 ML IVC SCH (12:39)
[2016-10-25] MEDS ORDERED: *HR* LORazepam 2 MG/ML VIAL IVP PRN ×2 (14:47→16:50)
[2016-10-25] MEDS ORDERED: Atropine Sulfate 1% 40 DROP/2 ML BOTTLE SL PRN ×2 (14:48→16:50)
[2016-10-25] MEDS: *HR* FentaNYL (PF) 100 MCG/2 ML VIAL IVP PRN ×5 (15:22→18:00)
[2016-10-25] MEDS ORDERED: Ipratropium/Albuterol Neb 3 ML IH PRN (16:50)
[2016-10-25] MEDS ORDERED: Haloperidol Lactate 5 MG/ML VIAL IV PRN (16:50)
--- NOTE | 2016-10-25 17:10 | Event Note ---
Date of Encounter: 10/25/16 Time of Encounter: 17:[address] Dobbs regarding patient transfer from the ICU to palliative care bed post Endotracheal tube extubation.
[2016-10-26 06:39] VITALS: BP 64/38
--- NOTE | 2016-10-26 10:35 | Death Note ---
Discharge Sum: Summary - Date and Time Date of admission: 10/21/16 23:59 Date of : 10/26/16 Time of : 09:41 - Summary Details: 61-year-old male patient with history of alcoholic liver disease cirrhosis with ascites, portal hypertension, hepatitis C and thrombocytopenia who was admitted here with altered mental status and confusion and was diagnosed with hypoglycemia. Initial evaluation also showed that the patient had signs suggestive of sepsis along with acute renal failure. He was admitted to the hospital and started on treatment for these conditions. His blood cultures were positive for gram-negative rods and patient was placed on broad-spectrum antibiotics. His condition did not improve much despite these measures and she continued to decline and developed septic shock and respiratory failure and was transferred to ICU after being intubated. Palliative care was also consulted to guide the patient's care. After discussions with the family, the patient was made DNR given his poor prognosis and was extubated yesterday per family wishes. He was then transferred to the floor yesterday evening and remained on the [facility] floor. This morning his respiratory status started to decline and he passed on vial with his family was present at bedside. Time of is 9: 41 AM. I pronounced the patient and offered condolences to his sister and daughter who were present at bedside. - Additional Data Confirmation of as documented by pronouncing clinician: no pulse, no respirations, no heart sounds Family: at bedside Attending physician: Fernando Galvan MD Was code activated?: No Autopsy requested?: No claim examiner notified?: No Organ bank notified?: No Advance directives: Yes Hospice patient?: No Discharge Sum: Diag - PCOD Probable Cause of : Cardiorespiratory arrest Discharge Sum: Prov - Provider Primary care physician: Zhou Kern Jr, MD Admitting clinician: Josiah Devlin Consults: 10/24/16 08:40 Consult to Palliative Care [CONS] Routine Comment: Consulting Provider: Palliative Care Leonela Pronouncing clinician: Fernando Galvan - Attending Attestation This document has been at least partially created by [employer] recognition technology by Dr. Galvan. Errors in grammar, wording or other phrases may exist. If errors are found after the documentation is signed, they will be addressed individually in the addendum section of this document when appropriate.
== END 2016-10-26 13:23 | disposition expired | DRG 720 ==
LOC: EMEROO 20:51 → SUATTDRO 23:59 → 2NNU 23:59 → ICNU 10-24 00:52 → 2ANU 10-25 18:47
PROVIDERS: ADMIT Hospitalist; ATTEND Internal Medicine